=== PATIENT | male | born 1960 ===

== ENCOUNTER 2016-10-28 06:42 | Day surgery (SDC) | payer OTHER ==
[2016-10-28 07:48] VITALS: RESP 19
[2016-10-28] MEDS ORDERED: Midazolam 2 MG/2 ML VIAL ONE (08:57)
[2016-10-28] MEDS ORDERED: Propofol 10 mg/ml Inj (20 ML) ONE (08:57)
--- NOTE | 2016-10-28 09:01 | CP.SDSHP ---
Same Day Surgery H & P - History Proposed Procedure: colonoscopy Pre-Op Diagnosis: Perforated diverticulitis S/P colostomy and Hartmanns pouch - Previous Medical/Surgical History Cardiac: Other (syncope, anxiety disorder, gerd) Neuro: Backaches Misc: Other (Perforated diverticulitis, gastritis, L/S disc disease) Previous Surgical History: colostomy with Hartmanns 05/20 - Allergies Allergies: Allergies No Known Allergies Allergy (Verified 10/28/16 07:10) - Physical Exam Vital Signs: Vital Signs 10/28/16 07:00 Temperature 98.4 F Pulse Rate 58 L Respiratory 19 Rate Blood Pressure 111/61 O2 Sat by Pulse 99 Oximetry Mental Status: Alert & Oriented x3 Neuro: WNL Heart: WNL Lungs: WNL GI: WNL - Impression Impression: Diverticulitis with colostomy and Hartmanns for perforation 05/20 Pt. Evaluated Today:Candidate for Anesthesia & Procedure: Yes - Date & Time Date: 10/28/16 Time: 09:02 Short Stay Discharge - Short Stay Discharge Admitting Diagnosis/Reason for Visit: H/O/ COLONIC POLYPS / DIVERTICULITIS Disposition: HOME/ ROUTINE
[2016-10-28 09:47] VITALS: TEMP 98; O2SAT 100
[2016-10-28 10:48] VITALS: BP 103/51; PULSE 52
== END 2016-10-28 10:25 | disposition home or self-care (01) ==
LOC: C.ENDO 06:42
PROVIDERS: ATTEND Internal Medicine Gastroenterology
DX: K57.92 Diverticulitis of intestine, part unspecified, without perforation or abscess without bleeding (principal); K63.5 Polyp of colon
CPT/HCPCS: 45388; 88305; J2250; J2704

== ENCOUNTER 2016-11-12 11:11 | Inpatient (IN) | payer OTHER ==
[2016-11-12 11:42] VITALS: BMI 28.6
[2016-11-12 12:04] LABS: RBC URINE 1 /hpf (0-3); URINE BILIRUBIN NEGATIVE (NEGATIVE); URINE BLOOD NEGATIVE (NEGATIVE); URINE COLOR Yellow (YELLOW); URINE GLUCOSE (UA) NORMAL (Normal); URINE KETONE NEGATIVE (NEGATIVE); URINE LEUKOCYTE ESTERASE NEG Leu/uL (Negative); URINE PROTEIN NEGATIVE (NEGATIVE); URINE UROBILINOGEN NORMAL mg/dL (0.2-1.0); WBC URINE < 1 /hpf (0-5)
[2016-11-12] MEDS: Sodium Chloride 0.9% 1,000 ML IV SCH ×2 (12:14→22:02)
[2016-11-12 12:21] LABS: BASO # 0.1 K/uL (0.0-0.2); BASO % 0.8 % (0.0-2.0); EOS # 0.2 K/uL (0.0-0.7); EOS % 2.5 % (0.0-4.0); HEMATOCRIT 48.2 % (35.0-51.0); LYMPH % 25.7 % (20.0-40.0); MEAN CELL VOLUME 90.4 fL (80.0-94.0); MEAN CORPUSCULAR HEMOGLOBIN 30.2 pg (27.0-31.0); MEAN CORPUSCULAR HGB CONC 33.4 g/dL (33.0-37.0); MEAN PLATELET VOLUME 10.1 fL (7.2-11.7); MONO # 0.5 K/uL (0.0-0.8); MONO % 7.1 % (0.0-10.0); RED CELL DISTRIBUTION WIDTH 13.9 % (11.5-14.5); WHITE BLOOD COUNT 7.7 K/uL (4.8-10.8)
--- NOTE | 2016-11-12 12:24 | C.PDOC ---
History Of Present Illness Patient is a 55 y/o male that is sent to the ED by Dr. Shannon for admission for scheduled surgery for colostomy reversal tomorrow. Patient with history of perforated diverticulum with resection and colostomy by Dr Shannon 05/11/16. Otherwise, patient denies any current abdominal pain, or any other physical complaints at this time. Time Seen by Provider: 11/12/16 11:30 Chief Complaint (Nursing): GI Problem History Per: Patient History/Exam Limitations: no limitations Onset/Duration Of Symptoms: Days Current Symptoms Are (Timing): Still Present Severity: None Pain Scale Rating Of: 0 Radiation Of Pain To:: None Associated Symptoms: denies: Fever, Chills Exacerbating Factors: None Alleviating Factors: None Recent travel outside of the [place]: No Past Medical History Reviewed: Historical Data, Nursing Documentation, Vital Signs Vital Signs: Last Vital Signs Temp 98.2 F 11/12/16 11:42 Pulse 60 11/12/16 11:42 Resp 20 11/12/16 11:42 BP 127/85 11/12/16 11:42 Pulse Ox 99 11/12/16 12:29 - Medical History PMH: Anxiety, Depression Denies: Chronic Kidney Disease - [facility] Procedures BYPASS SIGMOID COLON TO CUTANEOUS, OPEN APPROACH (05/11/16) RESECTION OF SIGMOID COLON, OPEN APPROACH (05/11/16) Family History: States: No Known Family Hx - Social History Hx Alcohol Use: No Hx Substance Use: Yes - Immunization History Hx Tetanus Toxoid Vaccination: No Hx Influenza Vaccination: No Hx Pneumococcal Vaccination: No Review Of Systems Except As Marked, All Systems Reviewed And Found Negative. Constitutional: Negative for: Fever, Chills Gastrointestinal: Negative for: Nausea, Vomiting, Abdominal Pain Genitourinary: Negative for: Dysuria, Hematuria Musculoskeletal: Negative for: Back Pain Physical Exam - Physical Exam Appears: Non-toxic, No Acute Distress Skin: Normal Color, Warm, Dry Head: Atraumatic, Normacephalic Eye(s): bilateral: Normal Inspection, EOMI Neck: Normal ROM, Supple Chest: Symmetrical Cardiovascular: Rhythm Regular Respiratory: Normal Breath Sounds, No Rales, No Rhonchi, No Wheezing Gastrointestinal/Abdominal: Soft, No Tenderness, No Guarding, No Rebound, Other (colostomy bag in LLQ, soft pink no blood or stool) Extremity: Normal ROM Neurological/Psych: Oriented x3, Normal Speech, Normal Cognition ED Course And Treatment - Laboratory Results Result Diagrams: 11/12/16 12:15 11/12/16 12:15 Lab Interpretation: No Acute Changes ECG: Interpreted By Me, Viewed By Me ECG Rhythm: Sinus Bradycardia ECG Interpretation: No Acute Changes Rate From EC O2 Sat by Pulse Oximetry: 99 (on RA) Pulse Ox Interpretation: Normal Progress Note: Labs, EKG ordered and reviewed. Patient was given IV fluids. Medical Decision Making Medical Decision Making: Spoke with Dr Shannon who wants patient admitted for abdominal pain and dehydration, orders given for bowel prep, pre-op labs, and keep NPO past midnight. He wants medical consult with Dr Lema. Contact Dr Lema who then requests to page medical geneticist I called and spoke with resident, he will come to evaluate in ED. Dr Shannon on blue list, call and notify he asks to place on Lema service and will do surgical consult Disposition - Disposition Disposition: HOSPITALIZED Disposition Time: 11:51 Condition: STABLE - POA Present On Arrival: None - Clinical Impression Clinical Impression: Abdominal pain, Dehydration, Colostomy in place - PA / BLENDER/BRAZE APPLICATOR / Resident Statement MD/DO has reviewed & agrees with the documentation as recorded. - Scribe Statement The provider has reviewed the documentation as recorded by the Scribe Serina Aguirre All medical record entries made by the Scribe were at my direction and personally dictated by me. I have reviewed the chart and agree that the record accurately reflects my personal performance of the history, physical exam, medical decision making, and the department course for this patient. I have also personally directed, reviewed, and agree with the discharge instructions and disposition. Decision To Admit - Pt Status Changed To: Hospital Disposition Of: Inpatient - Admit Certification Admit to Inpatient:: After my assessment, the patient will require hospitalization for at least two midnights. This is because of the severity of symptoms shown, intensity of services needed, and/or the medical risk in this patient being treated as an outpatient. - InPatient: Physician Admission Certification:: Patient with history of perforated diverticulum with colon resection and colostomy by Dr Shannon. Patient now for scheduled reversal of colostomy. Needs bowel prep, IV fluids and pre-op labs - . Bed Request Type: Regular Admitting Physician: Geraldo Lucio Lema Jr. Patient Diagnosis: Abdominal pain, Dehydration, Colostomy in place
[2016-11-12 12:30] LABS: CHLORIDE 99 mmol/L (98-107); POTASSIUM 4.3 mmol/L (3.6-5.2); SODIUM 133 mmol/L (132-148)
[2016-11-12 12:32] LABS: GFR AFRICAN-AMERICAN > 60
[2016-11-12 12:33] LABS: ALB/GLOB RATIO 1.4 (1.0-2.1); ALKALINE PHOSPHATASE 43 U/L (38-126); ALT/SGPT 24 U/L (21-72); AST/SGOT 28 U/L (17-59); BLOOD UREA NITROGEN 14 mg/dL (9-20); CALCIUM 8.8 mg/dl (8.6-10.4); CARBON DIOXIDE 26 mmol/L (22-30); GLUCOSE,RANDOM 80 mg/dL (75-110); TOTAL PROTEIN 7.1 g/dL (6.3-8.3)
[2016-11-12] MEDS ORDERED: Peg-Electrolyte Oral Soln 4L (Golytely) PO ONE (12:35)
[2016-11-12] MEDS ORDERED: Dextrose 5%/0.45% NS 1,000 ML IV SCH (12:45)
[2016-11-12] MEDS ORDERED: Morphine 4 MG/ML VIAL ONE (15:26)
--- NOTE | 2016-11-12 15:39 | CP.PCM.HP ---
History of Present Illness - History of Present Illness History of Present Illness: HPI: Pt is a 55 y/o male with a PMHx of cocaine and marijuana abuse and CVA (6 years ago) who presents to the ED after he was sent by for a reversal of a colostomy bag. Pt reports that he had the ostomy placed in 2015 following an infection in his stomach. Pt cannot recall the exactly what the diagnosis was. He reports that he experienced pain in his back and numbness and tingling in his bilateral lower extremities. Pt reports that he currently feels well. Pt denies fever, chills, chest pain, shortness of breath, nausea, and vomiting. PMHx: Cocaine and marijuana abuse and CVA (6 years ago) Home medications: none reported Past Surgical Hx: ostomy bag (May 2016), right inguinal hernia repair many years ago Allergies: NKDA Social Hx: reports smoking half a pack of cigarettes/day for 40 years, reports social alcohol use, reports past history of heavy cocaine use, report daily marijuana use for over 40 years Present on Admission - Present on Admission Any Indicators Present on Admission: No Review of Systems - Constitutional Constitutional: absent: Chills, Fever - EENT Eyes: absent: Change in Vision Ears: absent: Disequilibrium, Dizziness Nose/Mouth/Throat: absent: Epistaxis - Cardiovascular Cardiovascular: absent: Chest Pain, Dyspnea, Leg Edema - Respiratory Respiratory: absent: Cough, Wheezing - Gastrointestinal Gastrointestinal: absent: Abdominal Pain, Nausea, Vomiting - Genitourinary Genitourinary: absent: Dysuria - Musculoskeletal Musculoskeletal: absent: Atrophy, Back Pain - Neurological Neurological: absent: Dizziness, Headaches - Psychiatric Psychiatric: absent: Anxiety - Endocrine Endocrine: absent: Palpitations - Hematologic/Lymphatic Hematologic: absent: Easy Bleeding Past Patient History - Past Medical History & Family History Past Medical History?: Yes - Past Social History Smoking Status: Heavy Smoker > 10 Cigarettes Daily - CARDIAC Hx Cardiac Disorders: Yes Hx Angina: Yes - PULMONARY Hx Respiratory Disorders: No - NEUROLOGICAL Hx Neurological Disorder: Yes HX Cerebrovascular Accident: Yes (''4 years ago'') - HEENT Hx HEENT Problems: No - RENAL Hx Chronic Kidney Disease: No - ENDOCRINE/METABOLIC Hx Endocrine Disorders: No - HEMATOLOGICAL/ONCOLOGICAL Hx Blood Disorders: No - INTEGUMENTARY Hx Dermatological Problems: No - MUSCULOSKELETAL/RHEUMATOLOGICAL Hx Musculoskeletal Disorders: No - GASTROINTESTINAL Hx Gastrointestinal Disorders: No Other/Comment: H/O RUPTURED COLON DUE TO INFECTION - GENITOURINARY/GYNECOLOGICAL Hx Genitourinary Disorders: Yes (SEE COMMENT) - PSYCHIATRIC Hx Anxiety: Yes Hx Depression: Yes Hx Substance Use: Yes - SURGICAL HISTORY Hx Surgeries: Yes (SEE COMMENT) Other/Comment: LEFT INGUINAL HERNIA SX - ANESTHESIA Hx Anesthesia: Yes Hx Anesthesia Reactions: No Hx Malignant Hyperthermia: No Meds Allergies/Adverse Reactions: Allergies Allergy/AdvReac Type Severity Reaction Status Date / Time No Known Allergies Allergy Verified 11/12/16 11:41 Physical Exam - Constitutional Appears: No Acute Distress - Head Exam Head Exam: ATRAUMATIC, NORMOCEPHALIC - Eye Exam Eye Exam: EOMI - ENT Exam ENT Exam: Mucous Membranes Moist. absent: Mucous Membranes Dry - Respiratory Exam Respiratory Exam: Clear to Auscultation Bilateral. absent: Rales, Rhonchi, Wheezes - Cardiovascular Exam Cardiovascular Exam: +S1, +S2. absent: Gallop, Rubs - GI/Abdominal Exam GI & Abdominal Exam: Normal Bowel Sounds, Soft. absent: Distended, Tenderness Additional comments: Ostomy bag present, clear - Extremities Exam Extremities exam: Positive for: full ROM. Negative for: pedal edema - Neurological Exam Neurological exam: Alert, Oriented x3 - Psychiatric Exam Psychiatric exam: Normal Affect, Normal Mood - Skin Skin Exam: Normal Color, Warm Results - Vital Signs Recent Vital Signs: Last Vital Signs Temp 97.3 F L 11/12/16 15:31 Pulse 60 11/12/16 15:31 Resp 20 11/12/16 15:31 BP 159/93 H 11/12/16 15:31 Pulse Ox 98 11/12/16 15:31 - Labs Result Diagrams: 11/12/16 12:15 11/12/16 12:15 Labs: Laboratory Results - last 24 hr 11/12/16 11/12/16 11/12/16 12:00 12:15 12:15 WBC 7.7 RBC 5.34 Hgb 16.1 Hct 48.2 MCV 90.4 MCH 30.2 MCHC 33.4 RDW 13.9 Plt Count 174 MPV 10.1 Neut % (Auto) 63.9 Lymph % (Auto) 25.7 [place] % (Auto) 7.1 Eos % (Auto) 2.5 Baso % (Auto) 0.8 Neut # 4.9 Lymph # 2.0 [place] # 0.5 Eos # 0.2 Baso # 0.1 PT INR APTT Sodium 133 Potassium 4.3 Chloride 99 Carbon Dioxide 26 Anion Gap 13 BUN 14 Creatinine 0.7 L Est GFR ( Amer) > 60 Est GFR (Non-Af Amer) > 60 Random Glucose 80 Calcium 8.8 Total Bilirubin 1.0 AST 28 ALT 24 Alkaline Phosphatase 43 Total Protein 7.1 Albumin 4.2 Globulin 2.9 Albumin/Globulin Ratio 1.4 Urine Color Yellow Urine Clarity Clear Urine pH 5.0 Ur Specific [place] 1.018 Urine Protein Negative Urine Glucose (UA) Normal Urine Ketones Negative Urine Blood Negative Urine Nitrate Negative Urine Bilirubin Negative Urine Urobilinogen Normal Ur Leukocyte Esterase Neg Urine WBC (Auto) < 1 Urine RBC (Auto) 1 11/12/16 12:15 WBC RBC Hgb Hct MCV MCH MCHC RDW Plt Count MPV Neut % (Auto) Lymph % (Auto) [place] % (Auto) Eos % (Auto) Baso % (Auto) Neut # Lymph # [place] # Eos # Baso # PT 10.7 INR 1.0 APTT 31 Sodium Potassium Chloride Carbon Dioxide Anion Gap BUN Creatinine Est GFR ( Amer) Est GFR (Non-Af Amer) Random Glucose Calcium Total Bilirubin AST ALT Alkaline Phosphatase Total Protein Albumin Globulin Albumin/Globulin Ratio Urine Color Urine Clarity Urine pH Ur Specific [place] Urine Protein Urine Glucose (UA) Urine Ketones Urine Blood Urine Nitrate Urine Bilirubin Urine Urobilinogen Ur Leukocyte Esterase Urine WBC (Auto) Urine RBC (Auto) Assessment & Plan - Assessment and Plan (Free Text) Assessment: Reversal of Ostomy: General surgery, Dr. Shannon, consulted. Antiobiotics, neomycin and flagyl, ordered as per Dr. Shannon Type and screen NPO after midnight Prophlyactic Measures: DVT: SCDs GI: Protonix 40 mg po qd
[2016-11-13] MEDS: Sodium Chloride 0.9% 1,000 ML IV SCH ×2 (08:31→20:19)
[2016-11-13] MEDS ORDERED: Pantoprazole 40 mg EC Tab PO SCH (10:00)
--- NOTE | 2016-11-13 11:04 | CP.PCM.PN ---
<Mari Madison - Last Filed: 11/13/16 11:01> Subjective - Date & Time of Evaluation Date of Evaluation: 11/13/16 Time of Evaluation: 11:04 - Subjective Subjective: Medicine Progress Note Patient seen and examined this morning. Patient is eager for his ostomy bag reversal. Patient states that he has had the bag since May 2016 after he had infection in his colon. Pt has no acute complaints and denies fever, chills , headache, nausea, vomiting, chest pain, shortness of breath, abdominal pain, diarrhea, constipation. Objective - Vital Signs/Intake and Output Vital Signs (last 24 hours): Temp Pulse Resp BP Pulse Ox 98.5 F 51 L 20 104/62 98 11/13/16 08:09 11/13/16 08:09 11/13/16 08:09 11/13/16 08:09 11/13/16 08:09 Intake and Output: 11/13/16 11/13/16 06:59 18:59 Intake Total 800 Output Total 200 Balance 600 - Medications Medications: Current Medications Sodium Chloride (Sodium Chloride 0.9%) 1,000 mls @ 100 mls/hr IV .Q10H [facility] Last Admin: 11/13/16 08:31 Dose: Not Given Morphine Sulfate (Morphine) 0.5 mg IVP Q4 PRN PRN Reason: Pain, moderate (4-7) Pantoprazole Sodium (Protonix Ec Tab) 40 mg PO DAILY [facility] Last Admin: 11/13/16 09:04 Dose: Not Given - Labs Labs: 11/12/16 12:15 11/12/16 12:15 PT 10.7 SECONDS (9.7-12.2) 11/12/16 12:15 INR 1.0 11/12/16 12:15 APTT 31 SECONDS (21-34) 11/12/16 12:15 - Constitutional Appears: Well, Non-toxic, No Acute Distress - Head Exam Head Exam: ATRAUMATIC, NORMOCEPHALIC - Eye Exam Eye Exam: EOMI, Normal appearance Pupil Exam: NORMAL ACCOMODATION - ENT Exam ENT Exam: Mucous Membranes Moist - Neck Exam Neck Exam: Normal Inspection - Respiratory Exam Respiratory Exam: Clear to Ausculation Bilateral, NORMAL BREATHING PATTERN. absent: Rhonchi, Wheezes, Respiratory Distress - Cardiovascular Exam Cardiovascular Exam: REGULAR RHYTHM, +S1, +S2 - GI/Abdominal Exam GI & Abdominal Exam: Soft, Normal Bowel Sounds. absent: Firm, Guarding, Rigid, Tenderness Additional comments: left ostomy bag - Extremities Exam Extremities Exam: Normal Inspection. absent: Pedal Edema - Neurological Exam Neurological Exam: Alert, Awake, CN II-XII Intact, Normal Gait, Oriented x3 - Psychiatric Exam Psychiatric exam: Normal Affect, Normal Mood - Skin Skin Exam: Dry, Intact, Normal Color, Warm Assessment and Plan - Assessment and Plan (Free Text) Assessment: 1. Reversal of Ostomy: General surgery, Dr. Shannon, consulted. Antiobiotics, neomycin and flagyl, ordered as per Dr. Shannon Type and screen NPO for ostomy reversal today 2. Prophlyactic Measures: DVT: SCDs GI: Protonix 40 mg po qd No chemical anticoagulation due to pending surgery Management per Dr Lema <Geraldo Lema Jr. - Last Filed: 11/16/16 10:06> Objective - Vital Signs/Intake and Output Vital Signs (last 24 hours): Temp Pulse Resp BP Pulse Ox 98.4 F 98 H 13 121/60 98 11/16/16 09:03 11/16/16 09:00 11/16/16 09:00 11/16/16 08:03 11/16/16 09:00 Intake and Output: 11/16/16 11/16/16 06:59 18:59 Intake Total 1200 400 Output Total 700 0 Balance 500 400 - Medications Medications: Current Medications Acetylcysteine (Acetylcysteine 20%) 4 ml INH RQ6 [facility] Last Admin: 11/16/16 01:35 Dose: Not Given Albuterol/Ipratropium (Duoneb 3 Mg/0.5 Mg (3 Ml) Ud) 3 ml INH RQ6 [facility] Last Admin: 11/16/16 01:35 Dose: Not Given Enoxaparin Sodium (Lovenox) 40 mg SC DAILY [facility] Last Admin: 11/16/16 09:13 Dose: 40 mg Ketorolac Tromethamine (Toradol) 30 mg IVP Q6 [facility] Stop: 11/17/16 12:01 Last Admin: 11/16/16 06:04 Dose: 30 mg Pantoprazole Sodium (Protonix Inj) 40 mg IVP DAILY [facility] Last Admin: 11/16/16 09:13 Dose: 40 mg - Labs Labs: 11/16/16 06:25 11/16/16 06:25 PT 10.7 SECONDS (9.7-12.2) 11/12/16 12:15 INR 1.0 11/12/16 12:15 APTT 31 SECONDS (21-34) 11/12/16 12:15 Attending/Attestation - Attestation I have personally seen and examined this patient.: Yes I have fully participated in the care of the patient.: Yes I have reviewed all pertinent clinical information, including history, physical exam and plan: Yes Notes (Text): 11/16/16 10:06 Resident note and findings reviewed
[2016-11-13] MEDS ORDERED: Propofol 10 mg/ml Inj (20 ML) ONE (14:19)
[2016-11-13] MEDS ORDERED: Lidocaine 4% (Laryng-O-Jet) Kit MM ONE (14:19)
[2016-11-13] MEDS ORDERED: Midazolam 2 MG/2 ML VIAL ONE (14:19)
[2016-11-13] MEDS ORDERED: Rocuronium 10 mg/ml (10 ml) ONE (14:19)
[2016-11-13] MEDS ORDERED: Succinylcholine Chloride 20 mg/ml Syr (5 ml) IV ONE (14:19)
[2016-11-13] MEDS ORDERED: Lidocaine Hydrochloride 5 ML INJ ONE (14:19)
[2016-11-13] MEDS ORDERED: Lactated Ringer's 1,000 ML IV ONE (14:30)
[2016-11-13] MEDS ORDERED: metroNIDAZOLE IV 500 mg/100 ml 500 MG/100 ML BAG ONE (15:07)
[2016-11-13] MEDS ORDERED: cefTRIAXone IV 1 gm in Dextros 50 ML IVPB ONE (15:08)
[2016-11-13] MEDS ORDERED: HYDROmorphone 0.5 mg/0.5 ml ISec IVP PRN ×2 (15:10→16:52)
[2016-11-13] MEDS ORDERED: Dexamethasone 4 mg/1 ml IVP PRN (16:52)
[2016-11-13] MEDS ORDERED: HYDROmorphone 0.5 mg/0.5 ml ISec IVP ONE (17:15)
--- NOTE | 2016-11-13 18:53 | CP.PCM.CON ---
<Donavon Ambrosio - Last Filed: 11/13/16 18:54> History of Present Illness - History of Present Illness History of Present Illness: ICU consult note for Concaving Machine Operator, Wil Barber HPI: Pt is a 55 y/o male with a PMHx of cocaine and marijuana abuse and CVA (6 years ago) who presents to the ED after he was sent by for a reversal of a colostomy bag. Pt reports that he had the ostomy placed in of 2015 following "an infection in his stomach." Pt cannot recall the exactly what the diagnosis was. He reports that he experienced pain in his back and numbness and tingling in his bilateral lower extremities. Pt reports that he currently feels well. Pt denies fever, chills, chest pain, shortness of breath, nausea, and vomiting. ICU consult for monitoring S/P Kentrell Reversal. Pt hemodynamically stable. PMHx: Cocaine and marijuana abuse and CVA (6 years ago) Home medications: none reported Past Surgical Hx: ostomy bag (May 2016), right inguinal hernia repair many years ago Allergies: NKDA Social Hx: reports smoking half a pack of cigarettes/day for 40 years, reports social alcohol use, reports past history of heavy cocaine use, report daily marijuana use for over 40 years Review of Systems - Constitutional Constitutional: absent: Chills, Fever - EENT Eyes: absent: Change in Vision Ears: absent: Decreased Hearing - Cardiovascular Cardiovascular: absent: Chest Pain, Dyspnea - Respiratory Respiratory: absent: Dyspnea, Dyspnea on Exertion - Gastrointestinal Gastrointestinal: Abdominal Pain (appropriate s/p surgery). absent: Nausea, Vomiting - Genitourinary Genitourinary: absent: Dysuria - Musculoskeletal Musculoskeletal: absent: Numbness, Tingling - Neurological Neurological: absent: Weakness Past Patient History - Past Medical History & Family History Past Medical History?: Yes - Past Social History Smoking Status: Heavy Smoker > 10 Cigarettes Daily - CARDIAC Hx Cardiac Disorders: Yes Hx Angina: Yes - PULMONARY Hx Respiratory Disorders: No - NEUROLOGICAL Hx Neurological Disorder: Yes HX Cerebrovascular Accident: Yes (''4 years ago'') - HEENT Hx HEENT Problems: No - RENAL Hx Chronic Kidney Disease: No - ENDOCRINE/METABOLIC Hx Endocrine Disorders: No - HEMATOLOGICAL/ONCOLOGICAL Hx Blood Disorders: No - INTEGUMENTARY Hx Dermatological Problems: No - MUSCULOSKELETAL/RHEUMATOLOGICAL Hx Musculoskeletal Disorders: No Hx Falls: No - GASTROINTESTINAL Hx Gastrointestinal Disorders: No Other/Comment: H/O RUPTURED COLON DUE TO INFECTION. Pt with left abdomen colostomy - GENITOURINARY/GYNECOLOGICAL Hx Genitourinary Disorders: Yes (SEE COMMENT) - PSYCHIATRIC Hx Anxiety: Yes Hx Depression: Yes Hx Substance Use: Yes (marijuana ad tiago) - SURGICAL HISTORY Hx Surgeries: Yes (SEE COMMENT) Other/Comment: LEFT INGUINAL HERNIA SX - ANESTHESIA Hx Anesthesia: Yes Hx Anesthesia Reactions: No Hx Malignant Hyperthermia: No Meds Allergies/Adverse Reactions: Allergies Allergy/AdvReac Type Severity Reaction Status Date / Time No Known Allergies Allergy Verified 11/12/16 11:41 - Medications Medications: Current Medications Dexamethasone (Decadron Inj) 4 mg IVP ONCE PRN PRN Reason: Nausea/Vomiting Stop: 11/13/16 18:54 Enoxaparin Sodium (Lovenox) 40 mg SC DAILY [facility] Hydromorphone HCl (Dilaudid) 0.5 mg IVP Q15M PRN PRN Reason: Pain, moderate (4-7) Stop: 11/13/16 18:53 Last Admin: 11/13/16 16:54 Dose: 0.5 mg Sodium Chloride (Sodium Chloride 0.9%) 1,000 mls @ 100 mls/hr IV .Q10H [facility] Last Admin: 11/13/16 08:31 Dose: Not Given Lactated Ringer's (Lactated Ringer's) 1,000 mls @ 100 mls/hr IV .Q10H [facility] Ketorolac Tromethamine (Toradol) 30 mg IVP ONCE PRN PRN Reason: Pain, moderate (4-7) Stop: 11/13/16 18:53 Last Admin: 11/13/16 17:07 Dose: 30 mg Meperidine HCl (Demerol) 25 mg IVP ONCE PRN PRN Reason: Shivering/Rigor Stop: 11/13/16 18:54 Metoclopramide HCl (Reglan) 10 mg IVP ONCE PRN PRN Reason: Nausea/Vomiting Stop: 11/13/16 18:54 Morphine Sulfate (Morphine) 0.5 mg IVP Q4 PRN PRN Reason: Pain, moderate (4-7) Ondansetron HCl (Zofran Inj) 4 mg IVP ONCE PRN PRN Reason: Nausea/Vomiting Stop: 11/13/16 18:54 Pantoprazole Sodium (Protonix Ec Tab) 40 mg PO DAILY [facility] Last Admin: 11/13/16 09:04 Dose: Not Given Physical Exam - Head Exam Head Exam: ATRAUMATIC, NORMAL INSPECTION, NORMOCEPHALIC - Eye Exam Eye Exam: EOMI Pupil Exam: PERRL - ENT Exam ENT Exam: Mucous Membranes Moist - Respiratory Exam Respiratory Exam: Clear to Auscultation Bilateral, NORMAL BREATHING PATTERN - Cardiovascular Exam Cardiovascular Exam: REGULAR RHYTHM, +S1, +S2 - GI/Abdominal Exam GI & Abdominal Exam: Soft, Tenderness (appropriate around surgical site) - Extremities Exam Extremities exam: Positive for: normal inspection. Negative for: pedal edema - Neurological Exam Neurological exam: Alert, Oriented x3 - Skin Skin Exam: Normal Color, Warm Results - Vital Signs Recent Vital Signs: Last Vital Signs Temp 99.5 F 11/13/16 16:50 Pulse 60 11/13/16 18:49 Resp 16 11/13/16 18:49 BP 126/64 11/13/16 18:49 Pulse Ox 97 11/13/16 18:49 - Labs Result Diagrams: 11/12/16 12:15 11/12/16 12:15 Labs: Laboratory Results - last 24 hr 11/12/16 18:24 Blood Type A NEGATIVE Antibody Screen Negative Assessment & Plan - Assessment and Plan (Free Text) Assessment: Pt is a 55 y/o male with a PMHx of cocaine and marijuana abuse and CVA (6 years ago) who presents to the ED after he was sent by for a reversal of a colostomy Plan: Pt status: Admit to ICU for monitoring s/p Kentrell reversal Reversal of Ostomy: General surgery, Dr. Shannon, consulted S/P Kentrell Reversal Morphine 0.5 mg IV Q4H Hemodynamically stable Prophlyactic Measures: DVT: SCDs, Lovenox 40mg SC Daily (start tomorrow, 11/14) GI: Protonix 40 mg po Daily LR @ 100 cc/hr D/w Dr. Wil Ambrosio, PGY-1 <Marcelino De La Torre P - Last Filed: 11/22/16 19:40> Results - Vital Signs Recent Vital Signs: Last Vital Signs Temp 98.6 F 11/18/16 08:57 Pulse 87 11/18/16 08:57 Resp 20 11/18/16 08:57 BP 125/76 11/18/16 08:57 Pulse Ox 95 11/18/16 08:57 - Labs Result Diagrams: 11/18/16 07:17 11/18/16 07:17 Attending/Attestation - Attestation I have personally seen and examined this patient.: Yes I have fully participated in the care of the patient.: Yes I have reviewed all pertinent clinical information: Yes
--- NOTE | 2016-11-13 20:07 | OP ---
PROCEDURE DATE: 11/12/2016 PREOPERATIVE DIAGNOSES: Diverticulitis status post Kentrell's procedure for perforated diverticulum. POSTOPERATIVE DIAGNOSES: Diverticulitis status post Kentrell's procedure for perforated diverticulum . PROCEDURE PERFORMED: Reversal of Kentrell's procedure. SURGEON: Partha Shannon MD HAND CLERICAL VERIFIER: Dr. Mcgowan. ANESTHESIA: General. ESTIMATED BLOOD LOSS: 50 mL. POSTOPERATIVE CONDITION: Stable. INDICATIONS FOR SURGERY: This is a 55-year-old male who is 8 months status post a Kentrell's procedu re for a perforated diverticulum. He now will undergo a reversal of his Kentrell's procedure. GROSS FINDINGS: There were minimal adhesions; however, there were very dense adhesions of a portion of the ileum to the previous rectal stump, which had to be taken down sharply, a resulting serosal te ar in the ileum required repair with silk. PROCEDURE: The patient was taken to the operating room and general anesthesia was administered. The abdomen and rectum were prepped and draped. A midline incision was made through the previous midlin e incision and adhesions were taken down sharply. The bowel was mobilized into the upper quadrant an d the aforementioned portion of ileum, which was adhesed to the rectal stump was taken down sharply a nd the serosa of the ileum was repaired with interrupted silk sutures. Next, the colostomy was taken down by making a circular incision using the Bovie and dissecting it out of the subcutaneous space t o the fascial layer. It was pulled through the abdomen and dissection was carried out sharply and bl untly until it was completely dissected free into the abdomen. The descending colon was further mobi lized along its retroperitoneal attachments and pursestring device was placed across the colon just b elow where the colostomy came through the abdomen. Approximately 5 cm portion of colon was resected in this fashion. A carlson from a 25 EEA stapler was placed in the distal colon and secured using the p ursestring suture. A 25 EEA was then introduced in the rectum and carefully attached to the carlson. T here was no "click" heard however and this had to be then taken apart to try again for secure fasteni ng. During this maneuver, the distal colon where the carlson was was partially torn, so a new pursestri ng device was placed proximal to this and this area of the colon was also resected. A new carlson was p laced and secured with a pursestring device and this was then secured to the EEA which had been inser cameron through the rectum, through the rectal stump and a secure fasten was accomplished. The EEA anast omosis was then fired and the EEA was removed easily. The air was then insufflated through the rectu m under water in the pelvis and there were no air leaks noted. The abdomen was then irrigated with 5 liters of warm saline. The colostomy site was closed internally with large bites through the rectus muscle, to the peritoneum and rectus muscle using a running #1 PDS suture. A Manjinder drain was placed in the pelvis and after the small bowel was again run, the abdomen was run and inspected. The abdom en was closed with a running #1 double stranded PDS suture. Because there was very little subcutaneo us layer to do a nice 2 layer closure, the subcutaneous tissue was widely mobilized in a greater than 30 square cm fashion and a greater than 30 square cm adjacent tissue transfer closure was performed with multiple layers of Monocryl and skin clips. The patient tolerated the procedure well and return ed to recovery room in stable condition. Partha Shannon MD cc: [id number] TT: 11/13/2016 20:05:55 cristina
[2016-11-13] MEDS: Lactated Ringer's 1,000 ML IV SCH (22:16)
[2016-11-14] MEDS: Lactated Ringer's 1,000 ML IV SCH ×4 (01:21→13:49)
[2016-11-14] MEDS: Sodium Chloride 0.9% 1,000 ML IV SCH (04:42)
[2016-11-14 06:38] LABS: BASO % 0.5 % (0.0-2.0); EOS % 0.1 % (0.0-4.0); HEMATOCRIT 47.1 % (35.0-51.0); LYMPH # 1.3 K/uL (1.0-4.3); LYMPH % 13.4 % (20.0-40.0); MEAN CELL VOLUME 88.9 fL (80.0-94.0); MEAN CORPUSCULAR HEMOGLOBIN 29.5 pg (27.0-31.0); MEAN CORPUSCULAR HGB CONC 33.1 g/dL (33.0-37.0); MONO # 0.7 K/uL (0.0-0.8); MONO % 7.9 % (0.0-10.0); RED CELL DISTRIBUTION WIDTH 13.4 % (11.5-14.5); WHITE BLOOD COUNT 9.3 K/uL (4.8-10.8)
[2016-11-14 07:15] LABS: CHLORIDE 99 mmol/L (98-107)
[2016-11-14 07:16] LABS: POTASSIUM 3.6 mmol/L (3.6-5.2); SODIUM 133 mmol/L (132-148)
[2016-11-14 07:18] LABS: ALKALINE PHOSPHATASE 42 U/L (38-126); ALT/SGPT 27 U/L (21-72); AST/SGOT 19 U/L (17-59); BLOOD UREA NITROGEN 8 mg/dL (9-20); CARBON DIOXIDE 26 mmol/L (22-30); GFR AFRICAN-AMERICAN > 60; GLUCOSE,RANDOM 87 mg/dL (75-110); PHOSPHOROUS 3.4 mg/dL (2.5-4.5); TOTAL PROTEIN 5.9 g/dL (6.3-8.3)
[2016-11-14 07:19] LABS: CALCIUM 8.1 mg/dl (8.6-10.4); MAGNESIUM 1.2 mg/dL (1.6-2.3)
[2016-11-14] MEDS: Enoxaparin 40 mg Syringe SC SCH (10:40)
--- NOTE | 2016-11-14 13:12 | CP.PCM.PN ---
Subjective - Date & Time of Evaluation Date of Evaluation: 11/14/16 Time of Evaluation: 13:56 - Subjective Subjective: Medicine Progress Note Patient seen and examined. POD #1 s/p ostomy bag reversal. Patient sitting in chair at bedside, AAOx3. Pt complains of severe abdominal pain. Pt is uncomfortable with NGT. Denies fever, chills, nausea, vomiting, flatus, chest pain, shortness of breath, palpitations, and headache. Patient transferred to med/surg today per it technical architect. Objective - Vital Signs/Intake and Output Vital Signs (last 24 hours): Temp Pulse Resp BP Pulse Ox 97.8 F 70 20 141/81 96 11/14/16 12:00 11/14/16 11:49 11/14/16 11:49 11/14/16 11:49 11/14/16 11:49 Intake and Output: 11/14/16 11/14/16 06:59 18:59 Intake Total 1200 700 Output Total 1070 225 Balance 130 475 - Medications Medications: Current Medications Enoxaparin Sodium (Lovenox) 40 mg SC DAILY [facility] Last Admin: 11/14/16 10:40 Dose: 40 mg Sodium Chloride (Sodium Chloride 0.9%) 1,000 mls @ 100 mls/hr IV .Q10H [facility] Last Admin: 11/14/16 04:42 Dose: Not Given Lactated Ringer's (Lactated Ringer's) 1,000 mls @ 100 mls/hr IV .Q10H [facility] Last Admin: 11/14/16 10:39 Dose: 100 mls/hr Morphine Sulfate (Morphine) 0.5 mg IVP Q4 PRN PRN Reason: Pain, moderate (4-7) Last Admin: 11/14/16 12:25 Dose: 0.5 mg Pantoprazole Sodium (Protonix Inj) 40 mg IVP DAILY [facility] Last Admin: 11/14/16 10:40 Dose: 40 mg - Labs Labs: 11/14/16 06:31 11/14/16 06:31 PT 10.7 SECONDS (9.7-12.2) 11/12/16 12:15 INR 1.0 11/12/16 12:15 APTT 31 SECONDS (21-34) 11/12/16 12:15 - Constitutional Appears: Non-toxic - Head Exam Head Exam: ATRAUMATIC, NORMOCEPHALIC - Eye Exam Eye Exam: EOMI, Normal appearance - ENT Exam ENT Exam: Mucous Membranes Moist - Neck Exam Neck Exam: Normal Inspection - Respiratory Exam Respiratory Exam: Clear to Ausculation Bilateral, NORMAL BREATHING PATTERN. absent: Rales, Rhonchi, Wheezes, Respiratory Distress - Cardiovascular Exam Cardiovascular Exam: REGULAR RHYTHM, +S1, +S2 - GI/Abdominal Exam GI & Abdominal Exam: Soft, Tenderness. absent: Distended, Firm, Rigid Additional comments: dressing on abdomen dry, clean and intact Manjinder drain in abdomen draining serosangenous fluid - Extremities Exam Extremities Exam: Normal Inspection. absent: Pedal Edema - Neurological Exam Neurological Exam: Alert, Awake, Oriented x3 - Psychiatric Exam Psychiatric exam: Normal Affect, Normal Mood - Skin Skin Exam: Dry, Intact, Normal Color, Warm Assessment and Plan - Assessment and Plan (Free Text) Assessment: 1. Reversal of Ostomy: General surgery, Dr. Shannon primary. Management per attending. POD #1 s/p ostomy reversal NGT in place on suction NPO Morphine 2mg IV q6h prn pain Manjinder drain output 2. Prophlyactic Measures: DVT: SCDs GI: Protonix 40 mg IV daily No chemical anticoagulation due to surgery Management per Dr Lema
[2016-11-14] MEDS ORDERED: Lactated Ringer's 1,000 ML IV SCH (13:55)
[2016-11-14] MEDS: Magnesium Sulfate 1 gm in D5W 1 GM/100 ML BAG IVPB SCH ×2 (14:25→15:31)
[2016-11-14] MEDS: Dextrose 5%/0.9% NS 1,000 ML IV SCH (17:53)
[2016-11-15] MEDS: Dextrose 5%/0.9% NS 1,000 ML IV SCH (02:35)
[2016-11-15] MEDS: Enoxaparin 40 mg Syringe SC SCH (09:56)
--- NOTE | 2016-11-15 12:10 | CP.PCM.PN ---
<Mari Madison - Last Filed: 11/15/16 12:08> Subjective - Date & Time of Evaluation Date of Evaluation: 11/15/16 Time of Evaluation: 12:08 - Subjective Subjective: Medicine Progress Note Patient seen and examined. POD #2 s/p ostomy bag reversal. Patient's NGT was removed and patient states that he is feeling much better today. Patient's pain is well controlled with current dose of medication. PT ordered to encourage ambulation. Patient was encouraged to use incentive spirometer. Patient has not passed flatus yet. Denies fever, nausea, vomiting, chest pain and shortness of breath. Objective - Vital Signs/Intake and Output Vital Signs (last 24 hours): Temp Pulse Resp BP Pulse Ox 98.4 F 74 18 114/74 91 L 11/15/16 08:50 11/15/16 08:50 11/15/16 08:50 11/15/16 08:50 11/15/16 00:30 Intake and Output: 11/15/16 11/15/16 06:59 18:59 Intake Total 100 Output Total 100 Balance 0 - Medications Medications: Current Medications Enoxaparin Sodium (Lovenox) 40 mg SC DAILY [facility] Last Admin: 11/15/16 09:56 Dose: 40 mg Dextrose/Sodium Chloride (Dextrose 5%/0.9% Ns 1000 Ml) 1,000 mls @ 100 mls/hr IV .Q10H [facility] Last Admin: 11/15/16 02:35 Dose: 100 mls/hr Morphine Sulfate (Morphine) 4 mg IVP Q4H PRN PRN Reason: Pain, moderate (4-7) Last Admin: 11/15/16 10:38 Dose: 4 mg Pantoprazole Sodium (Protonix Inj) 40 mg IVP DAILY [facility] Last Admin: 11/15/16 09:56 Dose: 40 mg - Labs Labs: 11/14/16 06:31 11/14/16 06:31 PT 10.7 SECONDS (9.7-12.2) 11/12/16 12:15 INR 1.0 11/12/16 12:15 APTT 31 SECONDS (21-34) 11/12/16 12:15 - Additional Findings Additional findings: - Constitutional Appears: Non-toxic - Head Exam Head Exam: ATRAUMATIC, NORMOCEPHALIC - Eye Exam Eye Exam: EOMI, Normal appearance - ENT Exam ENT Exam: Mucous Membranes Moist - Neck Exam Neck Exam: Normal Inspection - Respiratory Exam Respiratory Exam: Clear to Ausculation Bilateral, NORMAL BREATHING PATTERN. absent: Rales, Rhonchi, Wheezes, Respiratory Distress - Cardiovascular Exam Cardiovascular Exam: REGULAR RHYTHM, +S1, +S2 - GI/Abdominal Exam GI & Abdominal Exam: Soft, Tenderness. absent: Distended, Firm, Rigid Additional comments: dressing on abdomen dry, clean and intact Manjinder drain in abdomen draining serosangenous fluid - Extremities Exam Extremities Exam: Normal Inspection. absent: Pedal Edema - Neurological Exam Neurological Exam: Alert, Awake, Oriented x3 - Psychiatric Exam Psychiatric exam: Normal Affect, Normal Mood - Skin Skin Exam: Dry, Intact, Normal Color, Warm Assessment and Plan - Assessment and Plan (Free Text) Assessment: 1. Reversal of Ostomy: General surgery, Dr. Shannon primary. Management per attending. POD #2 s/p ostomy reversal NGT removed Morphine 4mg IV q4h prn pain Manjinder drain output Encourage incentive spirometer use Encourage OOB 2. Prophlyactic Measures: DVT: SCDs GI: Protonix 40 mg IV daily No chemical anticoagulation due to surgery Management per Dr Lema <Geraldo Lema Jr. - Last Filed: 11/16/16 10:08> Objective - Vital Signs/Intake and Output Vital Signs (last 24 hours): Temp Pulse Resp BP Pulse Ox 98.4 F 98 H 13 121/60 98 11/16/16 09:03 11/16/16 09:00 11/16/16 09:00 11/16/16 08:03 11/16/16 09:00 Intake and Output: 11/16/16 11/16/16 06:59 18:59 Intake Total 1200 400 Output Total 700 0 Balance 500 400 - Medications Medications: Current Medications Acetylcysteine (Acetylcysteine 20%) 4 ml INH RQ6 [facility] Last Admin: 11/16/16 01:35 Dose: Not Given Albuterol/Ipratropium (Duoneb 3 Mg/0.5 Mg (3 Ml) Ud) 3 ml INH RQ6 [facility] Last Admin: 11/16/16 01:35 Dose: Not Given Enoxaparin Sodium (Lovenox) 40 mg SC DAILY [facility] Last Admin: 11/16/16 09:13 Dose: 40 mg Ketorolac Tromethamine (Toradol) 30 mg IVP Q6 [facility] Stop: 11/17/16 12:01 Last Admin: 11/16/16 06:04 Dose: 30 mg Pantoprazole Sodium (Protonix Inj) 40 mg IVP DAILY [facility] Last Admin: 11/16/16 09:13 Dose: 40 mg - Labs Labs: 11/16/16 06:25 11/16/16 06:25 PT 10.7 SECONDS (9.7-12.2) 11/12/16 12:15 INR 1.0 11/12/16 12:15 APTT 31 SECONDS (21-34) 11/12/16 12:15 Attending/Attestation - Attestation I have personally seen and examined this patient.: Yes I have fully participated in the care of the patient.: Yes I have reviewed all pertinent clinical information, including history, physical exam and plan: Yes Notes (Text): 11/16/16 10:08 Agree with resident note and findings
[2016-11-15] MEDS ORDERED: Potassium Ch 20mEq in D5-1/2NS 1,000 ML IV SCH (12:45)
--- NOTE | 2016-11-15 16:10 | CP.PCM.CON ---
History of Present Illness - History of Present Illness History of Present Illness: This is a 55 year old male with PMH of CVA 6 years ago and Bailon's procedure in the past with reversal of Bailon's procedure on 11/12/2016, as per hcart there is also cocaine, marijuana abuse. He is a little anxious and his pain tolerance is low. He has been receiving lots of pain medications to the point that he has plugged the left side of the lung. Rapid response was called for respiratory distress and desaturation. He is not tachypneic, but does desaturate in the low 90's. Saturated 93% on 50% ventimask. pe: bp 138/96 mmhg, hr 103 bpm, rr 22, o2 100% on 50% ventimask, afebrile aaox3 s1, s2 sinus tachycardia right lung good air of entry, none on the left side of the lung abdomen soft, tender around site of surgical procedure a/p: needs awake bronchoscopy to suction out secretions, consulted Dr. Huerta, will do it this evening in OR. For now chest pt and nebulizations. NO MORE NARCOTICS. Past Patient History - Past Medical History & Family History Past Medical History?: Yes - Past Social History Smoking Status: Heavy Smoker > 10 Cigarettes Daily - CARDIAC Hx Cardiac Disorders: Yes Hx Angina: Yes - PULMONARY Hx Respiratory Disorders: No - NEUROLOGICAL Hx Neurological Disorder: Yes HX Cerebrovascular Accident: Yes (''4 years ago'') - HEENT Hx HEENT Problems: No - RENAL Hx Chronic Kidney Disease: No - ENDOCRINE/METABOLIC Hx Endocrine Disorders: No - HEMATOLOGICAL/ONCOLOGICAL Hx Blood Disorders: No - INTEGUMENTARY Hx Dermatological Problems: No - MUSCULOSKELETAL/RHEUMATOLOGICAL Hx Musculoskeletal Disorders: No Hx Falls: No - GASTROINTESTINAL Hx Gastrointestinal Disorders: No Other/Comment: H/O RUPTURED COLON DUE TO INFECTION. Pt with left abdomen colostomy - GENITOURINARY/GYNECOLOGICAL Hx Genitourinary Disorders: Yes (SEE COMMENT) - PSYCHIATRIC Hx Anxiety: Yes Hx Depression: Yes Hx Substance Use: Yes (marijuana ad tiago) - SURGICAL HISTORY Hx Surgeries: Yes (SEE COMMENT) Other/Comment: LEFT INGUINAL HERNIA SX - ANESTHESIA Hx Anesthesia: Yes Hx Anesthesia Reactions: No Hx Malignant Hyperthermia: No Meds Allergies/Adverse Reactions: Allergies Allergy/AdvReac Type Severity Reaction Status Date / Time No Known Allergies Allergy Verified 11/12/16 11:41 - Medications Medications: Current Medications Acetylcysteine (Acetylcysteine 20%) 4 ml INH RQ6 [facility] Albuterol/Ipratropium (Duoneb 3 Mg/0.5 Mg (3 Ml) Ud) 3 ml INH RQ6 [facility] Enoxaparin Sodium (Lovenox) 40 mg SC DAILY [facility] Last Admin: 11/15/16 09:56 Dose: 40 mg Sodium Chloride (Sodium Chloride 0.9%) 1,000 mls @ 100 mls/hr IV .Q10H [facility] Magnesium Sulfate/Dextrose (Magnesium Sulfate 1 Gm/100 Ml D5w) 1 gm in 100 mls @ 300 mls/hr IVPB Q30M [facility] Stop: 11/15/16 16:34 Ketorolac Tromethamine (Toradol) 30 mg IVP Q6 [facility] Stop: 11/17/16 12:01 Pantoprazole Sodium (Protonix Inj) 40 mg IVP DAILY [facility] Last Admin: 11/15/16 09:56 Dose: 40 mg Results - Vital Signs Recent Vital Signs: Last Vital Signs Temp 98.4 F 11/15/16 08:50 Pulse 74 11/15/16 08:50 Resp 18 11/15/16 08:50 BP 162/102 H 11/15/16 14:56 Pulse Ox 91 L 11/15/16 00:30 - Labs Result Diagrams: 11/14/16 06:31 11/14/16 06:31
[2016-11-15] MEDS: Sodium Chloride 0.9% 1,000 ML IV SCH (16:13)
[2016-11-15] MEDS: Magnesium Sulfate 1 gm in D5W 1 GM/100 ML BAG IVPB SCH ×2 (16:13→17:10)
--- NOTE | 2016-11-15 16:56 | RAD ---
HISTORY: pain, SOB COMPARISON: Comparison is made to 05/29/2016. FINDINGS: LUNGS: Complete whiteout of the left lung. Findings could be due to complete collapse of the left lung. PLEURA: No significant pleural effusion identified, no pneumothorax apparent. CARDIOVASCULAR: Normal. OSSEOUS STRUCTURES: No significant abnormalities. VISUALIZED UPPER ABDOMEN: Normal. OTHER FINDINGS: None. IMPRESSION: Complete whiteout of the left lung. Further assessment by CT is suggested. No evidence of acute pathology at the right lung.
[2016-11-15] MEDS ORDERED: Lidocaine 2% Inj (20ml) ONE (18:33)
[2016-11-15] MEDS ORDERED: EPINEPHrine 1 mg/ml (1:1000) Inj ONE (18:35)
--- NOTE | 2016-11-15 18:35 | CP.PCM.CON ---
History of Present Illness - History of Present Illness History of Present Illness: reason for consult: atelectasis 55 year old male with PMH of CVA 6 years ago and Bailon's procedure in the past with reversal of Bailon's procedure on 11/12/2016, as per hcart there is also cocaine, marijuana abuse. He is a little anxious and his pain tolerance is low. He has been receiving lots of pain medications to the point that he has collapse of the left side of the lung. Past Patient History - Past Medical History & Family History Past Medical History?: Yes - Past Social History Smoking Status: Heavy Smoker > 10 Cigarettes Daily - CARDIAC Hx Cardiac Disorders: Yes Hx Angina: Yes - PULMONARY Hx Respiratory Disorders: No - NEUROLOGICAL Hx Neurological Disorder: Yes HX Cerebrovascular Accident: Yes (''4 years ago'') - HEENT Hx HEENT Problems: No - RENAL Hx Chronic Kidney Disease: No - ENDOCRINE/METABOLIC Hx Endocrine Disorders: No - HEMATOLOGICAL/ONCOLOGICAL Hx Blood Disorders: No - INTEGUMENTARY Hx Dermatological Problems: No - MUSCULOSKELETAL/RHEUMATOLOGICAL Hx Musculoskeletal Disorders: No Hx Falls: No - GASTROINTESTINAL Hx Gastrointestinal Disorders: No Other/Comment: H/O RUPTURED COLON DUE TO INFECTION. Pt with left abdomen colostomy - GENITOURINARY/GYNECOLOGICAL Hx Genitourinary Disorders: Yes (SEE COMMENT) - PSYCHIATRIC Hx Anxiety: Yes Hx Depression: Yes Hx Substance Use: Yes (marijuana ad tiago) - SURGICAL HISTORY Hx Surgeries: Yes (SEE COMMENT) Other/Comment: LEFT INGUINAL HERNIA SX - ANESTHESIA Hx Anesthesia: Yes Hx Anesthesia Reactions: No Hx Malignant Hyperthermia: No Meds Allergies/Adverse Reactions: Allergies Allergy/AdvReac Type Severity Reaction Status Date / Time No Known Allergies Allergy Verified 11/12/16 11:41 - Medications Medications: Current Medications Acetylcysteine (Acetylcysteine 20%) 4 ml INH RQ6 [facility] Albuterol/Ipratropium (Duoneb 3 Mg/0.5 Mg (3 Ml) Ud) 3 ml INH RQ6 [facility] Enoxaparin Sodium (Lovenox) 40 mg SC DAILY [facility] Last Admin: 11/15/16 09:56 Dose: 40 mg Sodium Chloride (Sodium Chloride 0.9%) 1,000 mls @ 100 mls/hr IV .Q10H [facility] Last Admin: 11/15/16 16:13 Dose: 100 mls/hr Ketorolac Tromethamine (Toradol) 30 mg IVP Q6 [facility] Stop: 11/17/16 12:01 Last Admin: 11/15/16 18:00 Dose: Not Given Pantoprazole Sodium (Protonix Inj) 40 mg IVP DAILY [facility] Last Admin: 11/15/16 09:56 Dose: 40 mg Results - Vital Signs Recent Vital Signs: Last Vital Signs Temp 97.8 F 11/15/16 16:00 Pulse 110 H 11/15/16 16:00 Resp 24 11/15/16 16:00 BP 162/102 H 11/15/16 14:56 Pulse Ox 98 11/15/16 16:00 - Labs Result Diagrams: 11/18/16 07:17 11/18/16 07:17 Labs: Laboratory Results - last 24 hr 11/15/16 15:45 Total Creatine Kinase 306 H CK-MB (Mass) 0.70 Troponin I, Quant < 0.0120
[2016-11-15] MEDS ORDERED: Propofol 10 mg/ml Inj (20 ML) ONE (18:47)
[2016-11-15] MEDS ORDERED: Succinylcholine Chloride 20 mg/ml Syr (5 ml) IV ONE (18:50)
[2016-11-15] MEDS: Acetylcysteine 20% Inhal Soln (4ml) INH SCH ×3 (19:00→19:55)
[2016-11-15] MEDS: Albuterol-Ipratrop 3 mg / 0.5 (3 ml) UD INH SCH (19:55)
--- NOTE | 2016-11-15 19:58 | OP ---
PROCEDURE DATE: 11/15/2016 PROCEDURE: Fiberoptic bronchoscopy with bronchoalveolar lavage. PREOPERATIVE DIAGNOSIS: Left lung collapse. POSTOPERATIVE DIAGNOSES: Large mucus plug obstructing the left main stem bronchus. DESCRIPTION OF PROCEDURE: Fiberoptic bronchoscopy procedure was done after obtaining consent from th e patient, explaining to the patient the risks and benefits, which he understood. The procedure was done under sedation and intubation by the anesthesiologist in the OR. The bronchoscope was passed th rough the ET tube into the trachea. The main santhosh was sharp. First, the bronchoscope passed on th e right side, which appeared normal. No mucus plug or any pathology noted. As the bronchoscope was pulled back and passed on the left side, thick white mucus plug seen obstructing the left main stem bronchus, which was suctioned out. Also, thick mucus secretions were noted obstructing the left upper and left lower lobe, which were suctioned out using saline and also started Mucomyst. No othe r abnormalities noted. No bleeding. The patient tolerated the procedure. Gen Huerta MD cc: [id number] TT: 11/15/2016 19:58:26 erickson
[2016-11-15 22:03] LABS: ABG ALLEN TEST POS; ARTERIAL BLOOD HGB O2 SAT 94.7 % (95.0-98.0); CARBOXYHEMOGLOBIN 1.6 % (0.5-1.5); DRAW SITE RBA; HHB 2.3 % (0.0-5.0); METHEMOGLOBIN 1.3 % (0.0-3.0)
[2016-11-16] MEDS: Acetylcysteine 20% Inhal Soln (4ml) INH SCH ×4 (01:35→20:09)
[2016-11-16] MEDS: Albuterol-Ipratrop 3 mg / 0.5 (3 ml) UD INH SCH ×4 (01:35→20:09)
[2016-11-16] MEDS: Sodium Chloride 0.9% 1,000 ML IV SCH (03:06)
[2016-11-16 06:32] LABS: BASO % 0.3 % (0.0-2.0); EOS # 0.1 K/uL (0.0-0.7); EOS % 0.9 % (0.0-4.0); HEMATOCRIT 43.2 % (35.0-51.0); LYMPH # 1.6 K/uL (1.0-4.3); LYMPH % 13.8 % (20.0-40.0); MEAN CELL VOLUME 90.2 fL (80.0-94.0); MEAN CORPUSCULAR HEMOGLOBIN 29.9 pg (27.0-31.0); MEAN CORPUSCULAR HGB CONC 33.2 g/dL (33.0-37.0); MEAN PLATELET VOLUME 11.1 fL (7.2-11.7); MONO # 0.6 K/uL (0.0-0.8); MONO % 5.1 % (0.0-10.0); RED CELL DISTRIBUTION WIDTH 13.3 % (11.5-14.5); WHITE BLOOD COUNT 11.9 K/uL (4.8-10.8)
[2016-11-16 06:40] LABS: CHLORIDE 100 mmol/L (98-107); SODIUM 134 mmol/L (132-148)
[2016-11-16 06:41] LABS: POTASSIUM 3.6 mmol/L (3.6-5.2)
[2016-11-16 06:43] LABS: ALB/GLOB RATIO 1.1 (1.0-2.1); ALKALINE PHOSPHATASE 43 U/L (38-126); AST/SGOT 17 U/L (17-59); BLOOD UREA NITROGEN 9 mg/dL (9-20); CARBON DIOXIDE 25 mmol/L (22-30); GFR AFRICAN-AMERICAN > 60; GLUCOSE,RANDOM 93 mg/dL (75-110)
[2016-11-16 06:44] LABS: ALT/SGPT 12 U/L (21-72); CALCIUM 7.5 mg/dl (8.6-10.4); MAGNESIUM 1.8 mg/dL (1.6-2.3)
--- NOTE | 2016-11-16 08:49 | RAD ---
HISTORY: left lung collapse COMPARISON: 11/15/2016 FINDINGS: LUNGS: Hazy opacity at left lung base. Probable residual atelectasis status post complete opacification left juan thorax on earlier examination of 11/15/2016. PLEURA: No significant pleural effusion identified, no pneumothorax apparent. CARDIOVASCULAR: Normal. OSSEOUS STRUCTURES: No significant abnormalities. VISUALIZED UPPER ABDOMEN: Normal. OTHER FINDINGS: None. IMPRESSION: Opacity at left base likely residual atelectasis status post complete opacification of left juan thorax on earlier examination of prior day.
[2016-11-16 08:51] LABS: ABG ALLEN TEST POS; ARTERIAL BLOOD HGB O2 SAT 93.6 % (95.0-98.0); CARBOXYHEMOGLOBIN 1.7 % (0.5-1.5); DRAW SITE RBA; HHB 3.9 % (0.0-5.0); METHEMOGLOBIN 0.8 % (0.0-3.0)
[2016-11-16] MEDS: Enoxaparin 40 mg Syringe SC SCH (09:13)
--- NOTE | 2016-11-16 09:31 | RAD ---
HISTORY: post bronch/ lung collapse COMPARISON: 11/15/2016 2:36 p.m. FINDINGS: LUNGS: Almost complete opacification of left juan thorax has resolved. No definite infiltrate. There is slight shift of heart and mediastinum towards the left side indicating some residual volume loss though the patient is slightly obliquely positioned. PLEURA: Probable very small right pleural effusion. No evidence of left pleural effusion. No pneumothorax. CARDIOVASCULAR: Normal. OSSEOUS STRUCTURES: No significant abnormalities. VISUALIZED UPPER ABDOMEN: Normal. OTHER FINDINGS: None. IMPRESSION: Resolved opacification left juan thorax with mild residual left-sided volume loss. Small right pleural effusion. No definite infiltrate.
--- NOTE | 2016-11-16 10:26 | CP.CCUPN ---
<Ari Orosco - Last Filed: 11/16/16 10:23> CCU Subjective - Physician Review Subjective (Free Text): 11/16/16 10:23 PGY-1 progress note Pt seen and examined at bedside. No acute events overnight. Pt states that he has not had any more episodes of significant sob. He admits to continued productive cough and pain with cough. Denies any fevers, chills, chest pain, nausea or vomiting. Critical Care Time Spent (in minutes): 35 CCU Objective - Vital Signs / Intake & Output Vital Signs (Last 4 hours): Vital Signs Temp Pulse Resp BP Pulse Ox 11/16/16 09:03 98.4 F 11/16/16 09:00 98 H 13 98 11/16/16 08:03 100 H 15 121/60 93 L 11/16/16 08:00 98 H 18 94 L 11/16/16 07:03 76 23 137/70 96 11/16/16 07:00 85 18 96 Intake and Output (Last 8hrs): Intake & Output 11/15/16 11/16/16 11/16/16 22:59 06:59 14:59 Intake Total 1000 800 500 Output Total 2175 300 150 Balance -1175 500 350 Intake: IV 100 Intake, IV Amount 900 800 500 Left Hand 900 800 500 Right Hand 0 Oral 0 0 0 Output: Drainage 5 Left Abdomen 5 Urine 2170 300 150 Urine, Voided 2170 300 150 Other: # Voids Urine, Voided 1 1 - Physical Exam Head: Positive for: Atraumatic, Normocephalic Pupils: Positive for: PERRL Extroacular Muscles: Positive for: EOMI Mouth: Positive for: Moist Mucous Membranes Respiratory/Chest: Positive for: Good Air Exchange, Rhonchi. Negative for: Respiratory Distress, Accessory Muscle Use Cardiovascular: Positive for: Normal S1, S2 Abdomen: Positive for: Tenderness, Normal Bowel Sounds. Negative for: Distention Upper Extremity: Positive for: NORMAL PULSES, Neurovascularly Intact Lower Extremity: Positive for: NORMAL PULSES, Neurovascularly Intact Neurological: Positive for: Speech Normal, Motor Func Grossly Intact Skin: Positive for: Warm, Dry Psychiatric: Positive for: Alert, Oriented x 3 - Medications Active Medications: Active Medications Generic Name Dose Route Start Last Admin Trade Name Freq PRN Reason Stop Dose Admin Acetylcysteine 4 ml 11/15/16 15:45 11/16/16 08:12 Acetylcysteine 20% INH 4 ml RQ6 LYNNE Administration Albuterol/Ipratropium 3 ml 11/15/16 20:00 11/16/16 08:12 Duoneb 3 Mg/0.5 Mg (3 Ml) Ud INH 3 ml RQ6 LYNNE Administration Enoxaparin Sodium 40 mg 11/14/16 10:00 11/16/16 09:13 Lovenox SC 40 mg DAILY LYNNE Administration Ketorolac Tromethamine 30 mg 11/15/16 18:00 11/16/16 06:04 Toradol IVP 11/17/16 12:01 30 mg Q6 LYNNE Administration Pantoprazole Sodium 40 mg 11/14/16 10:00 11/16/16 09:13 Protonix Inj IVP 40 mg DAILY LYNNE Administration - Patient Studies Lab Studies: Microbiology Studies 11/14/16 Unknown MRSA Culture - Final Nose MRSA NOT DETECTED 11/15/16 19:30 Fungal Culture - Preliminary Bronchial Washings Lab Studies 11/16/16 11/16/16 11/16/16 Range/Units 07:50 06:25 06:25 WBC 11.9 H (4.8-10.8) K/uL RBC 4.79 (4.40-5.90) Mil/uL Hgb 14.3 (12.0-18.0) g/dL Hct 43.2 (35.0-51.0) % MCV 90.2 (80.0-94.0) fL MCH 29.9 (27.0-31.0) pg MCHC 33.2 (33.0-37.0) g/dL RDW 13.3 (11.5-14.5) % Plt Count 148 (130-400) K/uL MPV 11.1 (7.2-11.7) fL Neut % (Auto) 79.9 H (50.0-75.0) % Lymph % (Auto) 13.8 L (20.0-40.0) % [place] % (Auto) 5.1 (0.0-10.0) % Eos % (Auto) 0.9 (0.0-4.0) % Baso % (Auto) 0.3 (0.0-2.0) % Neut # 9.5 H (1.8-7.0) K/uL Lymph # 1.6 (1.0-4.3) K/uL [place] # 0.6 (0.0-0.8) K/uL Eos # 0.1 (0.0-0.7) K/uL Baso # 0.0 (0.0-0.2) K/uL Puncture Site Rba pCO2 37 (35-45) mm/Hg pO2 67 L (80-100) mm/Hg HCO3 25.7 (21-28) mmol/L ABG pH 7.44 (7.35-7.45) ABG Total CO2 26.2 (22-28) mmol/L ABG O2 Saturation 96.0 (95-98) % ABG Base Excess 1.1 (-2.0-3.0) mmol/L ABG Hemoglobin 14.0 (11.7-17.4) g/dL ABG Carboxyhemoglobin 1.7 H (0.5-1.5) % POC ABG HHb (Measured) 3.9 (0.0-5.0) % ABG Methemoglobin 0.8 (0.0-3.0) % Riky Test Pos A-a O2 Difference 115.0 mm/Hg Respiratory Index 1.7 Hgb O2 Saturation 93.6 L (95.0-98.0) % Liter Flow 3.0 FiO2 32.0 % Sodium 134 (132-148) mmol/L Potassium 3.6 (3.6-5.2) mmol/L Chloride 100 (98-107) mmol/L Carbon Dioxide 25 (22-30) mmol/L Anion Gap 13 (10-20) BUN 9 (9-20) mg/dL Creatinine 0.7 L (0.8-1.5) MG/DL Est GFR ( Amer) > 60 Est GFR (Non-Af Amer) > 60 Random Glucose 93 (75-110) mg/dL Calcium 7.5 L (8.6-10.4) mg/dl Magnesium 1.8 (1.6-2.3) mg/dL Total Bilirubin 1.0 (0.2-1.3) mg/dL AST 17 (17-59) U/L ALT 12 L D (21-72) U/L Alkaline Phosphatase 43 (38-126) U/L Total Creatine Kinase (55-170) U/L CK-MB (Mass) (0.0-3.38) ng/mL Troponin I, Quant (0.00-0.120) ng/mL Total Protein 6.0 L (6.3-8.3) g/dL Albumin 3.1 L (3.5-5.0) g/dL Globulin 2.8 (2.2-3.9) gm/dL Albumin/Globulin Ratio 1.1 (1.0-2.1) 11/15/16 11/15/16 Range/Units 21:55 15:45 WBC (4.8-10.8) K/uL RBC (4.40-5.90) Mil/uL Hgb (12.0-18.0) g/dL Hct (35.0-51.0) % MCV (80.0-94.0) fL MCH (27.0-31.0) pg MCHC (33.0-37.0) g/dL RDW (11.5-14.5) % Plt Count (130-400) K/uL MPV (7.2-11.7) fL Neut % (Auto) (50.0-75.0) % Lymph % (Auto) (20.0-40.0) % [place] % (Auto) (0.0-10.0) % Eos % (Auto) (0.0-4.0) % Baso % (Auto) (0.0-2.0) % Neut # (1.8-7.0) K/uL Lymph # (1.0-4.3) K/uL [place] # (0.0-0.8) K/uL Eos # (0.0-0.7) K/uL Baso # (0.0-0.2) K/uL Puncture Site Rba pCO2 39 (35-45) mm/Hg pO2 80 (80-100) mm/Hg HCO3 27.2 (21-28) mmol/L ABG pH 7.45 (7.35-7.45) ABG Total CO2 28.3 H (22-28) mmol/L ABG O2 Saturation 97.6 (95-98) % ABG Base Excess 3.0 (-2.0-3.0) mmol/L ABG Hemoglobin 15.2 (11.7-17.4) g/dL ABG Carboxyhemoglobin 1.6 H (0.5-1.5) % POC ABG HHb (Measured) 2.3 (0.0-5.0) % ABG Methemoglobin 1.3 (0.0-3.0) % Riky Test Pos A-a O2 Difference 228.0 mm/Hg Respiratory Index 2.9 Hgb O2 Saturation 94.7 L (95.0-98.0) % Liter Flow 12.0 FiO2 50.0 % Sodium (132-148) mmol/L Potassium (3.6-5.2) mmol/L Chloride (98-107) mmol/L Carbon Dioxide (22-30) mmol/L Anion Gap (10-20) BUN (9-20) mg/dL Creatinine (0.8-1.5) MG/DL Est GFR ( Amer) Est GFR (Non-Af Amer) Random Glucose (75-110) mg/dL Calcium (8.6-10.4) mg/dl Magnesium (1.6-2.3) mg/dL Total Bilirubin (0.2-1.3) mg/dL AST (17-59) U/L ALT (21-72) U/L Alkaline Phosphatase (38-126) U/L Total Creatine Kinase 306 H (55-170) U/L CK-MB (Mass) 0.70 (0.0-3.38) ng/mL Troponin I, Quant < 0.0120 (0.00-0.120) ng/mL Total Protein (6.3-8.3) g/dL Albumin (3.5-5.0) g/dL Globulin (2.2-3.9) gm/dL Albumin/Globulin Ratio (1.0-2.1) Laboratory Results - last 24 hr 11/15/16 11/15/16 11/16/16 15:45 21:55 06:25 WBC RBC Hgb Hct MCV MCH MCHC RDW Plt Count MPV Neut % (Auto) Lymph % (Auto) [place] % (Auto) Eos % (Auto) Baso % (Auto) Neut # Lymph # [place] # Eos # Baso # Puncture Site Rba pCO2 39 pO2 80 HCO3 27.2 ABG pH 7.45 ABG Total CO2 28.3 H ABG O2 Saturation 97.6 ABG Base Excess 3.0 ABG Hemoglobin 15.2 ABG Carboxyhemoglobin 1.6 H POC ABG HHb (Measured) 2.3 ABG Methemoglobin 1.3 Riky Test Pos A-a O2 Difference 228.0 Respiratory Index 2.9 Hgb O2 Saturation 94.7 L Liter Flow 12.0 FiO2 50.0 Sodium 134 Potassium 3.6 Chloride 100 Carbon Dioxide 25 Anion Gap 13 BUN 9 Creatinine 0.7 L Est GFR ( Amer) > 60 Est GFR (Non-Af Amer) > 60 Random Glucose 93 Calcium 7.5 L Magnesium 1.8 Total Bilirubin 1.0 AST 17 ALT 12 L D Alkaline Phosphatase 43 Total Creatine Kinase 306 H CK-MB (Mass) 0.70 Troponin I, Quant < 0.0120 Total Protein 6.0 L Albumin 3.1 L Globulin 2.8 Albumin/Globulin Ratio 1.1 11/16/16 11/16/16 06:25 07:50 WBC 11.9 H RBC 4.79 Hgb 14.3 Hct 43.2 MCV 90.2 MCH 29.9 MCHC 33.2 RDW 13.3 Plt Count 148 MPV 11.1 Neut % (Auto) 79.9 H Lymph % (Auto) 13.8 L [place] % (Auto) 5.1 Eos % (Auto) 0.9 Baso % (Auto) 0.3 Neut # 9.5 H Lymph # 1.6 [place] # 0.6 Eos # 0.1 Baso # 0.0 Puncture Site Rba pCO2 37 pO2 67 L HCO3 25.7 ABG pH 7.44 ABG Total CO2 26.2 ABG O2 Saturation 96.0 ABG Base Excess 1.1 ABG Hemoglobin 14.0 ABG Carboxyhemoglobin 1.7 H POC ABG HHb (Measured) 3.9 ABG Methemoglobin 0.8 Riky Test Pos A-a O2 Difference 115.0 Respiratory Index 1.7 Hgb O2 Saturation 93.6 L Liter Flow 3.0 FiO2 32.0 Sodium Potassium Chloride Carbon Dioxide Anion Gap BUN Creatinine Est GFR ( Amer) Est GFR (Non-Af Amer) Random Glucose Calcium Magnesium Total Bilirubin AST ALT Alkaline Phosphatase Total Creatine Kinase CK-MB (Mass) Troponin I, Quant Total Protein Albumin Globulin Albumin/Globulin Ratio EKG/Cardiology Studies: Cardiology / EKG Studies 11/15/16 14:30 ELECTROCARDIOGRAM Stat Comment: Mode Of Transportation: Reason For Exam: chest pain Isolation: Contact Review of Systems - Review of Systems All systems: reviewed and no additional remarkable complaints except (where noted in HPI) Critical Care Progress Note - Nutrition Nutrition: Nutrition Category Date Time Status Liquid Diet [DIET] Diets 11/16/16 Lunch Active Assessment/Plan - Assessment and Plan (Free Text) Assessment: 55 yo M s/p reversal of Bailon's procedure POD#3 that had mucous plugging with respiratory distress s/p bronchoscopy with bronchoalveolar lavage. Plan: Neuro: AAO x 3. No acute issues Pulm: s/p bronchoscopy with bronchoalveolar lavage, cultures pending. Saturating well in no respiratory distress. Continue incentive spirometry, duonebs and mucomyst. Likely transfer to telemetry CV: No acute issues. Denies any chest pain or palpitations GI: s/p Hartmans reversal. Denies nausea/vomiting. Will start liquid diet, advance as tolerated Renal: No acute issues, good urine output. ID: Afebrile, no abx indicated at this time. Will continue to monitor Heme: No acute issues Endo: No acute issues DVT ppx - lovenox GI ppx - protonix Pt status - full code <ConradYocasta - Last Filed: 11/16/16 18:43> CCU Objective - Vital Signs / Intake & Output Vital Signs (Last 4 hours): Vital Signs Temp Pulse Resp BP Pulse Ox 11/16/16 17:02 88 13 114/72 11/16/16 17:00 87 22 11/16/16 16:00 98.3 F 91 H 16 94 L 11/16/16 15:05 75 29 H 92/66 L 95 11/16/16 15:00 90 29 H Intake and Output (Last 8hrs): Intake & Output 11/16/16 11/16/16 11/16/16 06:59 14:59 22:59 Intake Total 800 850 50 Output Total 300 250 175 Balance 500 600 -125 Intake: Intake, IV Amount 800 500 Left Hand 800 500 Right Hand 0 Oral 0 350 50 Output: Urine 300 250 175 Urine, Voided 300 250 175 Other: # Voids Urine, Voided 0 0 - Medications Active Medications: Active Medications Generic Name Dose Route Start Last Admin Trade Name Freq PRN Reason Stop Dose Admin Acetylcysteine 4 ml 11/15/16 15:45 11/16/16 13:08 Acetylcysteine 20% INH 4 ml RQ6 LYNNE Administration Albuterol/Ipratropium 3 ml 11/15/16 20:00 11/16/16 13:08 Duoneb 3 Mg/0.5 Mg (3 Ml) Ud INH 3 ml RQ6 LYNNE Administration Enoxaparin Sodium 40 mg 11/14/16 10:00 11/16/16 09:13 Lovenox SC 40 mg DAILY LYNNE Administration Ketorolac Tromethamine 30 mg 11/15/16 18:00 11/16/16 17:40 Toradol IVP 11/17/16 12:01 30 mg Q6 LYNNE Administration Pantoprazole Sodium 40 mg 11/14/16 10:00 11/16/16 09:13 Protonix Inj IVP 40 mg DAILY LYNNE Administration - Patient Studies Lab Studies: Microbiology Studies 11/14/16 Unknown MRSA Culture - Final Nose MRSA NOT DETECTED 11/15/16 19:30 Fungal Culture - Preliminary Bronchial Washings Lab Studies 11/16/16 11/16/16 11/16/16 Range/Units 07:50 06:25 06:25 WBC 11.9 H (4.8-10.8) K/uL RBC 4.79 (4.40-5.90) Mil/uL Hgb 14.3 (12.0-18.0) g/dL Hct 43.2 (35.0-51.0) % MCV 90.2 (80.0-94.0) fL MCH 29.9 (27.0-31.0) pg MCHC 33.2 (33.0-37.0) g/dL RDW 13.3 (11.5-14.5) % Plt Count 148 (130-400) K/uL MPV 11.1 (7.2-11.7) fL Neut % (Auto) 79.9 H (50.0-75.0) % Lymph % (Auto) 13.8 L (20.0-40.0) % [place] % (Auto) 5.1 (0.0-10.0) % Eos % (Auto) 0.9 (0.0-4.0) % Baso % (Auto) 0.3 (0.0-2.0) % Neut # 9.5 H (1.8-7.0) K/uL Lymph # 1.6 (1.0-4.3) K/uL [place] # 0.6 (0.0-0.8) K/uL Eos # 0.1 (0.0-0.7) K/uL Baso # 0.0 (0.0-0.2) K/uL Puncture Site Rba pCO2 37 (35-45) mm/Hg pO2 67 L (80-100) mm/Hg HCO3 25.7 (21-28) mmol/L ABG pH 7.44 (7.35-7.45) ABG Total CO2 26.2 (22-28) mmol/L ABG O2 Saturation 96.0 (95-98) % ABG Base Excess 1.1 (-2.0-3.0) mmol/L ABG Hemoglobin 14.0 (11.7-17.4) g/dL ABG Carboxyhemoglobin 1.7 H (0.5-1.5) % POC ABG HHb (Measured) 3.9 (0.0-5.0) % ABG Methemoglobin 0.8 (0.0-3.0) % Riky Test Pos A-a O2 Difference 115.0 mm/Hg Respiratory Index 1.7 Hgb O2 Saturation 93.6 L (95.0-98.0) % Liter Flow 3.0 FiO2 32.0 % Sodium 134 (132-148) mmol/L Potassium 3.6 (3.6-5.2) mmol/L Chloride 100 (98-107) mmol/L Carbon Dioxide 25 (22-30) mmol/L Anion Gap 13 (10-20) BUN 9 (9-20) mg/dL Creatinine 0.7 L (0.8-1.5) MG/DL Est GFR ( Amer) > 60 Est GFR (Non-Af Amer) > 60 Random Glucose 93 (75-110) mg/dL Calcium 7.5 L (8.6-10.4) mg/dl Magnesium 1.8 (1.6-2.3) mg/dL Total Bilirubin 1.0 (0.2-1.3) mg/dL AST 17 (17-59) U/L ALT 12 L D (21-72) U/L Alkaline Phosphatase 43 (38-126) U/L Total Protein 6.0 L (6.3-8.3) g/dL Albumin 3.1 L (3.5-5.0) g/dL Globulin 2.8 (2.2-3.9) gm/dL Albumin/Globulin Ratio 1.1 (1.0-2.1) / Range/Units 21:55 WBC (4.8-10.8) K/uL RBC (4.40-5.90) Mil/uL Hgb (12.0-18.0) g/dL Hct (35.0-51.0) % MCV (80.0-94.0) fL MCH (27.0-31.0) pg MCHC (33.0-37.0) g/dL RDW (11.5-14.5) % Plt Count (130-400) K/uL MPV (7.2-11.7) fL Neut % (Auto) (50.0-75.0) % Lymph % (Auto) (20.0-40.0) % [place] % (Auto) (0.0-10.0) % Eos % (Auto) (0.0-4.0) % Baso % (Auto) (0.0-2.0) % Neut # (1.8-7.0) K/uL Lymph # (1.0-4.3) K/uL [place] # (0.0-0.8) K/uL Eos # (0.0-0.7) K/uL Baso # (0.0-0.2) K/uL Puncture Site Rba pCO2 39 (35-45) mm/Hg pO2 80 (80-100) mm/Hg HCO3 27.2 (21-28) mmol/L ABG pH 7.45 (7.35-7.45) ABG Total CO2 28.3 H (22-28) mmol/L ABG O2 Saturation 97.6 (95-98) % ABG Base Excess 3.0 (-2.0-3.0) mmol/L ABG Hemoglobin 15.2 (11.7-17.4) g/dL ABG Carboxyhemoglobin 1.6 H (0.5-1.5) % POC ABG HHb (Measured) 2.3 (0.0-5.0) % ABG Methemoglobin 1.3 (0.0-3.0) % Riky Test Pos A-a O2 Difference 228.0 mm/Hg Respiratory Index 2.9 Hgb O2 Saturation 94.7 L (95.0-98.0) % Liter Flow 12.0 FiO2 50.0 % Sodium (132-148) mmol/L Potassium (3.6-5.2) mmol/L Chloride (98-107) mmol/L Carbon Dioxide (22-30) mmol/L Anion Gap (10-20) BUN (9-20) mg/dL Creatinine (0.8-1.5) MG/DL Est GFR ( Amer) Est GFR (Non-Af Amer) Random Glucose (75-110) mg/dL Calcium (8.6-10.4) mg/dl Magnesium (1.6-2.3) mg/dL Total Bilirubin (0.2-1.3) mg/dL AST (17-59) U/L ALT (21-72) U/L Alkaline Phosphatase (38-126) U/L Total Protein (6.3-8.3) g/dL Albumin (3.5-5.0) g/dL Globulin (2.2-3.9) gm/dL Albumin/Globulin Ratio (1.0-2.1) Laboratory Results - last 24 hr 11/15/16 11/16/16 11/16/16 21:55 06:25 06:25 WBC 11.9 H RBC 4.79 Hgb 14.3 Hct 43.2 MCV 90.2 MCH 29.9 MCHC 33.2 RDW 13.3 Plt Count 148 MPV 11.1 Neut % (Auto) 79.9 H Lymph % (Auto) 13.8 L [place] % (Auto) 5.1 Eos % (Auto) 0.9 Baso % (Auto) 0.3 Neut # 9.5 H Lymph # 1.6 [place] # 0.6 Eos # 0.1 Baso # 0.0 Puncture Site Rba pCO2 39 pO2 80 HCO3 27.2 ABG pH 7.45 ABG Total CO2 28.3 H ABG O2 Saturation 97.6 ABG Base Excess 3.0 ABG Hemoglobin 15.2 ABG Carboxyhemoglobin 1.6 H POC ABG HHb (Measured) 2.3 ABG Methemoglobin 1.3 Riky Test Pos A-a O2 Difference 228.0 Respiratory Index 2.9 Hgb O2 Saturation 94.7 L Liter Flow 12.0 FiO2 50.0 Sodium 134 Potassium 3.6 Chloride 100 Carbon Dioxide 25 Anion Gap 13 BUN 9 Creatinine 0.7 L Est GFR ( Amer) > 60 Est GFR (Non-Af Amer) > 60 Random Glucose 93 Calcium 7.5 L Magnesium 1.8 Total Bilirubin 1.0 AST 17 ALT 12 L D Alkaline Phosphatase 43 Total Protein 6.0 L Albumin 3.1 L Globulin 2.8 Albumin/Globulin Ratio 1.1 11/16/16 07:50 WBC RBC Hgb Hct MCV MCH MCHC RDW Plt Count MPV Neut % (Auto) Lymph % (Auto) [place] % (Auto) Eos % (Auto) Baso % (Auto) Neut # Lymph # [place] # Eos # Baso # Puncture Site Rba pCO2 37 pO2 67 L HCO3 25.7 ABG pH 7.44 ABG Total CO2 26.2 ABG O2 Saturation 96.0 ABG Base Excess 1.1 ABG Hemoglobin 14.0 ABG Carboxyhemoglobin 1.7 H POC ABG HHb (Measured) 3.9 ABG Methemoglobin 0.8 Riky Test Pos A-a O2 Difference 115.0 Respiratory Index 1.7 Hgb O2 Saturation 93.6 L Liter Flow 3.0 FiO2 32.0 Sodium Potassium Chloride Carbon Dioxide Anion Gap BUN Creatinine Est GFR ( Amer) Est GFR (Non-Af Amer) Random Glucose Calcium Magnesium Total Bilirubin AST ALT Alkaline Phosphatase Total Protein Albumin Globulin Albumin/Globulin Ratio Critical Care Progress Note - Nutrition Nutrition: Nutrition Category Date Time Status Liquid Diet [DIET] Diets 11/16/16 Lunch Active Attending/Attestation - Attestation I have personally seen and examined this patient.: Yes I have fully participated in the care of the patient.: Yes I have reviewed all pertinent clinical information: Yes Notes (Text): 11/16/16 18:43 doing well
--- NOTE | 2016-11-16 11:41 | CARD ---
APPROVED REPORT EKG Measurement Heart [id number] <Conclusion> Sinus bradycardia Otherwise normal ECG
--- NOTE | 2016-11-16 17:32 | CP.PCM.PN ---
Subjective - Date & Time of Evaluation Date of Evaluation: 11/16/16 Time of Evaluation: 09:50 - Subjective Subjective: patient seen and examined. Sitting comfortably in no acute distress Saturation 100% denies shortness of breath, denies cough Status post bronchoscopy with bronchoalveolar lavage and complete reexpansion of left lung Continue nebulizer treatment and antibiotics Stable from pulmonary standpoint Objective - Vital Signs/Intake and Output Vital Signs (last 24 hours): Temp Pulse Resp BP Pulse Ox 98.3 F 88 13 114/72 94 L 11/16/16 16:00 11/16/16 17:02 11/16/16 17:02 11/16/16 17:02 11/16/16 16:00 Intake and Output: 11/16/16 11/16/16 06:59 18:59 Intake Total 1200 900 Output Total 700 425 Balance 500 475 - Medications Medications: Current Medications Acetylcysteine (Acetylcysteine 20%) 4 ml INH RQ6 [facility] Last Admin: 11/16/16 13:08 Dose: 4 ml Albuterol/Ipratropium (Duoneb 3 Mg/0.5 Mg (3 Ml) Ud) 3 ml INH RQ6 [facility] Last Admin: 11/16/16 13:08 Dose: 3 ml Enoxaparin Sodium (Lovenox) 40 mg SC DAILY [facility] Last Admin: 11/16/16 09:13 Dose: 40 mg Ketorolac Tromethamine (Toradol) 30 mg IVP Q6 [facility] Stop: 11/17/16 12:01 Last Admin: 11/16/16 12:07 Dose: 30 mg Pantoprazole Sodium (Protonix Inj) 40 mg IVP DAILY [facility] Last Admin: 11/16/16 09:13 Dose: 40 mg - Labs Labs: 11/16/16 06:25 11/16/16 06:25 PT 10.7 SECONDS (9.7-12.2) 11/12/16 12:15 INR 1.0 11/12/16 12:15 APTT 31 SECONDS (21-34) 11/12/16 12:15
[2016-11-17] MEDS: Acetylcysteine 20% Inhal Soln (4ml) INH SCH ×4 (02:36→20:20)
[2016-11-17] MEDS: Albuterol-Ipratrop 3 mg / 0.5 (3 ml) UD INH SCH ×4 (02:36→20:21)
--- NOTE | 2016-11-17 06:59 | CP.PCM.PN ---
<Felipa Guerin - Last Filed: 11/17/16 11:46> Subjective - Date & Time of Evaluation Date of Evaluation: 11/17/16 Time of Evaluation: 07:00 - Subjective Subjective: PGY1 Medicine note for Dr. Lema Pt seen and examined at bedside. POD #4 s/p ostomy bag reversal. Pt reported 1 episode of shortness of breath overnight, which resolved with nebulizer treatment. Patient denies cough. Patient is status post bronchoscopy with bronchoalveolar lavage and complete reexpansion of left lung. Today, he is calm and comfortable. He states he is having some abdominal pain at the surgical site , but that his pain is well controlled. Manjinder drain in place ~20cc serosanguinous fluid this AM. He states that his breathing has improved but there are still times when it is difficult for him to catch his breath. Pt had one BM Wednesday with dark stool. Pt denies headache, dizziness, chest pain, palpiatations, nausea, vomiting, bowel/bladder complaints or leg swelling. He has been ambulating and has been using the incentive spirometer. Patient is tolerating liquid diet. Objective - Vital Signs/Intake and Output Vital Signs (last 24 hours): Temp Pulse Resp BP Pulse Ox 98.7 F 74 20 115/69 96 11/17/16 00:00 11/17/16 00:00 11/17/16 00:00 11/17/16 00:00 11/17/16 00:00 Intake and Output: 11/16/16 11/17/16 18:59 06:59 Intake Total 900 440 Output Total 425 35 Balance 475 405 - Medications Medications: Current Medications Acetylcysteine (Acetylcysteine 20%) 4 ml INH RQ6 [facility] Last Admin: 11/17/16 02:36 Dose: Not Given Albuterol/Ipratropium (Duoneb 3 Mg/0.5 Mg (3 Ml) Ud) 3 ml INH RQ6 [facility] Last Admin: 11/17/16 02:36 Dose: Not Given Enoxaparin Sodium (Lovenox) 40 mg SC DAILY [facility] Last Admin: 11/16/16 09:13 Dose: 40 mg Ketorolac Tromethamine (Toradol) 30 mg IVP Q6 [facility] Stop: 11/17/16 12:01 Last Admin: 11/17/16 06:00 Dose: 30 mg Pantoprazole Sodium (Protonix Inj) 40 mg IVP DAILY [facility] Last Admin: 11/16/16 09:13 Dose: 40 mg - Labs Labs: 11/16/16 06:25 11/16/16 06:25 PT 10.7 SECONDS (9.7-12.2) 11/12/16 12:15 INR 1.0 11/12/16 12:15 APTT 31 SECONDS (21-34) 11/12/16 12:15 - Constitutional Appears: Non-toxic, No Acute Distress - Head Exam Head Exam: NORMAL INSPECTION - Eye Exam Eye Exam: Normal appearance. absent: Conjunctival injection, Scleral icterus - ENT Exam ENT Exam: Mucous Membranes Moist - Neck Exam Neck Exam: Normal Inspection. absent: Tenderness Assessment and Plan - Assessment and Plan (Free Text) Assessment: 55 y/o male with a PMHx of cocaine and marijuana abuse and CVA (6 years ago) who presents to the ED after he was sent by for a reversal of a colostomy bag Plan: Reversal of Ostomy -General surgery, Dr. Shannon primary. Management per attending. -POD #4 s/p ostomy reversal [Kentrell reversal] -Manjinder drain ~20cc serosanguinous fluid -Toradol 30mg ivp q6 -Encourage incentive spirometer use -Encourage OOB Left lung collapse -s/p bronchoscopy with bronchoalveolar lavage and complete reexpansion of left lung POD#1 -Acetylcysteine 20% 4ml inh q6 monika -Duoneb 3ml INH q6 monika -Spiriva 18mcg inh q24 -Advair 250/50 1puff inh q12 -f/u bronch cultures -f/u CXR PA/lat -f/u CXR L lateral decubitus -stable as per Pulm standpoint Prophlyactic Measures: -DVT: SCDs -GI: Protonix 40 mg IV daily -DVT: Lovenox 40mg sc daily -Full Liquid diet -PT -IS use Discussed with Dr. Torey Guerin PGY1 <Geraldo Lema Jr. - Last Filed: 11/21/16 09:39> Objective - Vital Signs/Intake and Output Vital Signs (last 24 hours): Temp Pulse Resp BP Pulse Ox 98.6 F 87 20 125/76 95 11/18/16 08:57 11/18/16 08:57 11/18/16 08:57 11/18/16 08:57 11/18/16 08:57 - Labs Labs: 11/18/16 07:17 11/18/16 07:17 PT 10.7 SECONDS (9.7-12.2) 11/12/16 12:15 INR 1.0 11/12/16 12:15 APTT 31 SECONDS (21-34) 11/12/16 12:15 Attending/Attestation - Attestation I have personally seen and examined this patient.: Yes I have fully participated in the care of the patient.: Yes I have reviewed all pertinent clinical information, including history, physical exam and plan: Yes Notes (Text): 11/21/16 09:39 Agree with resident note and plan of care
[2016-11-17 08:57] LABS: BASO % 0.8 % (0.0-2.0); EOS # 0.2 K/uL (0.0-0.7); EOS % 3.7 % (0.0-4.0); HEMATOCRIT 41.8 % (35.0-51.0); LYMPH # 1.2 K/uL (1.0-4.3); LYMPH % 21.3 % (20.0-40.0); MEAN CELL VOLUME 89.6 fL (80.0-94.0); MEAN CORPUSCULAR HEMOGLOBIN 29.8 pg (27.0-31.0); MEAN CORPUSCULAR HGB CONC 33.3 g/dL (33.0-37.0); MONO # 0.5 K/uL (0.0-0.8); MONO % 8.1 % (0.0-10.0); WHITE BLOOD COUNT 5.6 K/uL (4.8-10.8)
[2016-11-17 09:00] LABS: CHLORIDE 101 mmol/L (98-107)
[2016-11-17 09:01] LABS: POTASSIUM 3.4 mmol/L (3.6-5.2); SODIUM 139 mmol/L (132-148)
[2016-11-17 09:03] LABS: ALKALINE PHOSPHATASE 46 U/L (38-126); ALT/SGPT 19 U/L (21-72); AST/SGOT 18 U/L (17-59); BLOOD UREA NITROGEN 15 mg/dL (9-20); CARBON DIOXIDE 27 mmol/L (22-30); GFR AFRICAN-AMERICAN > 60; GLUCOSE,RANDOM 106 mg/dL (75-110); TOTAL PROTEIN 6.6 g/dL (6.3-8.3)
[2016-11-17 09:04] LABS: CALCIUM 8.5 mg/dl (8.6-10.4); MAGNESIUM 1.9 mg/dL (1.6-2.3); PHOSPHOROUS 3.8 mg/dL (2.5-4.5)
[2016-11-17] MEDS: Enoxaparin 40 mg Syringe SC SCH (09:20)
--- NOTE | 2016-11-17 09:44 | CARD ---
APPROVED REPORT EKG Measurement Heart [id number] SC 130P55 [id number] <Conclusion> Normal sinus rhythm with sinus arrhythmia Abnormal ECG
--- NOTE | 2016-11-17 12:40 | RAD ---
Chest x-ray three views History: Shortness of breath. Comparison: None available. Findings: Mild venous congestion. Left hilar prominence. Atelectatic changes at both lung bases. Nodular consolidative changes at the left lung base with more linear consolidative changes at the right lung base. Right hilar prominence. Small left pleural effusion. Tortuous aorta. Degenerative changes the spine with paravertebral osteophytes. Distended loops of bowel within the upper abdomen. Impression: Mild venous congestion. Left hilar prominence. Atelectatic changes at both lung bases. Nodular consolidative changes at the left lung base with more linear consolidative changes at the right lung base. Right hilar prominence. Small left pleural effusion. Tortuous aorta. Degenerative changes the spine with paravertebral osteophytes. Distended loops of bowel within the upper abdomen.
[2016-11-17] MEDS: Fluticasone-Salmeterol 250-50mcg Diskus INH SCH (20:21)
[2016-11-18] MEDS: Albuterol-Ipratrop 3 mg / 0.5 (3 ml) UD INH SCH ×2 (03:47→07:25)
[2016-11-18] MEDS: Acetylcysteine 20% Inhal Soln (4ml) INH SCH ×2 (03:47→07:25)
[2016-11-18 04:37] VITALS: RESP 20
--- NOTE | 2016-11-18 07:06 | CP.PCM.PN ---
Objective - Vital Signs/Intake and Output Vital Signs (last 24 hours): Temp Pulse Resp BP Pulse Ox 98.8 F 69 20 115/68 100 11/17/16 23:15 11/17/16 23:15 11/17/16 23:15 11/17/16 23:15 11/17/16 23:15 Intake and Output: 11/18/16 11/18/16 06:59 18:59 Output Total 5 Balance -5 - Medications Medications: Current Medications Acetylcysteine (Acetylcysteine 20%) 4 ml INH RQ6 [facility] Last Admin: 11/18/16 03:47 Dose: 4 ml Albuterol/Ipratropium (Duoneb 3 Mg/0.5 Mg (3 Ml) Ud) 3 ml INH RQ6 [facility] Last Admin: 11/18/16 03:47 Dose: 3 ml Enoxaparin Sodium (Lovenox) 40 mg SC DAILY [facility] Last Admin: 11/17/16 09:20 Dose: 40 mg Ketorolac Tromethamine (Toradol) 30 mg IVP Q6 PRN PRN Reason: Pain, moderate (4-7) Last Admin: 11/18/16 06:05 Dose: 30 mg Pantoprazole Sodium (Protonix Inj) 40 mg IVP DAILY [facility] Last Admin: 11/17/16 09:20 Dose: 40 mg Fluticasone/Salmeterol (Advair Diskus 250/50) 1 puff INH RQ12 [facility] Last Admin: 11/17/16 20:21 Dose: 1 puff Tiotropium [place] (Spiriva) 18 mcg INH RQ24 [facility] - Labs Labs: 11/17/16 08:42 11/17/16 08:42 PT 10.7 SECONDS (9.7-12.2) 11/12/16 12:15 INR 1.0 11/12/16 12:15 APTT 31 SECONDS (21-34) 11/12/16 12:15
[2016-11-18] MEDS: Fluticasone-Salmeterol 250-50mcg Diskus INH SCH (07:24)
[2016-11-18 07:36] LABS: BASO % 0.6 % (0.0-2.0); EOS # 0.3 K/uL (0.0-0.7); EOS % 5.6 % (0.0-4.0); HEMATOCRIT 36.2 % (35.0-51.0); LYMPH % 20.8 % (20.0-40.0); MEAN CELL VOLUME 89.8 fL (80.0-94.0); MEAN CORPUSCULAR HEMOGLOBIN 29.8 pg (27.0-31.0); MEAN CORPUSCULAR HGB CONC 33.2 g/dL (33.0-37.0); MEAN PLATELET VOLUME 10.6 fL (7.2-11.7); MONO # 0.5 K/uL (0.0-0.8); MONO % 9.8 % (0.0-10.0); RED CELL DISTRIBUTION WIDTH 13.2 % (11.5-14.5); WHITE BLOOD COUNT 4.6 K/uL (4.8-10.8)
[2016-11-18 07:56] LABS: CHLORIDE 104 mmol/L (98-107); POTASSIUM 3.4 mmol/L (3.6-5.2); SODIUM 139 mmol/L (132-148)
[2016-11-18 07:58] LABS: CARBON DIOXIDE 27 mmol/L (22-30); GFR AFRICAN-AMERICAN > 60
[2016-11-18 07:59] LABS: ALB/GLOB RATIO 1.1 (1.0-2.1); ALKALINE PHOSPHATASE 32 U/L (38-126); ALT/SGPT 29 U/L (21-72); AST/SGOT 15 U/L (17-59); BILIRUBIN,TOTAL 0.7 mg/dL (0.2-1.3); BLOOD UREA NITROGEN 13 mg/dL (9-20); CALCIUM 7.7 mg/dl (8.6-10.4); GLUCOSE,RANDOM 101 mg/dL (75-110); PHOSPHOROUS 4.5 mg/dL (2.5-4.5); TOTAL PROTEIN 5.7 g/dL (6.3-8.3)
[2016-11-18 08:00] LABS: MAGNESIUM 1.9 mg/dL (1.6-2.3)
[2016-11-18] MEDS ORDERED: Tiotropium 18 mcg Cap For Inhalation INH SCH (08:00)
[2016-11-18 08:58] VITALS: BP 125/76; PULSE 87; TEMP 98.6; O2SAT 95
[2016-11-18] MEDS ORDERED: Potassium Chloride 20 mEq ER Tab PO ONE (09:50)
[2016-11-18] MEDS: Enoxaparin 40 mg Syringe SC SCH (09:50)
--- NOTE | 2016-11-18 14:03 | CP.PCM.DIS ---
Provider - Provider Date of Admission: 11/12/16 11:51 Attending physician: Geraldo Lema Jr, MD Primary care physician: Dr. Lema Consults: ICU network internship Pulm Dr. Huerta Surgery Dr Shannon Time Spent in preparation of Discharge (in minutes): 45 Hospital Course - Lab Results Lab Results: Micro Results 11/15/16 Unknown Naris MRSA Culture (Admit) - Final MRSA NOT DETECTED 11/15/16 19:30 Bronchial Washings Bronchial Culture - Final NORMAL SAPROPHYTIC LOCO 11/15/16 19:30 Bronchial Washings Fungal Culture - Preliminary 11/15/16 07:48 Other: Please Indicate Mycobacterial Culture - Preliminary 11/14/16 Unknown Nose MRSA Culture - Final MRSA NOT DETECTED 11/13/16 20:00 Naris MRSA Culture (Admit) - Final MRSA NOT DETECTED Most Recent Lab Values WBC 4.6 K/uL (4.8-10.8) L 11/18/16 07:17 RBC 4.03 Mil/uL (4.40-5.90) L 11/18/16 07:17 Hgb 12.0 g/dL (12.0-18.0) 11/18/16 07:17 Hct 36.2 % (35.0-51.0) 11/18/16 07:17 MCV 89.8 fL (80.0-94.0) 11/18/16 07:17 MCH 29.8 pg (27.0-31.0) 11/18/16 07:17 MCHC 33.2 g/dL (33.0-37.0) 11/18/16 07:17 RDW 13.2 % (11.5-14.5) 11/18/16 07:17 Plt Count 184 K/uL (130-400) 11/18/16 07:17 MPV 10.6 fL (7.2-11.7) 11/18/16 07:17 Neut % (Auto) 63.2 % (50.0-75.0) 11/18/16 07:17 Lymph % (Auto) 20.8 % (20.0-40.0) 11/18/16 07:17 [place] % (Auto) 9.8 % (0.0-10.0) 11/18/16 07:17 Eos % (Auto) 5.6 % (0.0-4.0) H 11/18/16 07:17 Baso % (Auto) 0.6 % (0.0-2.0) 11/18/16 07: Neut # 2.9 K/uL (1.8-7.0) 11/18/16 07: Lymph # 1.0 K/uL (1.0-4.3) 11/18/16 07: [place] # 0.5 K/uL (0.0-0.8) 11/18/16 07: Eos # 0.3 K/uL (0.0-0.7) 11/18/16 07: Baso # 0.0 K/uL (0.0-0.2) 11/18/16 07: PT 10.7 SECONDS (9.7-12.2) 11/12/16 12:15 INR 1.0 11/12/16 12:15 APTT 31 SECONDS (21-34) 11/12/16 12:15 Puncture Site Rba 11/16/16 07:50 pCO2 37 mm/Hg (35-45) 11/16/16 07:50 pO2 67 mm/Hg (80-100) L 11/16/16 07:50 HCO3 25.7 mmol/L (21-28) 11/16/16 07:50 ABG pH 7.44 (7.35-7.45) 11/16/16 07:50 ABG Total CO2 26.2 mmol/L (22-28) 11/16/16 07:50 ABG O2 Saturation 96.0 % (95-98) 11/16/16 07:50 ABG Base Excess 1.1 mmol/L (-2.0-3.0) 11/16/16 07:50 ABG Hemoglobin 14.0 g/dL (11.7-17.4) 11/16/16 07:50 ABG Carboxyhemoglobin 1.7 % (0.5-1.5) H 11/16/16 07:50 POC ABG HHb (Measured) 3.9 % (0.0-5.0) 11/16/16 07:50 ABG Methemoglobin 0.8 % (0.0-3.0) 11/16/16 07:50 Riky Test Pos 11/16/16 07:50 A-a O2 Difference 115.0 mm/Hg 11/16/16 07:50 Respiratory Index 1.7 11/16/16 07:50 Hgb O2 Saturation 93.6 % (95.0-98.0) L 11/16/16 07:50 Liter Flow 3.0 11/16/16 07:50 FiO2 32.0 % 11/16/16 07:50 Sodium 139 mmol/L (132-148) 11/18/16 07:17 Potassium 3.4 mmol/L (3.6-5.2) L 11/18/16 07:17 Chloride 104 mmol/L (98-107) 11/18/16 07:17 Carbon Dioxide 27 mmol/L (22-30) 11/18/16 07:17 Anion Gap 12 (10-20) 11/18/16 07:17 BUN 13 mg/dL (9-20) 11/18/16 07:17 Creatinine 0.7 MG/DL (0.8-1.5) L 11/18/16 07:17 Est GFR ( Amer) > 60 11/18/16 07:17 Est GFR (Non-Af Amer) > 60 11/18/16 07:17 Random Glucose 101 mg/dL (75-110) 11/18/16 07:17 Calcium 7.7 mg/dl (8.6-10.4) L 11/18/16 07:17 Phosphorus 4.5 mg/dL (2.5-4.5) 11/18/16 07:17 Magnesium 1.9 mg/dL (1.6-2.3) 11/18/16 07:17 Total Bilirubin 0.7 mg/dL (0.2-1.3) 11/18/16 07:17 AST 15 U/L (17-59) L 11/18/16 07:17 ALT 29 U/L (21-72) 11/18/16 07:17 Alkaline Phosphatase 32 U/L (38-126) L D 11/18/16 07:17 Total Creatine Kinase 306 U/L (55-170) H 11/15/16 15:45 CK-MB (Mass) 0.70 ng/mL (0.0-3.38) 11/15/16 15:45 Troponin I, Quant < 0.0120 ng/mL (0.00-0.120) 11/15/16 15:45 NT-Pro-B Natriuret Pep 83.2 pg/mL (0-900) 11/17/16 08:42 Total Protein 5.7 g/dL (6.3-8.3) L 11/18/16 07:17 Albumin 3.0 g/dL (3.5-5.0) L 11/18/16 07:17 Globulin 2.7 gm/dL (2.2-3.9) 11/18/16 07:17 Albumin/Globulin Ratio 1.1 (1.0-2.1) 11/18/16 07:17 Urine Color Yellow (YELLOW) 11/12/16 12:00 Urine Clarity Clear (Clear) 11/12/16 12:00 Urine pH 5.0 (5.0-8.0) 11/12/16 12:00 Ur Specific [place] 1.018 (1.003-1.030) 11/12/16 12:00 Urine Protein Negative mg/dL (NEGATIVE) 11/12/16 12:00 Urine Glucose (UA) Normal mg/dL (Normal) 11/12/16 12:00 Urine Ketones Negative mg/dL (NEGATIVE) 11/12/16 12:00 Urine Blood Negative (NEGATIVE) 11/12/16 12:00 Urine Nitrate Negative (NEGATIVE) 11/12/16 12:00 Urine Bilirubin Negative (NEGATIVE) 11/12/16 12:00 Urine Urobilinogen Normal mg/dL (0.2-1.0) 11/12/16 12:00 Ur Leukocyte Esterase Neg Deondre/uL (Negative) 11/12/16 12:00 Urine WBC (Auto) < 1 /hpf (0-5) 11/12/16 12:00 Urine RBC (Auto) 1 /hpf (0-3) 11/12/16 12:00 Blood Type A NEGATIVE 11/12/16 18:24 Antibody Screen Negative 11/12/16 18:24 - Hospital Course Hospital Course: Upon Admission Pt is a 55 y/o male with a PMHx of cocaine and marijuana abuse and CVA (6 years ago) who presents to the ED after he was sent by for a reversal of a colostomy bag. Pt reports that he had the ostomy placed in 2015 following an infection in his stomach. Pt cannot recall the exactly what the diagnosis was. He reports that he experienced pain in his back and numbness and tingling in his bilateral lower extremities. Pt reports that he currently feels well. Pt denies fever, chills, chest pain, shortness of breath, nausea, and vomiting. Patient was admitted. Surgery Dr Shannon recommended antibiotics, type and screen, and patient was kept NPO for possible ostomy reversal the following day. Patient was transferred to ICU s/p [place] reversal. Patient had an NGT which was removed on day#2 s/op ostomy reversal. Patient began to develop some SOB and pulmonology Dr. Huerta was consulted. Patient had bronchoscopy with bronchoalveolar lavage and complete reexpansion of left lung. Patient as transferred to the floors and was clinically stable, ambulating, using IS, and had the Manjinder drain in place. On day of discharge patient was deemed medically stable for discharge. 1) Reversal of ostomy: f/u with Dr. Shannon outpatient 2) Left lung collapse: stable from pulm standpoint Upon Discharge As per Dr. Shannon patient was dishcarged home and to f/u with Dr. Shannon within 1 week. "Tylenol for pain. Colace OTC. Remove dressing and shower tomorrow. Leave incision uncovered" Discharge Exam - Head Exam Head Exam: ATRAUMATIC, NORMAL INSPECTION, NORMOCEPHALIC - Eye Exam Eye Exam: EOMI, Normal appearance, PERRL. absent: Conjunctival injection, Scleral icterus - ENT Exam ENT Exam: Mucous Membranes Moist - Neck Exam Neck exam: Full Rom, Normal Inspection - Respiratory Exam Respiratory Exam: Clear to PA & Lateral, NORMAL BREATHING PATTERN, UNREMARKABLE. absent: Accessory Muscle Use, Rales, Rhonchi, Wheezes, Respiratory Distress - Cardiovascular Exam Cardiovascular Exam: REGULAR RHYTHM, RRR, +S1, +S2 - GI/Abdominal Exam GI & Abdominal Exam: Normal Bowel Sounds, Soft, Tenderness (approp to surgery) Additional comments: drain in place- dressings c/d/i - Extremities Exam Extremities exam: normal capillary refill, normal inspection, pedal pulses present - Back Exam Back exam: NORMAL INSPECTION. absent: rash noted, tenderness - Neurological Exam Neurological exam: Alert, CN II-XII Intact, Oriented x3 - Psychiatric Exam Psychiatric exam: Normal Affect, Normal Mood - Skin Skin Exam: Dry, Intact, Normal Color, Warm Discharge Plan - Follow Up Plan Condition: STABLE Disposition: HOME/ ROUTINE Instructions: How to Stop Smoking (DC), Heart Healthy Diet (DC), Cigarette Smoking and Your Health (GEN), Flexible Bronchoscopy (DC), Open Colostomy Reversal (DC), Acute Abdominal Pain (DC), Acute Abdominal Pain (GEN) Additional Instructions: Follow up with DR Shannon in one week call for appt. tylenol for pain colace OTC remove dressing and shower tomorrow. Leave incision uncovered Referrals: Gen Huerta MD [Staff Provider] - Partha Shannon MD [Staff Provider] -
== END 2016-11-18 12:50 | disposition home or self-care (01) | DRG 188 ==
LOC: C.ER 11:11 → EEVIPCON 11:51 → C.9E 11:51 → C.3T 17:59 → C.9I 11-13 18:17 → C.6T 11-14 19:02 → C.9I 11-15 15:35 → C.6T 11-16 21:38
PROVIDERS: ADMIT Internal Medicine; ATTEND Internal Medicine
PROC: 0DQP0ZZ Repair Rectum, Open Approach (ICD-10-PCS; principal; 2016-11-12)
PROC: 0B978ZX Drainage of Left Main Bronchus, Via Natural or Artificial Opening Endoscopic, Diagnostic (ICD-10-PCS; 2016-11-15)
DX: Z43.3 Encounter for attention to colostomy (principal); F14.90 Cocaine use, unspecified, uncomplicated; T17.590A Other foreign object in bronchus causing asphyxiation, initial encounter; J98.19 Other pulmonary collapse; F17.210 Nicotine dependence, cigarettes, uncomplicated; F12.10 Cannabis abuse, uncomplicated; Z86.73 Personal history of transient ischemic attack (TIA), and cerebral infarction without residual deficits

== ENCOUNTER 2016-11-19 14:07 | Emergency (ER) | payer OTHER | END 2016-11-19 14:13 | disposition left against medical advice (07) | LOC: C.ER 14:07 | DX: R10.9 Unspecified abdominal pain (principal); Z02.9 Encounter for administrative examinations, unspecified ==

== ENCOUNTER 2016-12-28 17:32 | Inpatient (IN) | payer OTHER ==
[2016-12-28 17:33] VITALS: BMI 28.6
[2016-12-28] MEDS ORDERED: Sodium Chloride 0.9% 1,000 ML IV ONE (18:35)
[2016-12-28] MEDS ORDERED: Morphine 4 MG/ML VIAL ONE (18:47)
[2016-12-28 18:50] LABS: BASO # 0.1 K/uL (0.0-0.2); BASO % 0.5 % (0.0-2.0); EOS % 0.5 % (0.0-4.0); HEMOGLOBIN 15.5 g/dL (12.0-18.0); LYMPH # 2.4 K/uL (1.0-4.3); LYMPH % 22.3 % (20.0-40.0); MEAN CELL VOLUME 89.4 fL (80.0-94.0); MEAN CORPUSCULAR HGB CONC 33.6 g/dL (33.0-37.0); MEAN PLATELET VOLUME 10.9 fL (7.2-11.7); MONO # 0.7 K/uL (0.0-0.8); MONO % 6.7 % (0.0-10.0); NEUT # 7.4 K/uL (1.8-7.0); RBC 5.15 Mil/uL (4.40-5.90); RED CELL DISTRIBUTION WIDTH 13.6 % (11.5-14.5); WHITE BLOOD COUNT 10.6 K/uL (4.8-10.8)
[2016-12-28 19:15] LABS: ALBUMIN 3.9 g/dL (3.5-5.0)
[2016-12-28 19:17] LABS: GFR AFRICAN-AMERICAN > 60; GFR NON-AFRICAN AMERICAN > 60
[2016-12-28 19:18] LABS: ALB/GLOB RATIO 1.3 (1.0-2.1); ALT/SGPT 19 U/L (21-72); AST/SGOT 18 U/L (17-59); BLOOD UREA NITROGEN 13 mg/dL (9-20); CALCIUM 9.2 mg/dl (8.6-10.4); LIPASE 81 U/L (23-300)
[2016-12-28] MEDS ORDERED: Iohexol 240 (50 ml) PO STA (20:16)
[2016-12-28] MEDS ORDERED: Iohexol 240 (50 ml) ONE (20:26)
[2016-12-28] MEDS ORDERED: Iodixanol 320 MG/ML 100 ML BOTTLE IV ONE (20:28)
--- NOTE | 2016-12-28 23:00 | CT ---
EXAM: CT Abdomen and Pelvis With Intravenous Contrast CLINICAL HISTORY: 56 years old, male; Pain and signs and symptoms; Other: Rectal bleed; Abdominal pain; Epigastric; Additional info: Abd pain, rectal bleeding S/P colostomy reversal. TECHNIQUE: Axial computed tomography images of the abdomen and pelvis with intravenous contrast. This CT exam was performed using one or more of the following dose reduction techniques: automated exposure control, adjustment of the mA and/or kV according to patient size, and/or use of iterative reconstruction technique. Coronal and sagittal reformatted images were created and reviewed. CONTRAST: 100 mL of visipaque 320 administered intravenously. COMPARISON: No relevant prior studies available. FINDINGS: Lower thorax: The bilateral lung bases are clear. ABDOMEN: Liver: No acute findings. Gallbladder and bile ducts: The gallbladder is only minimally distended, without calcified stones. No significant intra- or extrahepatic biliary ductal dilation. Pancreas: Enhances homogeneously. No ductal dilation. No discrete mass. Spleen: No acute findings. Adrenals: No acute findings. Kidneys and ureters: No acute findings. No hydronephrosis or renal calculi. No discrete solid mass. PELVIS: Bladder: No acute findings. Reproductive: No acute findings. Appendix: The air filled appendix is of normal caliber (series 3, image 128) . ABDOMEN and PELVIS: Stomach and bowel: No obstruction. Mural thickening and extensive mucosal edema is identified within the distal descending and sigmoid colons. Trace surrounding inflammatory change is also identified, just proximal to the enteric staple line, within the left lower quadrant. Bilateral fat containing inguinal hernias are present. Peritoneum: As above. Lymph nodes: Multiple minimally enlarged nodes within the retroperitoneum, as well as within the root of mesentery, a nonspecific finding. Vasculature: Trace calcified atherosclerotic disease. Bones: No acute fracture. IMPRESSION: Mural thickening and edema with surrounding inflammatory change is identified within the distal descending and sigmoid colons, as detailed above.
[2016-12-28] MEDS ORDERED: Ciprofloxacin 400mg/200ml D5W 400 MG/200 ML BAG IVPB STA (23:15)
[2016-12-28] MEDS ORDERED: metroNIDAZOLE IV 500 mg/100 ml 500 MG/100 ML BAG IVPB STA (23:15)
[2016-12-28] MEDS ORDERED: metroNIDAZOLE IV 500 mg/100 ml 500 MG/100 ML BAG ONE (23:26)
--- NOTE | 2016-12-28 23:26 | C.PDOC ---
Time Seen by Provider: 12/28/16 18:26 Chief Complaint (Nursing): GI Problem History Per: Patient, Family Onset/Duration Of Symptoms: Days (1) Current Symptoms Are (Timing): Worse Severity: Severe Location Of Pain/Discomfort: LLQ Quality Of Discomfort: Cramping, "Pain" Associated Symptoms: Diarrhea (loose stools) Alleviating Factors: None Additional History Per: Prior Records Past Medical History Reviewed: Historical Data, Nursing Documentation, Vital Signs Vital Signs: Last Vital Signs Temp 98.6 F 12/28/16 19:39 Pulse 58 L 12/28/16 22:57 Resp 17 12/28/16 22:57 BP 121/70 12/28/16 22:57 Pulse Ox 99 12/28/16 22:57 - Medical History PMH: Anxiety, Depression Other Surgeries: Colostomy reversal - [facility] Procedures BYPASS SIGMOID COLON TO CUTANEOUS, OPEN APPROACH (05/11/16) DRAINAGE OF LEFT MAIN BRONCHUS, ENDO, DIAGN (11/12/16) REPAIR RECTUM, OPEN APPROACH (11/12/16) RESECTION OF SIGMOID COLON, OPEN APPROACH (05/11/16) Family History: States: Unknown Family Hx - Social History Hx Alcohol Use: No Hx Substance Use: Yes (marijuana) - Immunization History Hx Tetanus Toxoid Vaccination: No Hx Influenza Vaccination: No Hx Pneumococcal Vaccination: No Review Of Systems Except As Marked, All Systems Reviewed And Found Negative. Constitutional: Negative for: Fever Cardiovascular: Negative for: Chest Pain Respiratory: Negative for: Shortness of Breath Gastrointestinal: Positive for: Abdominal Pain, Hematochezia Genitourinary: Negative for: Dysuria Musculoskeletal: Negative for: Neck Pain Skin: Negative for: Rash Neurological: Negative for: Weakness, Numbness, Seizures, Altered Mental Status Physical Exam - Physical Exam Appears: No Acute Distress, Other (Uncomfortable) Skin: Normal Color, Warm, Dry, No Rash Head: Atraumatic, Normacephalic Eye(s): bilateral: PERRL, EOMI Neck: Normal ROM, Supple Cardiovascular: Rhythm Regular Respiratory: Normal Breath Sounds, No Accessory Muscle Use Gastrointestinal/Abdominal: Soft, Tenderness (LLQ) Rectal: Heme Positive, Tenderness, Other (No stool in rectal vault.) Back: No CVA Tenderness Extremity: Normal ROM Neurological/Psych: Oriented x3, Normal Motor, Normal Sensation ED Course And Treatment - Laboratory Results Result Diagrams: 12/28/16 18:45 12/28/16 18:45 O2 Sat by Pulse Oximetry: 99 Pulse Ox Interpretation: Normal - CT Scan/US CT abd/pelv Other Rad Studies (CT/US): Read By Radiologist, Radiology Report Reviewed CT/US Interpretation: IMPRESSION: . Mural thickening and edema with surrounding inflammatory change is identified. within the distal descending and sigmoid colons, as detailed above. - Physician Consult Information Physician Contacted: Partha Shannon Outcome Of Conversation: He wants pt to be admitted to the hospital and receive a CT scan of abdomen. Progress - Interventions Interventions:: Observation, Intravenous fluid - Medications Administered Intravenous: Opiate - Data Reviewed Data Reviewed: Lab, Diagnostic imaging, Old records - Patient Status Patient status: Partially improved - Continuity of Care Discussed patient case with:: Patient, Family-HIPPA compliant, ED Nurse, On- call PMD-pt unassigned Discussed pt. case with framing consultant/specialty: General Surgery - Patient Plan Patient Plan: Admission Disposition Discussed With : Louis Blackwood Comment: He accepted pt on hospitalist service. Doctor Will See Patient In The: Hospital Counseled Patient/Family Regarding: Studies Performed, Diagnosis - Disposition Disposition: HOSPITALIZED Disposition Time: 23:28 Condition: FAIR - Clinical Impression Clinical Impression: Acute colitis
[2016-12-29] MEDS ORDERED: Ciprofloxacin 400mg/200ml D5W 400 MG/200 ML BAG IVPB ONE (00:05)
[2016-12-29] MEDS ORDERED: Potassium Chloride 20 mEq ER Tab PO STA (00:14)
--- NOTE | 2016-12-29 00:35 | CP.PCM.HP ---
<Kelly Vallejo - Last Filed: 12/29/16 00:18> History of Present Illness - History of Present Illness History of Present Illness: CC: "Abdominal Pain" HPI: Patient is a 55 y/o male with a PMHx of cocaine and marijuana abuse and CVA (6 years ago), perforated diverticulitis with colostomy bad and reversal on last admission in November 2016 who presents to the ED with abdominal pain. He reports that the pain started this morning when he woke up. It is crampy in nature and has been constant since this morning. It does not radiate. Patient states nothing makes the pain feel better. He states that he feels as if he has to have a bowel movement but he was not able to until 1:30 this afternoon. He reports that this BM was liquid and brown in color. At 5:00 he reports he had a BM that was a large amount of bright red blood in the toilet and this prompted his er visit today. He felt as if he had to move his bowels all day. Patient also stated he had another episode of a bloody BM while in the ED and he showed the staff. Per the ED attending the BM was soft and brown with trace blood. Patient reports mild dizziness and states that he felt weak today. He denied chest pain, shortness of breath, nausea, and vomiting. PMHx: Cocaine and marijuana abuse and CVA (6 years ago) Home medications: none reported Past Surgical Hx: ostomy bag (May 2016) with reversal 11/18/16, right inguinal hernia repair many years ago Allergies: NKDA Famhx: noncontributory Social Hx: reports smoking half a pack of cigarettes/day for 40 years, reports social alcohol use, reports past history of heavy cocaine use, report daily marijuana use for over 40 years PMD: Ginger GI: Siegal Gen surgery: Shiva Present on Admission - Present on Admission Any Indicators Present on Admission: No Review of Systems - Constitutional Constitutional: absent: Chills, Fever - EENT Eyes: absent: Blurred Vision, Change in Vision - Cardiovascular Cardiovascular: absent: Chest Pain, Chest Pain at Rest, Leg Edema, Palpitations , Pedal Edema, Syncope - Respiratory Respiratory: absent: Cough, Dyspnea, Dyspnea on Exertion - Gastrointestinal Gastrointestinal: Abdominal Pain, Bloating, Change in Bowel Habits, Diarrhea, Temesmus. absent: Constipation, Nausea, Vomiting - Genitourinary Genitourinary: Urinary Frequency. absent: Change in Urinary Stream, Difficulty Urinating - Musculoskeletal Musculoskeletal: absent: Numbness, Tingling - Neurological Neurological: Dizziness. absent: Tingling, Weakness Past Patient History - Infectious Disease Hx of Infectious Diseases: None - Past Medical History & Family History Past Medical History?: Yes - Past Social History Smoking Status: Heavy Smoker > 10 Cigarettes Daily - CARDIAC Hx Cardiac Disorders: Yes - PULMONARY Hx Respiratory Disorders: No - NEUROLOGICAL HX Cerebrovascular Accident: Yes (''4 years ago'') - HEENT Hx HEENT Problems: No - RENAL Hx Chronic Kidney Disease: No - ENDOCRINE/METABOLIC Hx Endocrine Disorders: No - HEMATOLOGICAL/ONCOLOGICAL Hx Blood Disorders: No - INTEGUMENTARY Hx Dermatological Problems: No - MUSCULOSKELETAL/RHEUMATOLOGICAL Hx Musculoskeletal Disorders: No Hx Falls: No - GASTROINTESTINAL Hx Gastrointestinal Disorders: Yes Other/Comment: H/O RUPTURED COLON DUE TO INFECTION. Pt with left abdomen colostomy - GENITOURINARY/GYNECOLOGICAL Hx Genitourinary Disorders: Yes (SEE COMMENT) - PSYCHIATRIC Hx Anxiety: Yes Hx Depression: Yes Hx Substance Use: Yes (marijuana) - SURGICAL HISTORY Hx Surgeries: Yes (SEE COMMENT) Other/Comment: LEFT INGUINAL HERNIA SX; colon resection and reversal 2016. - ANESTHESIA Hx Anesthesia: Yes Hx Anesthesia Reactions: No Hx Malignant Hyperthermia: No Meds Allergies/Adverse Reactions: Allergies Allergy/AdvReac Type Severity Reaction Status Date / Time No Known Allergies Allergy Verified 11/12/16 11:41 Physical Exam - Constitutional Appears: Non-toxic, No Acute Distress - Head Exam Head Exam: ATRAUMATIC, NORMAL INSPECTION - Eye Exam Eye Exam: EOMI, Normal appearance, PERRL Pupil Exam: NORMAL ACCOMODATION - ENT Exam ENT Exam: Mucous Membranes Moist - Respiratory Exam Respiratory Exam: Clear to Auscultation Bilateral, NORMAL BREATHING PATTERN. absent: Accessory Muscle Use, Chest Wall Tenderness, Rales, Wheezes, Respiratory Distress - Cardiovascular Exam Cardiovascular Exam: REGULAR RHYTHM, +S1, +S2. absent: Tachycardia, JVD - GI/Abdominal Exam GI & Abdominal Exam: Hyperactive Bowel Sounds, Soft, Tenderness. absent: Distended, Firm, Guarding - Extremities Exam Extremities exam: Positive for: normal inspection. Negative for: calf tenderness, pedal edema - Back Exam Back exam: NORMAL INSPECTION. absent: CVA tenderness (L), CVA tenderness (R), paraspinal tenderness - Neurological Exam Neurological exam: Alert, Normal Gait, Oriented x3 - Psychiatric Exam Psychiatric exam: Normal Affect, Normal Mood - Skin Skin Exam: Dry, Intact, Normal Color, Warm Results - Vital Signs Recent Vital Signs: Last Vital Signs Temp 98.6 F 12/28/16 19:39 Pulse 58 L 12/28/16 22:57 Resp 17 12/28/16 22:57 BP 121/70 12/28/16 22:57 Pulse Ox 99 12/28/16 23:29 - Labs Result Diagrams: 12/28/16 18:45 12/28/16 18:45 Assessment & Plan - Assessment and Plan (Free Text) Assessment: 55 y/o male with a PMHx of cocaine and marijuana abuse and CVA (6 years ago), with perforated diverticultis s/p colostomy ad reversal present with colitis: Plan: Colitis -CT abd/pelvis - Mural thickening and edema with surrounding inflammatory change is identified. within the distal descending and sigmoid colons, as detailed above. -afebrile, no leukocytosis -Cipro 400mg IVPB Q12 hours (started 12/28) -Flagyl 500mg IVPB Q8 hours (started 12/28) -Morphine 2mg IVP Q6 prn pain -Stool occult positive -GI consulted - Dr. Quezada, help appreciated - r/o GI bleed -Hbg 15.5 -AST/ALT -Lipase - 81 -f/u am labs, UA, UDS, stool studies, C.diff Hypokalemia K 3.4 KCL 40 meq x 1 dose PO Reversal of Colostomy -Hx perforated diverticulitis, has colostomy bag then has it reversed in November [address] Shannon Prophlyactic Measures: -DVT: SCDs -GI: Protonix 40 mg IVP [id number] -NPO -NS at 100 cc/hour <Louis Blackwood - Last Filed: 12/29/16 06:21> Results - Vital Signs Recent Vital Signs: Last Vital Signs Temp 98.4 F 12/29/16 00:48 Pulse 52 L 12/29/16 00:48 Resp 20 12/29/16 00:48 BP 133/80 12/29/16 00:48 Pulse Ox 97 12/29/16 00:48 - Labs Result Diagrams: 12/28/16 18:45 12/28/16 18:45 Assessment & Plan - Date & Time Date: 12/29/16 (I have seen and examined the patient. I agree with the findings and plan of care as documented by Dr. Vallejo. Patient with colitis. History of colostomy and then reversal after complications from due to diverticulitis. Positive hemoccult. Cipro and flagyl for now. Consult to GI. Symptomatic treatment. Monitor CBC. Monitor for acute changes.) Time: 06:19 Attending/Attestation - Attestation I have personally seen and examined this patient.: Yes I have fully participated in the care of the patient.: Yes I have reviewed all pertinent clinical information: Yes
[2016-12-29] MEDS: Sodium Chloride 0.9% 1,000 ML IV SCH ×3 (01:12→21:10)
[2016-12-29] MEDS: metroNIDAZOLE IV 500 mg/100 ml 500 MG/100 ML BAG IVPB SCH ×3 (05:50→21:57)
[2016-12-29 07:33] LABS: BASO # 0.1 K/uL (0.0-0.2); BASO % 0.7 % (0.0-2.0); EOS # 0.2 K/uL (0.0-0.7); EOS % 2.2 % (0.0-4.0); LYMPH # 2.4 K/uL (1.0-4.3); LYMPH % 28.5 % (20.0-40.0); MEAN CELL VOLUME 91.1 fL (80.0-94.0); MEAN CORPUSCULAR HGB CONC 32.9 g/dL (33.0-37.0); MEAN PLATELET VOLUME 11.6 fL (7.2-11.7); MONO # 0.8 K/uL (0.0-0.8); NEUT % 59.6 % (50.0-75.0); NRBC % 0.1 % (0.0-2.0); RBC 5.01 Mil/uL (4.40-5.90); RED CELL DISTRIBUTION WIDTH 13.6 % (11.5-14.5); WHITE BLOOD COUNT 8.4 K/uL (4.8-10.8)
[2016-12-29 07:40] LABS: ALBUMIN 3.6 g/dL (3.5-5.0)
[2016-12-29 07:43] LABS: ALB/GLOB RATIO 1.2 (1.0-2.1); ALT/SGPT 20 U/L (21-72); AST/SGOT 19 U/L (17-59); BLOOD UREA NITROGEN 9 mg/dL (9-20); GFR AFRICAN-AMERICAN > 60; GFR NON-AFRICAN AMERICAN > 60
[2016-12-29 07:44] LABS: CALCIUM 8.5 mg/dl (8.6-10.4); MAGNESIUM 1.8 mg/dL (1.6-2.3)
[2016-12-29 08:17] LABS: URINE BILIRUBIN NEGATIVE (NEGATIVE); URINE BLOOD NEGATIVE (NEGATIVE); URINE CLARITY Clear (Clear); URINE COLOR Straw (YELLOW); URINE GLUCOSE (UA) NORMAL (Normal); URINE LEUKOCYTE ESTERASE NEG Leu/uL (Negative); URINE NITRATE NEGATIVE (NEGATIVE); URINE PROTEIN NEGATIVE (NEGATIVE); URINE UROBILINOGEN NORMAL mg/dL (0.2-1.0)
[2016-12-29] MEDS ORDERED: Bisacodyl 5mg EC Tab PO ONE (10:29)
--- NOTE | 2016-12-29 11:05 | CP.PCM.CON ---
History of Present Illness - History of Present Illness History of Present Illness: 56 yo male well known to me with h/o perforated diverticulitis 2016 with colostomy/Hartmans and reversal of Hartmans' pouch 11/2016 after colonoscopy reported normal post op findings. Patient reports on Wednesday he helped friend lift heavy furniture and this was followed by lower abdominal pain. Went to see surgeon on wednesday and was told he was fine. Began having worsening LLQ pain and trouble initiating bowel movement that was followed by a bloody stool yesterday morning. Now has urge to defecate but trouble moving bowels. Has low grade white count and CT SCan shows thickening and inflammatory changes in the distal descending colon by the anastamosis. No fever, N/V. No bowel movement today. Pain is less 3-4/10 today. Review of Systems - Cardiovascular Cardiovascular: absent: Chest Pain, Chest Pain at Rest, Dyspnea, Edema, Palpitations - Respiratory Respiratory: absent: Cough, Snoring, Chest Congestion - Gastrointestinal Gastrointestinal: As Per HPI, Abdominal Pain, Change in Stool Character, Constipation, Hematochezia Past Patient History - Infectious Disease Hx of Infectious Diseases: None - Past Medical History & Family History Past Medical History?: Yes - Past Social History Smoking Status: Heavy Smoker > 10 Cigarettes Daily Alcohol: None Drugs: Other (former drug user) - CARDIAC Hx Cardiac Disorders: Yes - PULMONARY Hx Respiratory Disorders: No - NEUROLOGICAL Hx Neurological Disorder: Yes HX Cerebrovascular Accident: Yes (''4 years ago'') - HEENT Hx HEENT Problems: No - RENAL Hx Chronic Kidney Disease: No - ENDOCRINE/METABOLIC Hx Endocrine Disorders: No - HEMATOLOGICAL/ONCOLOGICAL Hx Blood Disorders: No Hx Cirrhosis: No Hx Hepatitis A: No Hx Hepatitis B: No Hx Hepatitis C: No Hx Human Immunodeficiency Virus (HIV): No - INTEGUMENTARY Hx Dermatological Problems: No - MUSCULOSKELETAL/RHEUMATOLOGICAL Hx Falls: No - GASTROINTESTINAL Hx Gastrointestinal Disorders: Yes Hx Bowel Surgery: Yes Hx Clostridium Difficile: No Hx Colitis: No Hx Colostomy: Yes (Reversal of colostomy 11/18) Hx Constipation: Yes Hx Crohn's Disease: No Hx Diarrhea: No Hx Diverticulitis: Yes (as above with perforation 2015) Hx Gastroesophageal Reflux: Yes Hx Hemorrhoids: Yes Hx Ileostomy: No Hx Irritable Bowel: No Hx Liver Failure: No Hx Nausea: No Hx Pancreatitis: No HX Swallowing Problems: No Hx Ulcer: No Hx Vomiting: No Other/Comment: H/O RUPTURED COLON DUE TO Diverticulitis 2016. Pt with left abdomen colostomy - GENITOURINARY/GYNECOLOGICAL Hx Genitourinary Disorders: No - PSYCHIATRIC Hx Substance Use: Yes (smokes marijuana) - SURGICAL HISTORY Hx Surgeries: Yes (SEE COMMENT) Other/Comment: LEFT INGUINAL HERNIA SX; colon resection and reversal 2017. - ANESTHESIA Hx Anesthesia: Yes Hx Anesthesia Reactions: No Hx Malignant Hyperthermia: No Has any member of the family had a problem w/ anesthesia?: No Meds Allergies/Adverse Reactions: Allergies Allergy/AdvReac Type Severity Reaction Status Date / Time No Known Allergies Allergy Verified 11/12/16 11:41 - Medications Medications: Current Medications Sodium Chloride (Sodium Chloride 0.9%) 1,000 mls @ 100 mls/hr IV .Q10H [facility] Last Admin: 12/29/16 09:48 Dose: 100 mls/hr Ciprofloxacin (Cipro 400mg/200ml Dsw) 400 mg in 200 mls @ 133 mls/hr IVPB Q12H [facility] Metronidazole (Flagyl) 500 mg in 100 mls @ 100 mls/hr IVPB Q8 [facility] Last Admin: 12/29/16 05:50 Dose: 100 mls/hr Morphine Sulfate (Morphine) 2 mg IVP Q6 PRN PRN Reason: Pain, severe (8-10) Last Admin: 12/29/16 08:35 Dose: 2 mg Ondansetron HCl (Zofran Inj) 4 mg IVP Q6 PRN PRN Reason: Nausea/Vomiting Pantoprazole Sodium (Protonix Inj) 40 mg IVP Q12H [facility] Last Admin: 12/29/16 07:00 Dose: 40 mg Pneumococcal Polyvalent Vaccine (Pneumovax 23 Vaccine) 0.5 ml IM .ONCE ONE Stop: 12/31/16 10:01 Physical Exam - Constitutional Appears: No Acute Distress - Head Exam Head Exam: ATRAUMATIC, NORMOCEPHALIC - Eye Exam Eye Exam: EOMI, PERRL - ENT Exam ENT Exam: Mucous Membranes Moist - Neck Exam Neck exam: Positive for: Normal Inspection - Respiratory Exam Respiratory Exam: Clear to Auscultation Bilateral, NORMAL BREATHING PATTERN - Cardiovascular Exam Cardiovascular Exam: REGULAR RHYTHM, +S1 - GI/Abdominal Exam GI & Abdominal Exam: Guarding, Hypoactive Bowel Sounds, Soft, Tenderness. absent: Rebound, Rigid - Rectal Exam Rectal Exam: NORMAL INSPECTION - Extremities Exam Extremities exam: Positive for: normal inspection - Neurological Exam Neurological exam: Alert, Oriented x3 - Psychiatric Exam Psychiatric exam: Normal Affect, Normal Mood - Skin Skin Exam: Dry, Warm Results - Vital Signs Recent Vital Signs: Last Vital Signs Temp 97.8 F 12/29/16 08:00 Pulse 55 L 12/29/16 08:00 Resp 20 12/29/16 08:00 BP 123/76 12/29/16 08:00 Pulse Ox 98 12/29/16 08:00 - Labs Result Diagrams: 12/29/16 07:25 12/29/16 07:25 Labs: Laboratory Results - last 24 hr 12/29/16 12/29/16 12/29/16 07:25 07:25 07:31 WBC 8.4 RBC 5.01 Hgb 15.0 Hct 45.6 MCV 91.1 MCH 30.0 MCHC 32.9 L RDW 13.6 Plt Count 190 MPV 11.6 Neut % (Auto) 59.6 Lymph % (Auto) 28.5 [place] % (Auto) 9.0 Eos % (Auto) 2.2 Baso % (Auto) 0.7 Neut # 5.0 Lymph # 2.4 [place] # 0.8 Eos # 0.2 Baso # 0.1 Sodium 139 Potassium 4.1 Chloride 109 H Carbon Dioxide 21 L Anion Gap 13 BUN 9 Creatinine 0.7 L Est GFR ( Amer) > 60 Est GFR (Non-Af Amer) > 60 Random Glucose 100 Calcium 8.5 L Phosphorus 3.2 Magnesium 1.8 Total Bilirubin 0.8 AST 19 ALT 20 L Alkaline Phosphatase 53 Total Protein 6.6 Albumin 3.6 Globulin 2.9 Albumin/Globulin Ratio 1.2 Urine Color Straw Urine Clarity Clear Urine pH 5.0 Ur Specific [place] 1.024 Urine Protein Negative Urine Glucose (UA) Normal Urine Ketones Negative Urine Blood Negative Urine Nitrate Negative Urine Bilirubin Negative Urine Urobilinogen Normal Ur Leukocyte Esterase Neg Urine WBC (Auto) < 1 - Imaging and Cardiology CT scan - abdomen Status: Image reviewed by me, Report reviewed by me CT scan - pelvis Status: Image reviewed by me, Report reviewed by me Assessment & Plan (1) Acute colitis Assessment and Plan: Likely related to post op changes and trauma caused by patient lifting furniture prematurely. No clinical evidence of perforation. Exclude infectious etiology but doubt. Agree with stool studies Antibiotics per admitting team emperically Advance diet if clinically improved No plan for colonoscopy at this time in absence of overt bleeding and drop in H/ H. Status: Acute (2) Abnormal CT scan, colon Assessment and Plan: as above Status: Acute (3) LLQ abdominal pain Assessment and Plan: as above Status: Acute (4) Acute lower gastrointestinal bleeding Assessment and Plan: Monitor H/H and observe for active bleeding. May also be due to trauma to surgical anastamosis. No plans for colonoscopy at this time in absence of acute drop in H/H or persistent bleeding. Status: Acute
[2016-12-29] MEDS: Ciprofloxacin 400mg/200ml D5W 400 MG/200 ML BAG IVPB SCH (12:39)
--- NOTE | 2016-12-29 18:18 | CP.PCM.PN ---
Subjective - Date & Time of Evaluation Date of Evaluation: 12/29/16 Time of Evaluation: 09:40 - Subjective Subjective: Medicine Note (PGY 1) : Dr. Whitten's service Patient was seen and examined at bedside. Patient was in moderate discomfort. Patient reports abd pain that is localized to the LLQ, nausea, mild vomiting, fatigue, headache but denies chest pain, sob, fever and chills. Patient had an episode of an acute anxiety attack, which he usually uses marijuana for. Patient was given 0.1 mg after ensuring that vitals were stable. In addition, a psychiatric consult was placed due to the episode of acute anxiety attack, hx of cocaine and marijuana use and hx of depression. Objective - Vital Signs/Intake and Output Vital Signs (last 24 hours): Temp Pulse Resp BP Pulse Ox 97.8 F 58 L 19 129/80 95 12/29/16 15:00 12/29/16 15:00 12/29/16 15:00 12/29/16 15:00 12/29/16 15:00 Intake and Output: 12/29/16 12/29/16 06:59 18:59 Intake Total 500 Balance 500 - Medications Medications: Current Medications Sodium Chloride (Sodium Chloride 0.9%) 1,000 mls @ 100 mls/hr IV .Q10H [facility] Last Admin: 12/29/16 09:48 Dose: 100 mls/hr Ciprofloxacin (Cipro 400mg/200ml Dsw) 400 mg in 200 mls @ 133 mls/hr IVPB Q12H [facility] Last Admin: 12/29/16 12:39 Dose: 133 mls/hr Metronidazole (Flagyl) 500 mg in 100 mls @ 100 mls/hr IVPB Q8 [facility] Last Admin: 12/29/16 14:00 Dose: 100 mls/hr Morphine Sulfate (Morphine) 2 mg IVP Q6 PRN PRN Reason: Pain, severe (8-10) Last Admin: 12/29/16 08:35 Dose: 2 mg Ondansetron HCl (Zofran Inj) 4 mg IVP Q6 PRN PRN Reason: Nausea/Vomiting Last Admin: 12/29/16 14:05 Dose: 4 mg Pantoprazole Sodium (Protonix Inj) 40 mg IVP Q12H [facility] Last Admin: 12/29/16 07:00 Dose: 40 mg Pneumococcal Polyvalent Vaccine (Pneumovax 23 Vaccine) 0.5 ml IM .ONCE ONE Stop: 12/31/16 10:01 - Labs Labs: 12/29/16 07:25 12/29/16 07:25 PT 11.0 SECONDS (9.7-12.2) 12/28/16 18:45 INR 1.0 12/28/16 18:45 APTT 33 SECONDS (21-34) 12/28/16 18:45 - Constitutional Appears: In Acute Distress (Mild acute distress, anxious ) - Head Exam Head Exam: NORMAL INSPECTION, NORMOCEPHALIC - Eye Exam Eye Exam: EOMI, Normal appearance - ENT Exam ENT Exam: Mucous Membranes Moist, Normal Exam - Respiratory Exam Respiratory Exam: Clear to Ausculation Bilateral, NORMAL BREATHING PATTERN - Cardiovascular Exam Cardiovascular Exam: REGULAR RHYTHM, +S1, +S2 - GI/Abdominal Exam GI & Abdominal Exam: Tenderness (>LLQ), Hyperactive Bowel Sounds - Extremities Exam Extremities Exam: Normal Capillary Refill, Normal Inspection - Neurological Exam Neurological Exam: Alert, Awake, Oriented x3 - Psychiatric Exam Psychiatric exam: Anxious - Skin Skin Exam: Dry, Normal Color, Warm Assessment and Plan (1) Acute colitis Assessment & Plan: CT abd/pelvis - Mural thickening and edema with surrounding inflammatory change is identified within the distal descending and sigmoid colons afebrile, no leukocytosis C. Diff A B Toxin : Positive 12/29/16 Pending fecal leukocytes, ova and parasites Cipro 400mg IVPB Q12 hours (started 12/28) Flagyl 500mg IVPB Q8 hours (started 12/28) Morphine 2mg IVP Q6 prn pain Stool occult positive 12/28/16---> Hgb :15 and hematocrit: 45.6 AST/ALT 19/20 Alkaline phos : 53 Lipase - 81 GI consulted - Dr. Quezada, help appreciated - r/o GI bleed As per GI: Likely related to post op changes and trauma caused by patient lifting furniture prematurely. No clinical evidence of perforation. Exclude infectious etiology but doubt. Agree with stool studies Antibiotics per admitting team emperically Advance diet if clinically improved No plan for colonoscopy at this time in absence of overt bleeding and drop in H/ H. Status: Acute (2) Acute lower gastrointestinal bleeding Assessment & Plan: GI consulted (Dr. Guzman) ---> help appreciated Protonix: 40 mg IV Q12h Monitor H/H and observe for active bleeding. May also be due to trauma to surgical anastamosis. No plans for colonoscopy at this time in absence of acute drop in H/H or persistent bleeding. Status: Acute (3) Anxiety attack Assessment & Plan: Ativan 0.1mg once Psychiatry Consulty ( Dr. Payne) ---> Help appreciated Status: Acute (4) History of marijuana use Assessment & Plan: Psychiatry Consulted (Dr. Orozco) ---> Help appreciated Pending UDS Status: Chronic (5) History of cocaine use Assessment & Plan: Psychiatry Consulted (Dr. Orozco) ---> Help appreciated Pending UDS Status: Chronic (6) Prophylactic measure Assessment & Plan: DVT: SCDs GI: Protonix 40 mg IVP [id number] NS at 100 cc/hour Status: Acute
[2016-12-29 19:56] LABS: C DIFF TOXIN A B POSITIVE ANTIGEN (NEGATIVE)
[2016-12-29 21:57] LABS: FECAL LEUKOCYTES NEGATIVE (NEGATIVE)
[2016-12-29] MEDS ORDERED: Vancomycin 125 MG/5 ML SOLN (ORAL/RECTAL) PO SCH (22:00)
[2016-12-29] MEDS: Vancomycin 125 MG/5 ML SOLN (ORAL/RECTAL) PO SCH (22:49)
[2016-12-30] MEDS: Ciprofloxacin 400mg/200ml D5W 400 MG/200 ML BAG IVPB SCH (00:01)
[2016-12-30] MEDS: metroNIDAZOLE IV 500 mg/100 ml 500 MG/100 ML BAG IVPB SCH (05:09)
[2016-12-30] MEDS: Sodium Chloride 0.9% 1,000 ML IV SCH ×3 (06:16→17:03)
[2016-12-30 06:21] LABS: BENZODIAZEPINES, UR NEGATIVE (NEGATIVE)
[2016-12-30 06:22] LABS: BARBITURATES, UR NEGATIVE (NEGATIVE)
[2016-12-30 06:27] LABS: PHENCYCLIDINE, UR NEGATIVE (NEGATIVE)
[2016-12-30 06:46] LABS: OPIATES, UR POSITIVE (NEGATIVE)
[2016-12-30 07:33] LABS: BASO # 0.1 K/uL (0.0-0.2); BASO % 0.8 % (0.0-2.0); EOS # 0.2 K/uL (0.0-0.7); EOS % 2.1 % (0.0-4.0); HEMOGLOBIN 15.2 g/dL (12.0-18.0); LYMPH # 1.5 K/uL (1.0-4.3); LYMPH % 19.9 % (20.0-40.0); MEAN CELL VOLUME 90.1 fL (80.0-94.0); MEAN CORPUSCULAR HEMOGLOBIN 30.3 pg (27.0-31.0); MEAN CORPUSCULAR HGB CONC 33.7 g/dL (33.0-37.0); MEAN PLATELET VOLUME 10.8 fL (7.2-11.7); MONO # 0.6 K/uL (0.0-0.8); MONO % 7.7 % (0.0-10.0); NEUT # 5.2 K/uL (1.8-7.0); NEUT % 69.5 % (50.0-75.0); NRBC % 0.1 % (0.0-2.0); RBC 5.01 Mil/uL (4.40-5.90); RED CELL DISTRIBUTION WIDTH 13.5 % (11.5-14.5); WHITE BLOOD COUNT 7.5 K/uL (4.8-10.8)
[2016-12-30 07:52] LABS: ALBUMIN 3.8 g/dL (3.5-5.0)
[2016-12-30 07:54] LABS: GFR AFRICAN-AMERICAN > 60; GFR NON-AFRICAN AMERICAN > 60
[2016-12-30 07:55] LABS: ALB/GLOB RATIO 1.3 (1.0-2.1); ALT/SGPT 15 U/L (21-72); AST/SGOT 18 U/L (17-59); BLOOD UREA NITROGEN 8 mg/dL (9-20); CALCIUM 8.7 mg/dl (8.6-10.4)
[2016-12-30 07:56] LABS: MAGNESIUM 1.6 mg/dL (1.6-2.3)
--- NOTE | 2016-12-30 09:43 | CP.PCM.PN ---
Subjective - Date & Time of Evaluation Date of Evaluation: 12/30/16 Time of Evaluation: 09:40 - Subjective Subjective: Pain somewhat better, events of last pm noted and reviewed Stool C diff antigen + Objective - Vital Signs/Intake and Output Vital Signs (last 24 hours): Temp Pulse Resp BP Pulse Ox 98.2 F 57 L 20 142/84 98 12/30/16 07:15 12/30/16 07:15 12/30/16 07:15 12/30/16 07:15 12/30/16 07:15 Intake and Output: 12/30/16 12/30/16 06:59 18:59 Intake Total 1520 Balance 1520 - Medications Medications: Current Medications Sodium Chloride (Sodium Chloride 0.9%) 1,000 mls @ 100 mls/hr IV .Q10H [facility] Last Admin: 12/30/16 06:16 Dose: Not Given Ciprofloxacin (Cipro 400mg/200ml Dsw) 400 mg in 200 mls @ 133 mls/hr IVPB Q12H [facility] Last Admin: 12/30/16 00:01 Dose: 133 mls/hr Metronidazole (Flagyl) 500 mg in 100 mls @ 100 mls/hr IVPB Q8 [facility] Last Admin: 12/30/16 05:09 Dose: 100 mls/hr Morphine Sulfate (Morphine) 2 mg IVP Q6 PRN PRN Reason: Pain, severe (8-10) Last Admin: 12/30/16 06:29 Dose: 2 mg Ondansetron HCl (Zofran Inj) 4 mg IVP Q6 PRN PRN Reason: Nausea/Vomiting Last Admin: 12/29/16 14:05 Dose: 4 mg Pantoprazole Sodium (Protonix Inj) 40 mg IVP Q12H [facility] Last Admin: 12/30/16 05:10 Dose: 40 mg Pneumococcal Polyvalent Vaccine (Pneumovax 23 Vaccine) 0.5 ml IM .ONCE ONE Stop: 12/31/16 10:01 Vancomycin HCl (Vancocin (Oral Or Rectal Use)) 250 mg PO QID [facility] Last Admin: 12/29/16 22:49 Dose: 250 mg - Labs Labs: 12/30/16 07:18 12/30/16 07:18 PT 11.0 SECONDS (9.7-12.2) 12/28/16 18:45 INR 1.0 12/28/16 18:45 APTT 33 SECONDS (21-34) 12/28/16 18:45 - Head Exam Head Exam: NORMAL INSPECTION - Eye Exam Eye Exam: EOMI, PERRL - Respiratory Exam Respiratory Exam: NORMAL BREATHING PATTERN - Cardiovascular Exam Cardiovascular Exam: REGULAR RHYTHM, +S1 - GI/Abdominal Exam GI & Abdominal Exam: Guarding, Soft, Normal Bowel Sounds. absent: Tenderness - Extremities Exam Extremities Exam: Normal Inspection Assessment and Plan (1) Acute colitis Assessment & Plan: Possible C diff based on + antigen testing Flagyl po and D/C Cipro Status: Acute (2) Abnormal CT scan, colon Status: Acute (3) LLQ abdominal pain Status: Acute (4) Acute lower gastrointestinal bleeding Status: Acute (5) C. difficile colitis Assessment & Plan: Flagyl po for 10 days Status: Acute
[2016-12-30] MEDS: Vancomycin 125 MG/5 ML SOLN (ORAL/RECTAL) PO SCH ×4 (11:10→21:41)
--- NOTE | 2016-12-30 18:25 | CP.PCM.PN ---
Subjective - Date & Time of Evaluation Date of Evaluation: 12/30/16 Time of Evaluation: 07:45 - Subjective Subjective: Medicine Note (PGY1): Dr. Whitten's Service Patient was seen and examined at bedside. Patient states that he is doing better and has minimal pain. Patient had no acute event overnight. Patient continues to remain anxious. Patient continues to report nausea, mild vomiting, fatigue, mild abd pain localized to the site of his colostomy reversal but denies chest pain and SOB. Objective - Vital Signs/Intake and Output Vital Signs (last 24 hours): Temp Pulse Resp BP Pulse Ox 98.2 F 57 L 20 142/84 98 12/30/16 07:15 12/30/16 07:15 12/30/16 07:15 12/30/16 07:15 12/30/16 07:15 Intake and Output: 12/30/16 12/30/16 06:59 18:59 Intake Total 1520 480 Balance 1520 480 - Medications Medications: Current Medications Sodium Chloride (Sodium Chloride 0.9%) 1,000 mls @ 100 mls/hr IV .Q10H [facility] Last Admin: 12/30/16 17:03 Dose: Not Given Morphine Sulfate (Morphine) 2 mg IVP Q6 PRN PRN Reason: Pain, severe (8-10) Last Admin: 12/30/16 13:21 Dose: 2 mg Ondansetron HCl (Zofran Inj) 4 mg IVP Q6 PRN PRN Reason: Nausea/Vomiting Last Admin: 12/29/16 14:05 Dose: 4 mg Pneumococcal Polyvalent Vaccine (Pneumovax 23 Vaccine) 0.5 ml IM .ONCE ONE Stop: 12/31/16 10:01 Vancomycin HCl (Vancocin (Oral Or Rectal Use)) 250 mg PO QID [facility] Last Admin: 12/30/16 17:09 Dose: 250 mg - Labs Labs: 12/30/16 07:18 12/30/16 07:18 PT 11.0 SECONDS (9.7-12.2) 12/28/16 18:45 INR 1.0 12/28/16 18:45 APTT 33 SECONDS (21-34) 12/28/16 18:45 - Constitutional Appears: Well, No Acute Distress - Head Exam Head Exam: NORMAL INSPECTION, NORMOCEPHALIC - Eye Exam Eye Exam: EOMI, Normal appearance - ENT Exam ENT Exam: Mucous Membranes Moist, Normal Exam - Respiratory Exam Respiratory Exam: Clear to Ausculation Bilateral, NORMAL BREATHING PATTERN - Cardiovascular Exam Cardiovascular Exam: REGULAR RHYTHM, +S1, +S2 - GI/Abdominal Exam GI & Abdominal Exam: Soft, Normal Bowel Sounds - Extremities Exam Extremities Exam: Normal Capillary Refill, Normal Inspection - Neurological Exam Neurological Exam: Alert, Awake, Oriented x3 - Psychiatric Exam Psychiatric exam: Anxious - Skin Skin Exam: Dry, Normal Color, Warm Assessment and Plan (1) Acute colitis Assessment & Plan: CT abd/pelvis - Mural thickening and edema with surrounding inflammatory change is identified within the distal descending and sigmoid colons afebrile, no leukocytosis C. Diff A B Toxin : Positive 12/29/16, Placed on Vancomycin 250mg PO BID (12/29/16 ) Pending fecal leukocytes, ova and parasites Cipro 400mg IVPB Q12 hours (started 12/28) Flagyl 500mg IVPB Q8 hours (started 12/28) Morphine 2mg IVP Q6 prn pain Stool occult positive 12/28/16---> Hgb :15 and hematocrit: 45.6 AST/ALT 19/20 Alkaline phos : 53 Lipase - 81 GI consulted - Dr. Quezada, help appreciated - r/o GI bleed As per GI: Likely related to post op changes and trauma caused by patient lifting furniture prematurely. No clinical evidence of perforation. Exclude infectious etiology but doubt. Agree with stool studies Antibiotics per admitting team emperically Advance diet if clinically improved No plan for colonoscopy at this time in absence of overt bleeding and drop in H/ H. As per GI recommendation: Flagy for 10days and d/c ciprofloxacin Status: Acute (2) Acute lower gastrointestinal bleeding Assessment & Plan: GI consulted (Dr. Guzman) ---> help appreciated Protonix: 40 mg IV Q12h ----> d/c 12/30/16 due to positive C.diff Monitor H/H and observe for active bleeding. May also be due to trauma to surgical anastamosis. No plans for colonoscopy at this time in absence of acute drop in H/H or persistent bleeding. H/H stable at hemoglobin of 15 and Hematocrit of 45.6% Status: Acute Status: Acute (3) Anxiety attack Assessment & Plan: Ativan 0.1mg once Psychiatry Consulted ( Dr. Payne) ---> Help appreciated Status: Acute (4) History of marijuana use Assessment & Plan: Psychiatry Consulted (Dr. Orozco) ---> Help appreciated UDS : + for Cannabinoids Status: Chronic (5) History of cocaine use Assessment & Plan: Psychiatry Consulted (Dr. Orozco) ---> Help appreciated Pending UDS Status: Chronic (6) Prophylactic measure Assessment & Plan: DVT: SCDs GI: Protonix 40 mg IVP [id number] ---> D/C 12/30/16 due to positive C.Diff NS at 100 cc/hour Status: Acute
--- NOTE | 2016-12-30 19:40 | CP.PCM.CON ---
History of Present Illness - History of Present Illness History of Present Illness: 56 yo male with h/o perforated diverticulitis 2016 with colostomy/Hartmans and reversal of Hartmans' pouch 11/2016 after colonoscopy reported normal post op findings. Patient reports on Wednesday he helped friend lift heavy furniture and this was followed by lower abdominal pain. Now with bloody BM and diarrhea c diff + Past Patient History - Infectious Disease Hx of Infectious Diseases: None - Past Medical History & Family History Past Medical History?: Yes - Past Social History Smoking Status: Heavy Smoker > 10 Cigarettes Daily Alcohol: None Drugs: Other (former drug user) - CARDIAC Hx Cardiac Disorders: Yes - PULMONARY Hx Respiratory Disorders: No - NEUROLOGICAL Hx Neurological Disorder: Yes HX Cerebrovascular Accident: Yes (''4 years ago'') - HEENT Hx HEENT Problems: No - RENAL Hx Chronic Kidney Disease: No - ENDOCRINE/METABOLIC Hx Endocrine Disorders: No - HEMATOLOGICAL/ONCOLOGICAL Hx Blood Disorders: No Hx Cirrhosis: No Hx Hepatitis A: No Hx Hepatitis B: No Hx Hepatitis C: No Hx Human Immunodeficiency Virus (HIV): No - INTEGUMENTARY Hx Dermatological Problems: No - MUSCULOSKELETAL/RHEUMATOLOGICAL Hx Falls: No - GASTROINTESTINAL Hx Gastrointestinal Disorders: Yes Hx Bowel Surgery: Yes Hx Clostridium Difficile: No Hx Colitis: No Hx Colostomy: Yes (Reversal of colostomy 11/18) Hx Constipation: Yes Hx Crohn's Disease: No Hx Diarrhea: No Hx Diverticulitis: Yes (as above with perforation 2015) Hx Gastroesophageal Reflux: Yes Hx Hemorrhoids: Yes Hx Ileostomy: No Hx Irritable Bowel: No Hx Liver Failure: No Hx Nausea: No Hx Pancreatitis: No HX Swallowing Problems: No Hx Ulcer: No Hx Vomiting: No Other/Comment: H/O RUPTURED COLON DUE TO Diverticulitis 2016. Pt with left abdomen colostomy - GENITOURINARY/GYNECOLOGICAL Hx Genitourinary Disorders: No - PSYCHIATRIC Hx Substance Use: Yes (smokes marijuana) - SURGICAL HISTORY Hx Surgeries: Yes (SEE COMMENT) Other/Comment: LEFT INGUINAL HERNIA SX; colon resection and reversal 2016. - ANESTHESIA Hx Anesthesia: Yes Hx Anesthesia Reactions: No Hx Malignant Hyperthermia: No Has any member of the family had a problem w/ anesthesia?: No Meds Allergies/Adverse Reactions: Allergies Allergy/AdvReac Type Severity Reaction Status Date / Time No Known Allergies Allergy Verified 11/12/16 11:41 - Medications Medications: Current Medications Sodium Chloride (Sodium Chloride 0.9%) 1,000 mls @ 100 mls/hr IV .Q10H [facility] Last Admin: 12/30/16 17:03 Dose: Not Given Metronidazole (Flagyl) 250 mg in 50 mls @ 100 mls/hr IVPB Q8 [facility] Stop: 01/04/17 22:01 Morphine Sulfate (Morphine) 2 mg IVP Q6 PRN PRN Reason: Pain, severe (8-10) Last Admin: 12/30/16 13:21 Dose: 2 mg Ondansetron HCl (Zofran Inj) 4 mg IVP Q6 PRN PRN Reason: Nausea/Vomiting Last Admin: 12/29/16 14:05 Dose: 4 mg Pneumococcal Polyvalent Vaccine (Pneumovax 23 Vaccine) 0.5 ml IM .ONCE ONE Stop: 12/31/16 10:01 Vancomycin HCl (Vancocin (Oral Or Rectal Use)) 250 mg PO QID [facility] Last Admin: 12/30/16 17:09 Dose: 250 mg Results - Vital Signs Recent Vital Signs: Last Vital Signs Temp 98.2 F 12/30/16 07:15 Pulse 57 L 12/30/16 07:15 Resp 20 12/30/16 07:15 BP 142/84 12/30/16 07:15 Pulse Ox 98 12/30/16 07:15 - Labs Result Diagrams: 12/30/16 07:18 12/30/16 07:18 Labs: Laboratory Results - last 24 hr 12/29/16 12/30/16 12/30/16 00:13 06:03 07:18 WBC 7.5 RBC 5.01 Hgb 15.2 Hct 45.1 MCV 90.1 MCH 30.3 MCHC 33.7 RDW 13.5 Plt Count 188 MPV 10.8 Neut % (Auto) 69.5 Lymph % (Auto) 19.9 L [place] % (Auto) 7.7 Eos % (Auto) 2.1 Baso % (Auto) 0.8 Neut # 5.2 Lymph # 1.5 [place] # 0.6 Eos # 0.2 Baso # 0.1 Sodium Potassium Chloride Carbon Dioxide Anion Gap BUN Creatinine Est GFR ( Amer) Est GFR (Non-Af Amer) Random Glucose Calcium Phosphorus Magnesium Total Bilirubin AST ALT Alkaline Phosphatase Total Protein Albumin Globulin Albumin/Globulin Ratio Urine Opiates Screen Positive Urine Methadone Screen Negative Ur Barbiturates Screen Negative Ur Phencyclidine Scrn Negative Ur Amphetamines Screen Negative U Benzodiazepines Scrn Negative U Oth Cocaine Metabols Negative U Cannabinoids Screen Positive C. difficile Ag & Toxin Positive antigen 12/30/16 07:18 WBC RBC Hgb Hct MCV MCH MCHC RDW Plt Count MPV Neut % (Auto) Lymph % (Auto) [place] % (Auto) Eos % (Auto) Baso % (Auto) Neut # Lymph # [place] # Eos # Baso # Sodium 139 Potassium 3.6 Chloride 106 Carbon Dioxide 22 Anion Gap 14 BUN 8 L Creatinine 0.8 Est GFR ( Amer) > 60 Est GFR (Non-Af Amer) > 60 Random Glucose 94 Calcium 8.7 Phosphorus 3.3 Magnesium 1.6 Total Bilirubin 0.9 AST 18 ALT 15 L D Alkaline Phosphatase 58 Total Protein 6.7 Albumin 3.8 Globulin 3.0 Albumin/Globulin Ratio 1.3 Urine Opiates Screen Urine Methadone Screen Ur Barbiturates Screen Ur Phencyclidine Scrn Ur Amphetamines Screen U Benzodiazepines Scrn U Oth Cocaine Metabols U Cannabinoids Screen C. difficile Ag & Toxin
[2016-12-30] MEDS: metroNIDAZOLE IV 250mg/50 ml 250 MG/50 ML BAG IVPB SCH (21:43)
[2016-12-31] MEDS: Sodium Chloride 0.9% 1,000 ML IV SCH ×4 (00:36→22:35)
[2016-12-31] MEDS: metroNIDAZOLE IV 250mg/50 ml 250 MG/50 ML BAG IVPB SCH ×3 (06:18→21:00)
[2016-12-31 08:41] LABS: BASO # 0.1 K/uL (0.0-0.2); BASO % 0.9 % (0.0-2.0); EOS # 0.2 K/uL (0.0-0.7); EOS % 2.8 % (0.0-4.0); HEMOGLOBIN 14.4 g/dL (12.0-18.0); LYMPH # 1.3 K/uL (1.0-4.3); LYMPH % 22.6 % (20.0-40.0); MEAN CELL VOLUME 90.3 fL (80.0-94.0); MEAN CORPUSCULAR HGB CONC 33.3 g/dL (33.0-37.0); MEAN PLATELET VOLUME 10.9 fL (7.2-11.7); MONO # 0.4 K/uL (0.0-0.8); MONO % 7.4 % (0.0-10.0); NEUT # 3.8 K/uL (1.8-7.0); NEUT % 66.3 % (50.0-75.0); RBC 4.79 Mil/uL (4.40-5.90); WHITE BLOOD COUNT 5.8 K/uL (4.8-10.8)
[2016-12-31 08:51] LABS: ALBUMIN 3.4 g/dL (3.5-5.0)
[2016-12-31 08:54] LABS: AST/SGOT 15 U/L (17-59); GFR AFRICAN-AMERICAN > 60; GFR NON-AFRICAN AMERICAN > 60
[2016-12-31 08:55] LABS: ALB/GLOB RATIO 1.2 (1.0-2.1); ALT/SGPT 19 U/L (21-72); BLOOD UREA NITROGEN 9 mg/dL (9-20); CALCIUM 8.1 mg/dl (8.6-10.4); MAGNESIUM 1.8 mg/dL (1.6-2.3)
[2016-12-31] MEDS ORDERED: Pneumococcal 23-Valent Vaccine IM ONE (10:00)
[2016-12-31] MEDS: Vancomycin 125 MG/5 ML SOLN (ORAL/RECTAL) PO SCH ×4 (10:18→21:27)
--- NOTE | 2016-12-31 11:17 | PCM.PSYCH ---
Initial Psychiatric Evaluation - Initial Psychiatric Evaluation Type of Admission: Voluntary Legal Status: Capacity Chief Complaint (in patient's own words): Feeling fine History of Present Illness and Precipitating Events: This is a 56-year-old HM who is and currently lives with his and kids, with a long history of opioid dependence, cannabis dependence, came to the ED with abdominal pain. Today patient was consulted because of irritable and agitated behavior. Patient states a long history of abusing drugs. However he remained guarded about using heroin but reports of abusing marijuana on a daily basis. As per the staff patient remained irritable and agitated since admission. He reports of racing of thoughts, flight of ideas high energy and anxiety. He also reports poor sleep and poor appetite. Sometimes he feels depressed about his medical conditions but denies any feelings of hopelessness or helplessness. He denies any auditory or visual hallucinations or any psychotic symptoms. He denies any other substance abuse. He denies any withdrawal symptoms Past medical history H/O diverticulitis with colostomy bag Current Medications: Active Medications Generic Name Dose Route Start Last Admin Trade Name Freq PRN Reason Stop Dose Admin Sodium Chloride 1,000 mls @ 100 mls/hr 12/29/16 00:15 12/31/16 06:23 Sodium Chloride 0.9% IV Not Given .Q10H LYNNE Metronidazole 250 mg in 50 mls @ 100 mls/hr 12/30/16 22:00 12/31/16 06:18 Flagyl IVPB 01/04/17 22:01 100 mls/hr Q8 LYNNE Administration Morphine Sulfate 2 mg 12/29/16 00:55 12/30/16 13:21 Morphine IVP 2 mg Q6 PRN Administration Pain, severe (8-10) Ondansetron HCl 4 mg 12/29/16 00:02 12/29/16 14:05 Zofran Inj IVP 4 mg Q6 PRN Administration Nausea/Vomiting Vancomycin HCl 250 mg 12/29/16 22:00 12/31/16 10:18 Vancocin (Oral Or Rectal Use) PO 250 mg QID LYNNE Administration Past Psychiatric History - Past Psychiatric History Previous Treatment History: None Pertinent Medical Hx (Current Medical&Sleep Prob, Allergies): Allergies Allergy/AdvReac Type Severity Reaction Status Date / Time No Known Allergies Allergy Verified 11/12/16 11:41 No Known Home Med 10/28/16 Review of Systems - Review of Systems All systems: reviewed and no additional remarkable complaints except - Psychiatric Psychiatric: Anxiety, Irritability, Mood Swings Mental Status Examination - Personal Presentation Personal Presentation: Looks stated age - Affect Affect: Broad - Motor Activity Motor Activity: Psychomotor Agitation - Reliability in Providing Information Reliability in Providing Information: Good - Speech Speech: Organized - Mood Mood: Anxious - Formal Thought Process Formal Thought Process: Flight of ideas - Obsessions/Compulsions Obsessions: No Compulsions: No - Cognitive Functions Orientation: Person, Place, Situation, Time Sensorium: Alert Attention/Concentration: Attentive Abstract Thinking: [place] Estimate of Intelligence: Below average Judgement: Imparied, as evidence by: Lack of insight into illness, Intact, as evidence by: Good judgement - Risk Risk: Diminished functioning - Strength & Assets Inventory Strength & Assets Inventory: Family support DSM 5 DX - DSM 5 DSM 5 Diagnosis: Cannabis use disorder severe Opiate use disorder severe Bipolar disorder mixed moderate - Recommended/Plan of Treatment Treatment Recommendations and Plan of Treatment: Cannabis use disorder severe CBT Psychoeducation Use [facility] for abstinence Opiate use disorder severe CBT Psychoeducation Use [facility] for abstinence Bipolar disorder mixed moderate CBT Psychoeducation Supportive therapy, group therapy, individual therapy Depakote 250 mg by mouth twice a day Neurontin 100 mg by mouth 3 times a day Trazodone 50 mg by mouth daily at bedtime - Smoking Cessation Smoking Cessation Initiated: No
--- NOTE | 2016-12-31 13:31 | CP.PCM.PN ---
Subjective - Date & Time of Evaluation Date of Evaluation: 12/31/16 Time of Evaluation: 07:50 - Subjective Subjective: Medicine Note (PGY1): Dr. Whitten's Service Patient was seen and examined at bedside. Patient states that he is doing better and has minimal pain. Patient had no acute event overnight. Patient continues to remain anxious. Patient continues to report mild abd pain localized to the site of his colostomy reversal and diarrhea but denies chest pain, fever, chills, nausea, vomiting and SOB. Objective - Vital Signs/Intake and Output Vital Signs (last 24 hours): Temp Pulse Resp BP Pulse Ox 97.7 F 54 L 18 139/78 98 12/31/16 08:51 12/31/16 08:51 12/31/16 08:51 12/31/16 08:51 12/31/16 08:51 - Medications Medications: Current Medications Divalproex Sodium (Depakote Dr) 250 mg PO BID [facility] Gabapentin (Neurontin) 100 mg PO TID [facility] Last Admin: 12/31/16 13:06 Dose: 100 mg Hydroxyzine HCl (Atarax) 50 mg PO Q6 PRN PRN Reason: Agitation Sodium Chloride (Sodium Chloride 0.9%) 1,000 mls @ 100 mls/hr IV .Q10H [facility] Last Admin: 12/31/16 13:11 Dose: Not Given Metronidazole (Flagyl) 250 mg in 50 mls @ 100 mls/hr IVPB Q8 [facility] Stop: 01/04/17 22:01 Last Admin: 12/31/16 13:15 Dose: 100 mls/hr Morphine Sulfate (Morphine) 2 mg IVP Q6 PRN PRN Reason: Pain, severe (8-10) Last Admin: 12/31/16 13:06 Dose: 2 mg Ondansetron HCl (Zofran Inj) 4 mg IVP Q6 PRN PRN Reason: Nausea/Vomiting Last Admin: 12/29/16 14:05 Dose: 4 mg Trazodone HCl (Desyrel) 50 mg PO HS [facility] Vancomycin HCl (Vancocin (Oral Or Rectal Use)) 250 mg PO QID [facility] Last Admin: 12/31/16 13:06 Dose: 250 mg - Labs Labs: 12/31/16 08:28 12/31/16 08:28 PT 11.0 SECONDS (9.7-12.2) 12/28/16 18:45 INR 1.0 12/28/16 18:45 APTT 33 SECONDS (21-34) 12/28/16 18:45 - Constitutional Appears: Well, No Acute Distress - Head Exam Head Exam: NORMAL INSPECTION, NORMOCEPHALIC - Eye Exam Eye Exam: EOMI, Normal appearance - ENT Exam ENT Exam: Mucous Membranes Moist, Normal Exam - Respiratory Exam Respiratory Exam: Clear to Ausculation Bilateral, NORMAL BREATHING PATTERN - Cardiovascular Exam Cardiovascular Exam: REGULAR RHYTHM, +S1, +S2 - GI/Abdominal Exam GI & Abdominal Exam: Soft, Normal Bowel Sounds - Extremities Exam Extremities Exam: Normal Capillary Refill, Normal Inspection - Neurological Exam Neurological Exam: Alert, Awake, Oriented x3 - Psychiatric Exam Psychiatric exam: Anxious - Skin Skin Exam: Dry, Normal Color, Warm Assessment and Plan (1) Acute colitis Assessment & Plan: CT abd/pelvis - Mural thickening and edema with surrounding inflammatory change is identified within the distal descending and sigmoid colons afebrile, no leukocytosis C. Diff A B Toxin : Positive 12/29/16, Placed on Vancomycin 250mg PO BID (12/29/16 ) Negative for fecal leukocytes, ova and parasites Cipro 400mg IVPB Q12 hours (started 12/28) Flagyl 500mg IVPB Q8 hours (started 12/28) Morphine 2mg IVP Q6 prn pain Stool occult positive 12/28/16---> Hgb :15 and hematocrit: 45.6, Hgb (14.4) and hematocrit (43.2) - 12/31/16 AST/ALT 19/20 Alkaline phos : 53 Lipase - 81 GI consulted - Dr. Quezada, help appreciated - r/o GI bleed As per GI: Likely related to post op changes and trauma caused by patient lifting furniture prematurely. No clinical evidence of perforation. Exclude infectious etiology but doubt. Agree with stool studies Antibiotics per admitting team emperically Advance diet if clinically improved No plan for colonoscopy at this time in absence of overt bleeding and drop in H/ H. As per GI recommendation: Flagy for 10days and d/c ciprofloxacin Status: Acute (2) Acute lower gastrointestinal bleeding Assessment & Plan: GI consulted (Dr. Guzman) ---> help appreciated Protonix: 40 mg IV Q12h ----> d/c 12/30/16 due to positive C.diff Monitor H/H and observe for active bleeding. May also be due to trauma to surgical anastamosis. No plans for colonoscopy at this time in absence of acute drop in H/H or persistent bleeding. H/H stable at hemoglobin of 15 and Hematocrit of 45.6% and still remains stable Status: Acute (3) Anxiety attack Assessment & Plan: Ativan 1 mg IV once ---> switched to 1mg PO bid Psychiatry Consulted ( Dr. Payne) ---> Help appreciated Status: Acute (4) History of marijuana use Assessment & Plan: Psychiatry Consulted (Dr. Orozco) ---> Help appreciated UDS : + for Cannabinoids Status: Chronic (5) History of cocaine use Assessment & Plan: Psychiatry Consulted (Dr. Orozco) ---> Help appreciated Pending UDS Status: Chronic (6) Prophylactic measure Assessment & Plan: DVT: SCDs GI: Protonix 40 mg IVP [id number] ---> D/C 12/30/16 due to positive C.Diff NS at 100 cc/hour Status: Acute
[2016-12-31] MEDS: Divalproex 250 mg DR Tab PO SCH ×2 (15:21→18:20)
[2016-12-31 16:44] VITALS: RESP 20
[2017-01-01] MEDS: metroNIDAZOLE IV 250mg/50 ml 250 MG/50 ML BAG IVPB SCH (05:59)
[2017-01-01 08:06] LABS: EOS # 0.2 K/uL (0.0-0.7); EOS % 4.8 % (0.0-4.0); HEMOGLOBIN 13.6 g/dL (12.0-18.0); LYMPH # 1.4 K/uL (1.0-4.3); LYMPH % 29.8 % (20.0-40.0); MEAN CELL VOLUME 90.4 fL (80.0-94.0); MEAN CORPUSCULAR HEMOGLOBIN 29.8 pg (27.0-31.0); MEAN PLATELET VOLUME 11.1 fL (7.2-11.7); MONO # 0.4 K/uL (0.0-0.8); MONO % 8.3 % (0.0-10.0); NEUT # 2.7 K/uL (1.8-7.0); NEUT % 56.1 % (50.0-75.0); NRBC % 0.1 % (0.0-2.0); RBC 4.56 Mil/uL (4.40-5.90); RED CELL DISTRIBUTION WIDTH 13.4 % (11.5-14.5); WHITE BLOOD COUNT 4.8 K/uL (4.8-10.8)
[2017-01-01 08:16] LABS: ALBUMIN 3.2 g/dL (3.5-5.0)
[2017-01-01 08:19] VITALS: BP 125/79; PULSE 55; TEMP 98; O2SAT 97
[2017-01-01 08:19] LABS: ALB/GLOB RATIO 1.1 (1.0-2.1); ALT/SGPT 26 U/L (21-72); AST/SGOT 17 U/L (17-59); BLOOD UREA NITROGEN 11 mg/dL (9-20); GFR AFRICAN-AMERICAN > 60; GFR NON-AFRICAN AMERICAN > 60
[2017-01-01 08:20] LABS: CALCIUM 7.9 mg/dl (8.6-10.4); MAGNESIUM 1.6 mg/dL (1.6-2.3)
[2017-01-01] MEDS: Vancomycin 125 MG/5 ML SOLN (ORAL/RECTAL) PO SCH ×2 (10:14→13:15)
[2017-01-01] MEDS: Divalproex 250 mg DR Tab PO SCH (10:14)
[2017-01-01] MEDS: Sodium Chloride 0.9% 1,000 ML IV SCH (13:18)
--- NOTE | 2017-01-01 14:37 | CP.PCM.PN ---
Subjective - Date & Time of Evaluation Date of Evaluation: 01/01/17 Time of Evaluation: 14:34 - Subjective Subjective: Still c/o pain around colostomy scar, no diarrhea or bleeding Objective - Vital Signs/Intake and Output Vital Signs (last 24 hours): Temp Pulse Resp BP Pulse Ox 98.0 F 55 L 20 125/79 97 01/01/17 08:18 01/01/17 08:18 01/01/17 08:18 01/01/17 08:18 01/01/17 08:18 - Medications Medications: Current Medications Divalproex Sodium (Depakote Dr) 250 mg PO BID [facility] Last Admin: 01/01/17 10:14 Dose: 250 mg Gabapentin (Neurontin) 100 mg PO TID [facility] Last Admin: 01/01/17 13:14 Dose: 100 mg Hydroxyzine HCl (Atarax) 50 mg PO Q6 PRN PRN Reason: Agitation Sodium Chloride (Sodium Chloride 0.9%) 1,000 mls @ 100 mls/hr IV .Q10H [facility] Last Admin: 01/01/17 13:18 Dose: Not Given Metronidazole (Flagyl) 250 mg in 50 mls @ 100 mls/hr IVPB Q8 [facility] Stop: 01/04/17 22:01 Last Admin: 01/01/17 05:59 Dose: 100 mls/hr Lorazepam (Ativan) 1 mg PO BID [facility] Last Admin: 01/01/17 10:14 Dose: 1 mg Morphine Sulfate (Morphine) 2 mg IVP Q6 PRN PRN Reason: Pain, severe (8-10) Last Admin: 01/01/17 13:15 Dose: 2 mg Ondansetron HCl (Zofran Inj) 4 mg IVP Q6 PRN PRN Reason: Nausea/Vomiting Last Admin: 12/29/16 14:05 Dose: 4 mg Trazodone HCl (Desyrel) 50 mg PO HS [facility] Last Admin: 12/31/16 21:29 Dose: Not Given Vancomycin HCl (Vancocin (Oral Or Rectal Use)) 250 mg PO QID [facility] Last Admin: 01/01/17 13:15 Dose: 250 mg - Labs Labs: 01/01/17 07:54 01/01/17 07:54 PT 11.0 SECONDS (9.7-12.2) 12/28/16 18:45 INR 1.0 12/28/16 18:45 APTT 33 SECONDS (21-34) 12/28/16 18:45 - Constitutional Appears: No Acute Distress - Head Exam Head Exam: ATRAUMATIC, NORMOCEPHALIC - Eye Exam Eye Exam: EOMI, PERRL - Respiratory Exam Respiratory Exam: Clear to Ausculation Bilateral, NORMAL BREATHING PATTERN - Cardiovascular Exam Cardiovascular Exam: REGULAR RHYTHM - GI/Abdominal Exam GI & Abdominal Exam: Guarding, Soft, Normal Bowel Sounds. absent: Tenderness - Extremities Exam Extremities Exam: Normal Inspection Assessment and Plan (1) Acute colitis Assessment & Plan: Consider repeat CT Scan Discharge planning if able to tolerate diet Status: Acute (2) Abnormal CT scan, colon Assessment & Plan: as above Status: Acute (3) LLQ abdominal pain Status: Acute (4) Acute lower gastrointestinal bleeding Status: Resolved (5) C. difficile colitis Assessment & Plan: ID consultation pending On Flagyl for 10 days Observation and repeat stools after completion of therapy Status: Acute
--- NOTE | 2017-01-01 16:53 | CP.PCM.DIS ---
Provider - Provider Date of Admission: 12/28/16 23:29 Attending physician: Jacobo Whitten MD Time Spent in preparation of Discharge (in minutes): 45 Diagnosis - Discharge Diagnosis (1) Acute colitis Status: Acute (2) Anxiety attack Status: Acute Hospital Course - Lab Results Lab Results: Micro Results 12/29/16 11:30 Stool Stool Culture - Final NO SALMONELLA, SHIGELLA OR CAMPYLOBACTER ISOLATED. 12/29/16 11:30 Stool Ova and Parasite Concentrate Exam - Final Most Recent Lab Values WBC 4.8 K/uL (4.8-10.8) 01/01/17 07:54 RBC 4.56 Mil/uL (4.40-5.90) 01/01/17 07:54 Hgb 13.6 g/dL (12.0-18.0) 01/01/17 07:54 Hct 41.3 % (35.0-51.0) 01/01/17 07:54 MCV 90.4 fL (80.0-94.0) 01/01/17 07:54 MCH 29.8 pg (27.0-31.0) 01/01/17 07:54 MCHC 33.0 g/dL (33.0-37.0) 01/01/17 07:54 RDW 13.4 % (11.5-14.5) 01/01/17 07:54 Plt Count 168 K/uL (130-400) 01/01/17 07:54 MPV 11.1 fL (7.2-11.7) 01/01/17 07:54 Neut % (Auto) 56.1 % (50.0-75.0) 01/01/17 07:54 Lymph % (Auto) 29.8 % (20.0-40.0) 01/01/17 07:54 [place] % (Auto) 8.3 % (0.0-10.0) 01/01/17 07:54 Eos % (Auto) 4.8 % (0.0-4.0) H 01/01/17 07:54 Baso % (Auto) 1.0 % (0.0-2.0) 01/01/17 07:54 Neut # 2.7 K/uL (1.8-7.0) 01/01/17 07:54 Lymph # 1.4 K/uL (1.0-4.3) 01/01/17 07:54 [place] # 0.4 K/uL (0.0-0.8) 01/01/17 07:54 Eos # 0.2 K/uL (0.0-0.7) 01/01/17 07:54 Baso # 0.0 K/uL (0.0-0.2) 01/01/17 07:54 PT 11.0 SECONDS (9.7-12.2) 12/28/16 18:45 INR 1.0 12/28/16 18:45 APTT 33 SECONDS (21-34) 12/28/16 18:45 Sodium 138 mmol/L (132-148) 01/01/17 07:54 Potassium 4.0 mmol/L (3.6-5.2) 01/01/17 07:54 Chloride 105 mmol/L (98-107) 01/01/17 07:54 Carbon Dioxide 24 mmol/L (22-30) 01/01/17 07:54 Anion Gap 13 (10-20) 01/01/17 07:54 BUN 11 mg/dL (9-20) 01/01/17 07:54 Creatinine 0.7 MG/DL (0.8-1.5) L 01/01/17 07:54 Est GFR ( Amer) > 60 01/01/17 07:54 Est GFR (Non-Af Amer) > 60 01/01/17 07:54 Random Glucose 88 mg/dL (75-110) 01/01/17 07:54 Calcium 7.9 mg/dl (8.6-10.4) L 01/01/17 07:54 Phosphorus 3.0 mg/dL (2.5-4.5) 01/01/17 07:54 Magnesium 1.6 mg/dL (1.6-2.3) 01/01/17 07:54 Total Bilirubin 0.4 mg/dL (0.2-1.3) 01/01/17 07:54 AST 17 U/L (17-59) 01/01/17 07:54 ALT 26 U/L (21-72) 01/01/17 07:54 Alkaline Phosphatase 45 U/L (38-126) 01/01/17 07:54 Total Protein 6.0 g/dL (6.3-8.3) L 01/01/17 07:54 Albumin 3.2 g/dL (3.5-5.0) L 01/01/17 07:54 Globulin 2.8 gm/dL (2.2-3.9) 01/01/17 07:54 Albumin/Globulin Ratio 1.1 (1.0-2.1) 01/01/17 07:54 Lipase 81 U/L (23-300) 12/28/16 18:45 Urine Color Straw (YELLOW) 12/29/16 07:31 Urine Clarity Clear (Clear) 12/29/16 07:31 Urine pH 5.0 (5.0-8.0) 12/29/16 07:31 Ur Specific [place] 1.024 (1.003-1.030) 12/29/16 07:31 Urine Protein Negative mg/dL (NEGATIVE) 12/29/16 07:31 Urine Glucose (UA) Normal mg/dL (Normal) 12/29/16 07:31 Urine Ketones Negative mg/dL (NEGATIVE) 12/29/16 07:31 Urine Blood Negative (NEGATIVE) 12/29/16 07:31 Urine Nitrate Negative (NEGATIVE) 12/29/16 07:31 Urine Bilirubin Negative (NEGATIVE) 12/29/16 07:31 Urine Urobilinogen Normal mg/dL (0.2-1.0) 12/29/16 07:31 Ur Leukocyte Esterase Neg Deondre/uL (Negative) 12/29/16 07:31 Urine WBC (Auto) < 1 /hpf (0-5) 12/29/16 07:31 Stool Occult Blood Positive (NEGATIVE) H 12/28/16 20:13 Stool Leukocytes, Qual Negative (NEGATIVE) 12/29/16 00:13 Urine Opiates Screen Positive (NEGATIVE) 12/30/16 06:03 Urine Methadone Screen Negative (NEGATIVE) 12/30/16 06:03 Ur Barbiturates Screen Negative (NEGATIVE) 12/30/16 06:03 Ur Phencyclidine Scrn Negative (NEGATIVE) 12/30/16 06:03 Ur Amphetamines Screen Negative (NEGATIVE) 12/30/16 06:03 U Benzodiazepines Scrn Negative (NEGATIVE) 12/30/16 06:03 U Oth Cocaine Metabols Negative (NEGATIVE) 12/30/16 06:03 U Cannabinoids Screen Positive (NEGATIVE) 12/30/16 06:03 C. difficile Ag & Toxin Positive antigen (NEGATIVE) 12/29/16 00:13 Blood Type A NEGATIVE 12/28/16 18:45 Antibody Screen Negative 12/28/16 18:45 - Hospital Course Hospital Course: As per admission: HPI: Patient is a 55 y/o male with a PMHx of cocaine and marijuana abuse and CVA (6 years ago), perforated diverticulitis with colostomy bad and reversal on last admission in November 2016 who presents to the ED with abdominal pain. He reports that the pain started this morning when he woke up. It is crampy in nature and has been constant since this morning. It does not radiate. Patient states nothing makes the pain feel better. He states that he feels as if he has to have a bowel movement but he was not able to until 1:30 this afternoon. He reports that this BM was liquid and brown in color. At 5:00 he reports he had a BM that was a large amount of bright red blood in the toilet and this prompted his er visit today. He felt as if he had to move his bowels all day. Patient also stated he had another episode of a bloody BM while in the ED and he showed the staff. Per the ED attending the BM was soft and brown with trace blood. Patient reports mild dizziness and states that he felt weak today. He denied chest pain, shortness of breath, nausea, and vomiting Hospital Course: Patient admitted and a CT of abd/pelvis was administered, which showed mural thickening and edema with surrounding inflammatory change is identified within the distal descending and sigmoid colons. Patient was then started on IV antibiotics and a GI consult was placed to Dr. Julien to rule out a GI bleed. Based on imaging, Dr. Julien observed no clinical evidence of perforation and agreed with the recommendation of stool studies. Stool studies confirmed the diagnosis of acute colitis due to Clostridium difficile infection. Patient was medically managed on antibiotics and monitored. Discharge Exam - Head Exam Head Exam: ATRAUMATIC, NORMOCEPHALIC - Eye Exam Eye Exam: EOMI, Normal appearance - ENT Exam ENT Exam: Mucous Membranes Moist, Normal Exam - Respiratory Exam Respiratory Exam: Clear to PA & Lateral, NORMAL BREATHING PATTERN - Cardiovascular Exam Cardiovascular Exam: REGULAR RHYTHM, +S1, +S2 - GI/Abdominal Exam GI & Abdominal Exam: Normal Bowel Sounds, Soft - Neurological Exam Neurological exam: Alert, Normal Gait, Oriented x3 - Psychiatric Exam Psychiatric exam: Normal Affect, Normal Mood - Skin Skin Exam: Dry, Normal Color, Warm Discharge Plan - Discharge Medications Prescriptions: Metronidazole [Flagyl] 500 mg PO Q8H #63 tablet Vancomycin HCl [Vancocin HCl] 250 mg PO QID #40 capsule - Follow Up Plan Condition: FAIR Disposition: HOME/ ROUTINE Instructions: Metronidazole (By mouth), Vancomycin (By mouth), Clostridium Difficile Infection (DC), Clostridium Difficile Infection (GEN), How To Wash Your Hands (DC), How To Wash Your Hands (GEN) Additional Instructions: Discharge patient to home. Please take the following new medications as prescribed: Vancocin 250 mg four times a day for 10 days Flagyl 500 mg every 8 hours for 21 days Follow up with your doctor Dr. Miles within one week of discharge. Return to the emergency room if symptoms return. Instructions explained to patient. Patient understands agrees. Referrals: Jacobo Whitten MD [Staff Provider] - Kwesi Abraham MD [Staff Provider] - Seng Quezada MD [Staff Provider] -
== END 2017-01-01 15:39 | disposition home or self-care (01) | DRG 895 ==
LOC: C.ER 17:32 → C.9E 23:29 → C.3T 23:55 → C.5T 12-30 06:21
PROVIDERS: ADMIT Family Medicine; ATTEND Internal Medicine
PROC: GZ56ZZZ Individual Psychotherapy, Supportive (ICD-10-PCS; principal; 2016-12-28)
PROC: GZHZZZZ Group Psychotherapy (ICD-10-PCS; 2016-12-28)
DX: A04.7 Enterocolitis due to Clostridium difficile (principal); F31.62 Bipolar disorder, current episode mixed, moderate; F11.90 Opioid use, unspecified, uncomplicated; F12.10 Cannabis abuse, uncomplicated; F17.210 Nicotine dependence, cigarettes, uncomplicated; F41.1 Generalized anxiety disorder; K21.9 Gastro-esophageal reflux disease without esophagitis

== ENCOUNTER 2017-10-25 10:54 | Emergency (ER) | payer OTHER ==
[2017-10-25 10:54] VITALS: BMI 28.6
[2017-10-25 11:24] VITALS: BP 125/84; PULSE 60; RESP 18; TEMP 97.8; O2SAT 99
[2017-10-25 12:22] LABS: BASO % 0.8 % (0.0-2.0); EOS # 0.1 K/uL (0.0-0.7); EOS % 1.9 % (0.0-4.0); HEMOGLOBIN 14.8 g/dL (12.0-18.0); LYMPH # 1.5 K/uL (1.0-4.3); LYMPH % 31.7 % (20.0-40.0); MEAN CELL VOLUME 90.4 fL (80.0-94.0); MEAN CORPUSCULAR HEMOGLOBIN 30.6 pg (27.0-31.0); MEAN CORPUSCULAR HGB CONC 33.8 g/dL (33.0-37.0); MEAN PLATELET VOLUME 10.7 fL (7.2-11.7); MONO # 0.3 K/uL (0.0-0.8); MONO % 6.4 % (0.0-10.0); NEUT # 2.8 K/uL (1.8-7.0); NEUT % 59.2 % (50.0-75.0); NRBC % 0.1 % (0.0-2.0); RBC 4.84 Mil/uL (4.40-5.90); RED CELL DISTRIBUTION WIDTH 13.4 % (11.5-14.5); WHITE BLOOD COUNT 4.7 K/uL (4.8-10.8)
[2017-10-25 12:25] LABS: URINE BILIRUBIN NEGATIVE (NEGATIVE); URINE BLOOD NEGATIVE (NEGATIVE); URINE CLARITY Clear (Clear); URINE COLOR Yellow (YELLOW); URINE GLUCOSE (UA) NORMAL (Normal); URINE LEUKOCYTE ESTERASE NEG Leu/uL (Negative); URINE PROTEIN NEGATIVE (NEGATIVE); URINE UROBILINOGEN NORMAL mg/dL (0.2-1.0)
[2017-10-25] MEDS ORDERED: Iohexol 240 (50 ml) ONE (12:32)
[2017-10-25 12:45] LABS: ALB/GLOB RATIO 1.4 (1.0-2.1); ALT/SGPT 19 U/L (21-72); AST/SGOT 21 U/L (17-59); BLOOD UREA NITROGEN 16 mg/dL (9-20); CALCIUM 8.3 mg/dl (8.6-10.4); GFR AFRICAN-AMERICAN > 60; GFR NON-AFRICAN AMERICAN > 60; LIPASE 161 U/L (23-300)
--- NOTE | 2017-10-25 12:55 | C.PDOC ---
History Of Present Illness 57-year-old male, presents to the emergency department with complaints of abdominal pain that started one week ago. Associated symptoms include testicular pain and swelling, which worsens with walking. Patient has a Hx of colostomy, and reversal surgery one year ago. Denies nausea/vomiting, fevers, chills, dysuria, chest pain, shortness of breath or any other associated symptoms. No other complaints at this time. Time Seen by Provider: 10/25/17 11:48 Chief Complaint (Nursing): Abdominal Pain History Per: Patient History/Exam Limitations: no limitations Current Symptoms Are (Timing): Still Present Severity: Moderate Past Medical History Reviewed: Historical Data, Nursing Documentation, Vital Signs Vital Signs: Last Vital Signs Temp 97.8 F 10/25/17 11:23 Pulse 60 10/25/17 11:23 Resp 18 10/25/17 11:23 BP 125/84 10/25/17 11:23 Pulse Ox 99 10/25/17 15:08 - Medical History PMH: Anxiety, Depression, Diverticulitis (as above with perforation 2016) Denies: Crohn's Disease, HIV, Pancreatitis, Chronic Kidney Disease - [facility] Procedures BYPASS SIGMOID COLON TO CUTANEOUS, OPEN APPROACH (05/11/16) DRAINAGE OF LEFT MAIN BRONCHUS, ENDO, DIAGN (11/12/16) GROUP PSYCHOTHERAPY (12/28/16) INDIVIDUAL PSYCHOTHERAPY, SUPPORTIVE (12/28/16) REPAIR RECTUM, OPEN APPROACH (11/12/16) RESECTION OF SIGMOID COLON, OPEN APPROACH (05/11/16) Family History: States: No Known Family Hx - Social History Hx Alcohol Use: Yes Hx Substance Use: Yes (smokes marijuana) - Immunization History Hx Tetanus Toxoid Vaccination: No Hx Influenza Vaccination: No Hx Pneumococcal Vaccination: No Review Of Systems Constitutional: Negative for: Fever Cardiovascular: Negative for: Chest Pain Respiratory: Negative for: Shortness of Breath Gastrointestinal: Positive for: Abdominal Pain. Negative for: Vomiting Genitourinary: Positive for: Other (testicular pain). Negative for: Dysuria, Hematuria Skin: Negative for: Rash Physical Exam - Physical Exam Appears: Non-toxic, No Acute Distress Skin: Normal Color, Warm, Dry, No Rash Head: Normacephalic Eye(s): bilateral: PERRL Nose: Normal Oral Mucosa: Moist Lips: Normal Appearing Neck: Normal ROM Cardiovascular: Rhythm Regular, No Murmur Respiratory: Normal Breath Sounds, No Accessory Muscle Use Gastrointestinal/Abdominal: Bowel Sounds ((+)), Soft, Tenderness (diffuse), No Guarding, No Rebound Male Genital: No Circumcised, Other (B/L testicular distention) Extremity: Normal ROM, No Deformity, No Swelling Neurological/Psych: Oriented x3, Normal Speech ED Course And Treatment - Laboratory Results Result Diagrams: 10/25/17 12:18 10/25/17 12:18 O2 Sat by Pulse Oximetry: 99 Medical Decision Making Medical Decision Making: Plan: CT Abd/Pel Labs Pepcid, IVF, Zofran UA Reassess and Disposition abd. pain - patient states improvement, no further pain, reviewed labs and ct scan. Will discharge patient home and advised follow up with pmd in 2 days. Disposition Counseled Patient/Family Regarding: Studies Performed, Diagnosis, Need For Followup, Rx Given - Disposition Disposition: HOME/ ROUTINE Disposition Time: 15:06 Condition: GOOD Additional Instructions: follow up with your doctor in 2 days call to make an appointment take medications as needed for pain return to ER if symptoms worsens or progress Prescriptions: Famotidine [Pepcid] 20 mg PO BID #20 tab Ondansetron ODT [Zofran ODT] 4 mg PO TID PRN #12 odt PRN Reason: Nausea/Vomiting Instructions: Acute Abdomen (Belly Pain), Adult (DC) Forms: General Discharge Instructions, [facility] (Korean) - Clinical Impression Clinical Impression: Abdominal pain - Scribe Statement The provider has reviewed the documentation as recorded by the Scribe (Esdras Mike) All medical record entries made by the Scribe were at my direction and personally dictated by me. I have reviewed the chart and agree that the record accurately reflects my personal performance of the history, physical exam, medical decision making, and the department course for this patient. I have also personally directed, reviewed, and agree with the discharge instructions and disposition.
[2017-10-25] MEDS ORDERED: Iodixanol 320 MG/ML 100 ML BOTTLE IV ONE (14:08)
--- NOTE | 2017-10-25 14:50 | CT ---
PROCEDURE: CT Abdomen and Pelvis with contrast HISTORY: abd pain COMPARISON: None. TECHNIQUE: Contrast dose: 05/12/2017 Radiation dose: Total exam DLP = 1005.10 mGy-cm. This CT exam was performed using one or more of the following dose reduction techniques: Automated exposure control, adjustment of the mA and/or kV according to patient size, and/or use of iterative reconstruction technique. FINDINGS: LOWER THORAX: Unremarkable. LIVER: Unremarkable. No gross lesion or ductal dilatation. GALLBLADDER AND BILE DUCTS: Unremarkable. PANCREAS: Unremarkable. No gross lesion or ductal dilatation. SPLEEN: Unremarkable. ADRENALS: Unremarkable. No mass. KIDNEYS AND URETERS: Unremarkable. No hydronephrosis. No solid mass. VASCULATURE: Unremarkable. No aortic aneurysm. BOWEL: Status post colonic resection with rectosigmoid anastomosis. No bowel obstruction. No other abnormal bowel loops. APPENDIX: Normal appendix. PERITONEUM: Unremarkable. No free fluid. No free air. LYMPH NODES: Unremarkable. No enlarged lymph nodes. BLADDER: Unremarkable. REPRODUCTIVE: Normal prostate BONES: No acute fracture. OTHER FINDINGS: None. IMPRESSION: No acute abnormality. Old partial colonic resection. Otherwise unremarkable.
== END 2017-10-25 15:35 | disposition home or self-care (01) ==
LOC: C.ER 10:54
DX: R10.9 Unspecified abdominal pain (principal)
CPT/HCPCS: 74177; 80053; 81001; 83690; 85025; 96374; 96375; 99285; J1885; J2405; Q9967

== ENCOUNTER 2017-11-04 10:48 | Observation (INO) | payer OTHER ==
[2017-11-04 10:48] VITALS: BMI 28.6
[2017-11-04 11:42] LABS: BASO % 0.7 % (0.0-2.0); EOS # 0.1 K/uL (0.0-0.7); EOS % 1.9 % (0.0-4.0); LYMPH # 1.5 K/uL (1.0-4.3); LYMPH % 24.5 % (20.0-40.0); MEAN CORPUSCULAR HEMOGLOBIN 31.2 pg (27.0-31.0); MEAN CORPUSCULAR HGB CONC 34.7 g/dL (33.0-37.0); MEAN PLATELET VOLUME 10.5 fL (7.2-11.7); MONO # 0.4 K/uL (0.0-0.8); MONO % 5.9 % (0.0-10.0); NEUT # 4.2 K/uL (1.8-7.0); NRBC % 0.1 % (0.0-2.0); RBC 4.81 Mil/uL (4.40-5.90); RED CELL DISTRIBUTION WIDTH 13.5 % (11.5-14.5); WHITE BLOOD COUNT 6.2 K/uL (4.8-10.8)
[2017-11-04 11:57] LABS: SQUAMOUS EPITHIAL < 1 /hpf (0-5); URINE BILIRUBIN NEGATIVE (NEGATIVE); URINE BLOOD NEGATIVE (NEGATIVE); URINE CLARITY Clear (Clear); URINE COLOR Yellow (YELLOW); URINE GLUCOSE (UA) NORMAL (Normal); URINE LEUKOCYTE ESTERASE NEG Leu/uL (Negative); URINE PROTEIN NEGATIVE (NEGATIVE); URINE UROBILINOGEN NORMAL mg/dL (0.2-1.0)
[2017-11-04 11:59] LABS: ALB/GLOB RATIO 1.3 (1.0-2.1); ALBUMIN 3.9 g/dL (3.5-5.0); ALT/SGPT 16 U/L (21-72); AST/SGOT 20 U/L (17-59); BLOOD UREA NITROGEN 13 mg/dL (9-20); CALCIUM 8.9 mg/dl (8.6-10.4); GFR AFRICAN-AMERICAN > 60; GFR NON-AFRICAN AMERICAN > 60; LIPASE 101 U/L (23-300)
--- NOTE | 2017-11-04 12:37 | RAD ---
PROCEDURE: Radiographs of the chest and abdomen (obstructive series) HISTORY: Abdominal pain COMPARISON: No prior. TECHNIQUE: AP radiograph of the chest, with upright and supine radiographs of the abdomen. FINDINGS: CHEST: Lungs: The lungs are well inflated and clear. Cardiovascular: Normal size heart. No pulmonary vascular congestion. Pleura: No pleural fluid. No pneumothorax. Other findings: None. ABDOMEN AND PELVIS: Bowel: There is large amount of stool in the colon. The bowel gas pattern is nonspecific. Free air: None. Bones: Unremarkable. Other findings: None. IMPRESSION: Constipation. Nonobstructive bowel gas pattern. Clear lungs.
[2017-11-04] MEDS ORDERED: POLYETHYLENE GLYCOL 3350 17 GM/Dose PACKET PO STA (12:39)
--- NOTE | 2017-11-04 12:42 | C.PDOC ---
History Of Present Illness 56 y/o male presents to the ER complaining of abdominal pain. Patient was evaluated in [facility] by me on 10/25/17. He had a CT which was negative and he was discharged home. Patient was evaluated by his PMD on 11/02.He has returned to the ER today for ongoing abdominal pain. He states that he feels constipated. Denies having nausea, vomiting, and diarrhea.Patient has history of colostomy and reversal. Time Seen by Provider: 11/04/17 11:15 Chief Complaint (Nursing): Abdominal Pain History Per: Patient History/Exam Limitations: no limitations Onset/Duration Of Symptoms: Days Current Symptoms Are (Timing): Still Present Severity: Moderate Associated Symptoms: denies: Fever, Chills Past Medical History Reviewed: Historical Data, Nursing Documentation, Vital Signs Vital Signs: Last Vital Signs Temp 98.1 F 11/04/17 10:54 Pulse 69 11/04/17 10:54 Resp 20 11/04/17 10:54 BP 142/82 11/04/17 10:54 Pulse Ox 98 11/04/17 13:14 - Medical History PMH: Anxiety, Depression, Diverticulitis (as above with perforation 2016) Denies: Crohn's Disease, HIV, Pancreatitis, Chronic Kidney Disease - [facility] Procedures BYPASS SIGMOID COLON TO CUTANEOUS, OPEN APPROACH (05/11/16) DRAINAGE OF LEFT MAIN BRONCHUS, ENDO, DIAGN (11/12/16) GROUP PSYCHOTHERAPY (12/28/16) INDIVIDUAL PSYCHOTHERAPY, SUPPORTIVE (12/28/16) REPAIR RECTUM, OPEN APPROACH (11/12/16) RESECTION OF SIGMOID COLON, OPEN APPROACH (05/11/16) Family History: States: Unknown Family Hx - Social History Hx Alcohol Use: Yes Hx Substance Use: Yes (smokes marijuana) - Immunization History Hx Tetanus Toxoid Vaccination: No Hx Influenza Vaccination: No Hx Pneumococcal Vaccination: No Review Of Systems Except As Marked, All Systems Reviewed And Found Negative. Constitutional: Negative for: Fever, Chills Gastrointestinal: Positive for: Abdominal Pain, Constipation. Negative for: Nausea, Vomiting, Diarrhea Physical Exam - Physical Exam Appears: Non-toxic, No Acute Distress Skin: Normal Color, Warm, Dry Head: Atraumatic, Normacephalic Eye(s): bilateral: Normal Inspection Nose: Normal Oral Mucosa: Moist Neck: Supple Chest: Symmetrical Cardiovascular: Rhythm Regular Respiratory: Normal Breath Sounds, No Rales, No Rhonchi, No Wheezing Gastrointestinal/Abdominal: Bowel Sounds ((+) bowel sounds), Soft, Tenderness ( diffuse tenderness), No Guarding, No Rebound, Other (well- healed surgical scars ) Neurological/Psych: Oriented x3, Normal Speech ED Course And Treatment - Laboratory Results Result Diagrams: 11/04/17 11:38 11/04/17 11:38 O2 Sat by Pulse Oximetry: 98 (RA) Pulse Ox Interpretation: Normal - Other Rad X-Ray Abdomen Obs. Series X-Ray: Viewed By Me, Read By Radiologist Interpretation: PROCEDURE: Radiographs of the chest and abdomen (obstructive series). HISTORY: Abdominal pain. COMPARISON: No prior. TECHNIQUE: AP radiograph of the chest, with upright and supine radiographs of the abdomen. FINDINGS: CHEST: Lungs: The lungs are well inflated and clear. Cardiovascular : Normal size heart. No pulmonary vascular congestion. Pleura: No pleural fluid. No pneumothorax. Other findings: None. ABDOMEN AND PELVIS: Bowel: There is large amount of stool in the colon. The bowel gas pattern is nonspecific. Free air: None. Bones: Unremarkable. Other findings: None. IMPRESSION: Constipation. Nonobstructive bowel gas pattern. Clear lungs. Medical Decision Making Medical Decision Making: Assessment: Abdominal Pain Plan: --Labs --X-Ray -Abdomen Obst. Series Updates: Case discussed with Dr. Capo Aguirre, Hospitalist. Patient has been admitted for intractable abdominal pain and constipation under Dr. Aguirre's service. Disposition Discussed With DrIndy: Jorge Aguirre Counseled Patient/Family Regarding: Studies Performed, Diagnosis - Disposition Disposition: HOSPITALIZED Disposition Time: 12:41 Condition: FAIR - Clinical Impression Clinical Impression: Intractable abdominal pain, Constipation - Scribe Statement The provider has reviewed the documentation as recorded by the [facility] Provider Attestation: All medical record entries made by the [facility] were at my direction and personally dictated by me. I have reviewed the chart and agree that the record accurately reflects my personal performance of the history, physical exam, medical decision making, and the department course for this patient. I have also personally directed, reviewed, and agree with the discharge instructions and disposition.
--- NOTE | 2017-11-04 14:14 | CP.PCM.HP ---
<Sahil Manzo - Last Filed: 11/04/17 14:10> History of Present Illness - History of Present Illness History of Present Illness: HPI: Patient is a 56M with a PMH of diverticulitis with perforation s/p colostomy reversal comes to the ED with a week of worsening abdominal pain. He states that it started in his lower abdomen radiating to the right testicle. He was seen in the ED last week and had a CT done that showed constipation with no obstruction. He then went to his PMD who ordered testicular US that was normal. He came back to the ED today with consistent abdominal pain. Nothing makes the pain better or worse. Describes the pain as a deep pressure like pain in his abdomen. The pain does not radiate. The pain is constant. 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 inguinal hernia repair FH: Mother = diabetes, arthritis, osteoporosis; Father = in his 90s, Alzheimer, prostate CA; Brother = Kidney transplant, depression, diabetes, obesity SH: smokes 0.5 pack per day for over 40 years, drinks occasionally, cocaine abuse in the 80s, marijuana abuse daily All: NKA Full code No advanced directive Proxy: Meghan [phone] Present on Admission - Present on Admission Any Indicators Present on Admission: No History of DVT/PE: No History of Uncontrolled Diabetes: No Urinary Catheter: No Decubitus Ulcer Present: No Review of Systems - Review of Systems Review of Systems: per hpi Past Patient History - Infectious Disease Hx of Infectious Diseases: None - Past Medical History & Family History Past Medical History?: Yes - Past Social History Smoking Status: Heavy Smoker > 10 Cigarettes Daily - CARDIAC Hx Cardiac Disorders: Yes Hx Angina: Yes - PULMONARY Hx Respiratory Disorders: No - NEUROLOGICAL Hx Neurological Disorder: Yes HX Cerebrovascular Accident: Yes - HEENT Hx HEENT Problems: No - RENAL Hx Chronic Kidney Disease: No - ENDOCRINE/METABOLIC Hx Endocrine Disorders: No - HEMATOLOGICAL/ONCOLOGICAL Hx Human Immunodeficiency Virus (HIV): No - INTEGUMENTARY Hx Dermatological Problems: No - MUSCULOSKELETAL/RHEUMATOLOGICAL Hx Musculoskeletal Disorders: No Hx Falls: No - GASTROINTESTINAL Hx Crohn's Disease: No Hx Diverticulitis: Yes (as above with perforation 2015) Hx Pancreatitis: No - GENITOURINARY/GYNECOLOGICAL Hx Genitourinary Disorders: No - PSYCHIATRIC Hx Anxiety: Yes Hx Depression: Yes Hx Substance Use: Yes (smokes marijuana) - SURGICAL HISTORY Other/Comment: LEFT INGUINAL HERNIA SX; colon resection and reversal 2017. - ANESTHESIA Hx Anesthesia: Yes Hx Anesthesia Reactions: No Hx Malignant Hyperthermia: No Meds Allergies/Adverse Reactions: Allergies Allergy/AdvReac Type Severity Reaction Status Date / Time No Known Allergies Allergy Verified 11/04/17 10:57 Physical Exam - Constitutional Appears: Well - Head Exam Head Exam: ATRAUMATIC, NORMAL INSPECTION, NORMOCEPHALIC - Eye Exam Eye Exam: EOMI, Normal appearance, PERRL Pupil Exam: NORMAL ACCOMODATION, PERRL - ENT Exam ENT Exam: Mucous Membranes Moist, Normal Exam - Neck Exam Neck exam: Positive for: Normal Inspection - Respiratory Exam Respiratory Exam: Clear to Auscultation Bilateral, NORMAL BREATHING PATTERN - Cardiovascular Exam Cardiovascular Exam: REGULAR RHYTHM - GI/Abdominal Exam GI & Abdominal Exam: Normal Bowel Sounds, Soft, Tenderness. absent: Distended, Guarding - Exam Exam: Circumcision, NORMAL INSPECTION, Testicular Vertical Lie. absent: Scrotal Swelling, Testicular Tenderness, Uretheral Discharge, Bladder Distension - Extremities Exam Extremities exam: Positive for: normal inspection - Back Exam Back exam: NORMAL INSPECTION - Neurological Exam Neurological exam: Alert, CN II-XII Intact, Normal Gait, Oriented x3, Reflexes Normal - Psychiatric Exam Psychiatric exam: Normal Affect, Normal Mood - Skin Skin Exam: Dry, Intact, Normal Color, Warm Results - Vital Signs Recent Vital Signs: Last Vital Signs Temp 98.1 F 11/04/17 10:54 Pulse 69 11/04/17 10:54 Resp 20 11/04/17 10:54 BP 142/82 11/04/17 10:54 Pulse Ox 98 11/04/17 13:14 - Labs Result Diagrams: 11/04/17 11:38 11/04/17 11:38 Labs: Laboratory Results - last 24 hr 11/04/17 11/04/17 11/04/17 11:38 11:38 11:51 WBC 6.2 RBC 4.81 Hgb 15.0 Hct 43.3 MCV 90.0 MCH 31.2 H MCHC 34.7 RDW 13.5 Plt Count 205 MPV 10.5 Neut % (Auto) 67.0 Lymph % (Auto) 24.5 Mason % (Auto) 5.9 Eos % (Auto) 1.9 Baso % (Auto) 0.7 Neut # (Auto) 4.2 Lymph # (Auto) 1.5 Mason # (Auto) 0.4 Eos # (Auto) 0.1 Baso # (Auto) 0.0 Sodium 143 Potassium 4.3 Chloride 105 Carbon Dioxide 27 Anion Gap 15 BUN 13 Creatinine 0.8 Est GFR ( Amer) > 60 Est GFR (Non-Af Amer) > 60 Random Glucose 88 Calcium 8.9 Total Bilirubin 0.5 AST 20 ALT 16 L D Alkaline Phosphatase 47 Total Protein 6.9 Albumin 3.9 Globulin 3.0 Albumin/Globulin Ratio 1.3 Lipase 101 Urine Color Yellow Urine Clarity Clear Urine pH 5.0 Ur Specific [place] 1.026 Urine Protein Negative Urine Glucose (UA) Normal Urine Ketones Negative Urine Blood Negative Urine Nitrate Negative Urine Bilirubin Negative Urine Urobilinogen Normal Ur Leukocyte Esterase Neg Urine WBC (Auto) < 1 Urine RBC (Auto) < 1 Ur Squamous Epith Cells < 1 Assessment & Plan (1) Intractable abdominal pain Assessment and Plan: Obstructive series shows constipation, no obstruction Mirilax once Fleet once Prune juice once Colace 100 PO TID Status: Acute Priority: Low (2) History of CVA (cerebrovascular accident) Assessment and Plan: not on ASA or statin. Needs to follow up with job placement officer (Dr. Chow) and PMD as outpatient patient has all the information with him for appropriate follow up check TSH, lipid and T4 Status: Chronic Priority: Medium (3) Hydrocele Assessment and Plan: Follow up with Urologist as outpatient (Dr. Rodrigues) Status: Chronic Priority: Low (4) Marijuana abuse Assessment and Plan: counselled Status: Chronic Priority: Medium (5) Tobacco abuse Assessment and Plan: counselled Status: Chronic Priority: High (6) Prophylactic measure Assessment and Plan: scd no GI PPX indicated at this time Status: Acute <Jorge Aguirre - Last Filed: 11/04/17 20:29> Results - Vital Signs Recent Vital Signs: Last Vital Signs Temp 98.3 F 11/04/17 19:14 Pulse 62 11/04/17 19:14 Resp 20 11/04/17 19:14 BP 110/65 11/04/17 19:14 Pulse Ox 97 11/04/17 19:14 - Labs Result Diagrams: 11/04/17 11:38 11/04/17 11:38 Labs: Laboratory Results - last 24 hr 11/04/17 11/04/17 11/04/17 11:38 11:38 11:51 WBC 6.2 RBC 4.81 Hgb 15.0 Hct 43.3 MCV 90.0 MCH 31.2 H MCHC 34.7 RDW 13.5 Plt Count 205 MPV 10.5 Neut % (Auto) 67.0 Lymph % (Auto) 24.5 Mason % (Auto) 5.9 Eos % (Auto) 1.9 Baso % (Auto) 0.7 Neut # (Auto) 4.2 Lymph # (Auto) 1.5 Mason # (Auto) 0.4 Eos # (Auto) 0.1 Baso # (Auto) 0.0 Sodium 143 Potassium 4.3 Chloride 105 Carbon Dioxide 27 Anion Gap 15 BUN 13 Creatinine 0.8 Est GFR ( Amer) > 60 Est GFR (Non-Af Amer) > 60 Random Glucose 88 Calcium 8.9 Total Bilirubin 0.5 AST 20 ALT 16 L D Alkaline Phosphatase 47 Total Protein 6.9 Albumin 3.9 Globulin 3.0 Albumin/Globulin Ratio 1.3 Lipase 101 Urine Color Yellow Urine Clarity Clear Urine pH 5.0 Ur Specific [place] 1.026 Urine Protein Negative Urine Glucose (UA) Normal Urine Ketones Negative Urine Blood Negative Urine Nitrate Negative Urine Bilirubin Negative Urine Urobilinogen Normal Ur Leukocyte Esterase Neg Urine WBC (Auto) < 1 Urine RBC (Auto) < 1 Ur Squamous Epith Cells < 1 Urine Opiates Screen Urine Methadone Screen Ur Barbiturates Screen Ur Phencyclidine Scrn Ur Amphetamines Screen U Benzodiazepines Scrn U Oth Cocaine Metabols U Cannabinoids Screen 11/04/17 13:41 WBC RBC Hgb Hct MCV MCH MCHC RDW Plt Count MPV Neut % (Auto) Lymph % (Auto) Mason % (Auto) Eos % (Auto) Baso % (Auto) Neut # (Auto) Lymph # (Auto) Mason # (Auto) Eos # (Auto) Baso # (Auto) Sodium Potassium Chloride Carbon Dioxide Anion Gap BUN Creatinine Est GFR ( Amer) Est GFR (Non-Af Amer) Random Glucose Calcium Total Bilirubin AST ALT Alkaline Phosphatase Total Protein Albumin Globulin Albumin/Globulin Ratio Lipase Urine Color Urine Clarity Urine pH Ur Specific [place] Urine Protein Urine Glucose (UA) Urine Ketones Urine Blood Urine Nitrate Urine Bilirubin Urine Urobilinogen Ur Leukocyte Esterase Urine WBC (Auto) Urine RBC (Auto) Ur Squamous Epith Cells Urine Opiates Screen Negative Urine Methadone Screen Negative Ur Barbiturates Screen Negative Ur Phencyclidine Scrn Negative Ur Amphetamines Screen Negative U Benzodiazepines Scrn Negative U Oth Cocaine Metabols Negative U Cannabinoids Screen Positive H Attending/Attestation - Attestation I have personally seen and examined this patient.: Yes I have fully participated in the care of the patient.: Yes I have reviewed all pertinent clinical information: Yes Notes (Text): 11/04/17 20:28 Patient was seen in the ER Bed #14 shortly before the resident History, physical, assessment and plan and orders were gone over with the resident. Abdominal pain is likely secondary to the large amount of stool throughout the large bowel. As long as patient has bowel movement, then we will discharge patient in the morning 11/05/17. Jorge Agurire D.O.
[2017-11-04 14:24] LABS: BARBITURATES, UR NEGATIVE (NEGATIVE); BENZODIAZEPINES, UR NEGATIVE (NEGATIVE); OPIATES, UR NEGATIVE (NEGATIVE); PHENCYCLIDINE, UR NEGATIVE (NEGATIVE)
[2017-11-04] MEDS ORDERED: Morphine 4 MG/ML VIAL ONE (15:43)
[2017-11-04 19:15] VITALS: RESP 20
[2017-11-05 00:55] VITALS: O2SAT 98
[2017-11-05 07:20] LABS: BASO % 0.8 % (0.0-2.0); EOS # 0.2 K/uL (0.0-0.7); EOS % 4.2 % (0.0-4.0); LYMPH # 1.6 K/uL (1.0-4.3); LYMPH % 29.3 % (20.0-40.0); MONO # 0.5 K/uL (0.0-0.8); MONO % 8.9 % (0.0-10.0); NEUT # 3.1 K/uL (1.8-7.0); NEUT % 56.8 % (50.0-75.0); NRBC % 0.1 % (0.0-2.0); WHITE BLOOD COUNT 5.5 K/uL (4.8-10.8)
[2017-11-05 07:29] LABS: LDL CHOLESTEROL 120 mg/dL (0-129)
[2017-11-05 07:36] LABS: ALB/GLOB RATIO 1.2 (1.0-2.1); ALBUMIN 3.5 g/dL (3.5-5.0); ALT/SGPT 21 U/L (21-72); AST/SGOT 19 U/L (17-59); BLOOD UREA NITROGEN 11 mg/dL (9-20); CALCIUM 8.5 mg/dl (8.6-10.4); GFR AFRICAN-AMERICAN > 60; GFR NON-AFRICAN AMERICAN > 60; HDL CHOLESTEROL 33 mg/dL (30-70)
[2017-11-05 07:58] VITALS: BP 107/73; PULSE 64; TEMP 98.8
--- NOTE | 2017-11-05 08:40 | CP.PCM.PN ---
Subjective - Date & Time of Evaluation Date of Evaluation: 11/05/17 Time of Evaluation: 08:15 - Subjective Subjective: Patient was seen and examined at 8:15 AM 11/05/17 356 [address] Upon FULL ROS NO dysphagia/odynopahgia NO soreness in throat NO cough NO sinus/nasal congestion NO fever/chills NO muscle aches/pains NO joint pain NO chest pain/palpations NO SOB NO n/v/d/c: had large bowel movements yesterday after Fleet Enema and again this morning. 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 Intractable Abdominal Pain: much improved after fleet enema and prune juice 2). Trace Hydrocele: f/u outpatient urologist as instructed by PMD 3). Hx CVA: has not been on Statin and ASA and Rx will be provided 4). Marijuana Use: counseled that in conjuction with his abdominal surgical history (Colostomy 05/20 and then reversal 11/18) that he may be an individual in whom Marijuana use leads to constipation. He emphatically stated that he would never stop as this is the drug that keeps him stable from a mental standpoint The following instructions were explained to the patient and copy of these instructions will need to be provided to him upon discharge: 1). Follow up with the following physicians as already instructed by your Primary Care Physician Dr. Gregory Braxton: Dr. Tish Chow Cardiology Dr. Radha Rodrigues Urology Dr. [facility] 2). The following prescriptions were provided to you. Please have them filled at your pharmacy and use as directed: Colace 100 mg, 1 tablet by mouth 2x/day (breakfast and dinner), Dispense #60, NO refills Atorvastatin 10 mg, 1 tablet by mouth 1x/day (dinner), Dispense #30, NO refills Aspirin 81 mg, 1 tablet by mouth 1x/day (breakfast), Dispense #30, NO refills 3). Please drink at least 8 ounces of Sunsweet Prune Juice everyday. 4). Please drink 3 liters of water a day. As long as you are urinating the water out, this amount should not be a problem. 5). Walk at a brisk sustained pace for 30 minutes at least 5 times per week. 6). Please follow the above instructions. Failure to do so may have serious consequences to your health. 7). Please take care of yourself, be well, and take your out dancing as "dancing is life". Jorge Aguirre D.O. Objective - Vital Signs/Intake and Output Vital Signs (last 24 hours): Temp Pulse Resp BP Pulse Ox 98.8 F 64 20 107/73 98 11/05/17 07:54 11/05/17 07:54 11/05/17 07:54 11/05/17 07:54 11/05/17 07:54 Intake and Output: 11/05/17 11/05/17 06:59 18:59 Intake Total 100 Balance 100 - Medications Medications: Current Medications Docusate Sodium (Colace) 100 mg PO TID [facility] Last Admin: 11/04/17 18:25 Dose: 100 mg Heparin Sodium (Porcine) (Heparin) 5,000 units SC Q12 LYNNE - Labs Labs: 11/05/17 06:44 11/05/17 06:44
[2017-11-05] MEDS ORDERED: Pneumococcal 23-Valent Vaccine IM ONE (09:29)
--- NOTE | 2017-11-05 09:35 | CP.PCM.DIS ---
<Joanie Spencer E - Last Filed: 11/05/17 09:39> Provider - Provider Date of Admission: 11/04/17 12:40 Attending physician: Jorge Aguirre MD Time Spent in preparation of Discharge (in minutes): 35 Hospital Course - Lab Results Lab Results: Most Recent Lab Values WBC 5.5 K/uL (4.8-10.8) 11/05/17 06:44 RBC 4.81 Mil/uL (4.40-5.90) 11/04/17 11:38 Hgb 15.0 g/dL (12.0-18.0) 11/04/17 11:38 Hct 43.3 % (35.0-51.0) 11/04/17 11:38 MCV 90.0 fL (80.0-94.0) 11/04/17 11:38 MCH 31.2 pg (27.0-31.0) H 11/04/17 11:38 MCHC 34.7 g/dL (33.0-37.0) 11/04/17 11:38 RDW 13.5 % (11.5-14.5) 11/04/17 11:38 Plt Count 205 K/uL (130-400) 11/04/17 11:38 MPV 10.5 fL (7.2-11.7) 11/04/17 11:38 Neut % (Auto) 56.8 % (50.0-75.0) 11/05/17 06:44 Lymph % (Auto) 29.3 % (20.0-40.0) 11/05/17 06:44 Mcdonald % (Auto) 8.9 % (0.0-10.0) 11/05/17 06:44 Eos % (Auto) 4.2 % (0.0-4.0) H 11/05/17 06:44 Baso % (Auto) 0.8 % (0.0-2.0) 11/05/17 06:44 Neut # (Auto) 3.1 K/uL (1.8-7.0) 11/05/17 06:44 Lymph # (Auto) 1.6 K/uL (1.0-4.3) 11/05/17 06:44 Mcdonald # (Auto) 0.5 K/uL (0.0-0.8) 11/05/17 06:44 Eos # (Auto) 0.2 K/uL (0.0-0.7) 11/05/17 06:44 Baso # (Auto) 0.0 K/uL (0.0-0.2) 11/05/17 06:44 Sodium 141 mmol/L (132-148) 11/05/17 06:44 Potassium 4.2 mmol/L (3.6-5.2) 11/05/17 06:44 Chloride 107 mmol/L (98-107) 11/05/17 06:44 Carbon Dioxide 27 mmol/L (22-30) 11/05/17 06:44 Anion Gap 12 (10-20) 11/05/17 06:44 BUN 11 mg/dL (9-20) 11/05/17 06:44 Creatinine 0.7 mg/dL (0.8-1.5) L 11/05/17 06:44 Est GFR ( Amer) > 60 11/05/17 06:44 Est GFR (Non-Af Amer) > 60 11/05/17 06:44 Random Glucose 98 mg/dL (75-110) 11/05/17 06:44 Calcium 8.5 mg/dl (8.6-10.4) L 11/05/17 06:44 Phosphorus 2.8 mg/dL (2.5-4.5) 11/05/17 06:44 Magnesium 1.7 mg/dL (1.6-2.3) 11/05/17 06:44 Total Bilirubin 0.7 mg/dL (0.2-1.3) 11/05/17 06:44 AST 19 U/L (17-59) 11/05/17 06:44 ALT 21 U/L (21-72) D 11/05/17 06:44 Alkaline Phosphatase 50 U/L (38-126) 11/05/17 06:44 Total Protein 6.4 g/dL (6.3-8.3) 11/05/17 06:44 Albumin 3.5 g/dL (3.5-5.0) 11/05/17 06:44 Globulin 2.9 gm/dL (2.2-3.9) 11/05/17 06:44 Albumin/Globulin Ratio 1.2 (1.0-2.1) 11/05/17 06:44 Triglycerides 46 mg/dL (0-149) 11/05/17 06:44 Cholesterol 166 mg/dL (0-199) 11/05/17 06:44 LDL Cholesterol Direct 120 mg/dL (0-129) 11/05/17 06:44 HDL Cholesterol 33 mg/dL (30-70) 11/05/17 06:44 Lipase 101 U/L (23-300) 11/04/17 11:38 Free T4 1.05 ng/dL (0.78-2.19) 11/05/17 06:44 TSH 3rd Generation 2.57 mIU/L (0.46-4.68) 11/05/17 06:44 Urine Color Yellow (YELLOW) 11/04/17 11:51 Urine Clarity Clear (Clear) 11/04/17 11:51 Urine pH 5.0 (5.0-8.0) 11/04/17 11:51 Ur Specific [place] 1.026 (1.003-1.030) 11/04/17 11:51 Urine Protein Negative mg/dL (NEGATIVE) 11/04/17 11:51 Urine Glucose (UA) Normal mg/dL (Normal) 11/04/17 11:51 Urine Ketones Negative mg/dL (NEGATIVE) 11/04/17 11:51 Urine Blood Negative (NEGATIVE) 11/04/17 11:51 Urine Nitrate Negative (NEGATIVE) 11/04/17 11:51 Urine Bilirubin Negative (NEGATIVE) 11/04/17 11:51 Urine Urobilinogen Normal mg/dL (0.2-1.0) 11/04/17 11:51 Ur Leukocyte Esterase Neg Deondre/uL (Negative) 11/04/17 11:51 Urine WBC (Auto) < 1 /hpf (0-5) 11/04/17 11:51 Urine RBC (Auto) < 1 /hpf (0-3) 11/04/17 11:51 Ur Squamous Epith Cells < 1 /hpf (0-5) 11/04/17 11:51 Urine Opiates Screen Negative (NEGATIVE) 11/04/17 13:41 Urine Methadone Screen Negative (NEGATIVE) 11/04/17 13:41 Ur Barbiturates Screen Negative (NEGATIVE) 11/04/17 13:41 Ur Phencyclidine Scrn Negative (NEGATIVE) 11/04/17 13:41 Ur Amphetamines Screen Negative (NEGATIVE) 11/04/17 13:41 U Benzodiazepines Scrn Negative (NEGATIVE) 11/04/17 13:41 U Oth Cocaine Metabols Negative (NEGATIVE) 11/04/17 13:41 U Cannabinoids Screen Positive (NEGATIVE) H 11/04/17 13:41 - Hospital Course Hospital Course: HPI (As per admission): Patient is a 56M with a PMH of diverticulitis with perforation s/p colostomy reversal comes to the ED with a week of worsening abdominal pain. He states that it started in his lower abdomen radiating to the right testicle. He was seen in the ED last week and had a CT done that showed constipation with no obstruction. He then went to his PMD who ordered testicular US that was normal. He came back to the ED today with consistent abdominal pain. Nothing makes the pain better or worse. Describes the pain as a deep pressure like pain in his abdomen. The pain does not radiate. The pain is constant. Hospital Course: Patient was admitted with diagnosis of constipation. Patient was given Miralax once, Fleet once, Prune juice once and Colace 100 PO TID, subsequently, patient had 1-2 bowel movement. Patient was able to eat with no acute issues and was with normal bowel sounds on examination. Patient was admitted for observation and had no acute issues. Patient remained stable overnight. Patient was discharge home with appropriate instructions. Pertinent imaging: Abdominal obstructive series: Constipation. Non-obstructive bowel gas pattern. This is a brief summary of events. For complete course, please refer to the medical record Discharge Exam - Head Exam Head Exam: ATRAUMATIC, NORMAL INSPECTION, NORMOCEPHALIC - Eye Exam Eye Exam: EOMI, Normal appearance - ENT Exam ENT Exam: Mucous Membranes Moist - Neck Exam Neck exam: Full Rom - Respiratory Exam Respiratory Exam: NORMAL BREATHING PATTERN. absent: Accessory Muscle Use, Chest Wall Tenderness, Decreased Breath Sounds, Wheezes, Respiratory Distress Additional comments: Inspiratory crackles due to history of tobacco use - Cardiovascular Exam Cardiovascular Exam: REGULAR RHYTHM, +S1, +S2 - GI/Abdominal Exam GI & Abdominal Exam: Normal Bowel Sounds, Soft. absent: Distended, Firm, Guarding, Hernia, Tenderness - Extremities Exam Extremities exam: normal inspection - Neurological Exam Neurological exam: Alert, Normal Gait, Oriented x3 - Psychiatric Exam Psychiatric exam: Anxious - Skin Skin Exam: Normal Color Discharge Plan - Discharge Medications Prescriptions: Aspirin [Adult Aspirin Regimen] 81 mg PO DAILY #30 tablet. Atorvastatin [Lipitor] 10 mg PO DIN #30 tab Docusate [Colace] 100 mg PO BID #60 cap Polyethylene Glycol 3350 [Miralax] 17 gm PO STAT PRN #10 packet PRN Reason: Constipation - Follow Up Plan Condition: FAIR Disposition: HOME/ ROUTINE Instructions: Quitting Smoking, Marijuana Use and Addiction (DC), Constipation (DC), Constipation (GEN), Abdominal Pain (ED) Additional Instructions: The following instructions were explained to the patient and copy of these instructions will need to be provided to him upon discharge: 1). Follow up with the following physicians as already instructed by your Primary Care Physician Dr. Gregory Braxton: Dr. Tish Chow Cardiology Dr. Radha Rodrigues Urology Dr. [facility] 2). The following prescriptions were provided to you. Please have them filled at your pharmacy and use as directed: Colace 100 mg, 1 tablet by mouth 2x/day (breakfast and dinner), Dispense #60, NO refills Atorvastatin 10 mg, 1 tablet by mouth 1x/day (dinner), Dispense #30, NO refills Aspirin 81 mg, 1 tablet by mouth 1x/day (breakfast), Dispense #30, NO refills Polyethylene Glycol 17 gm Packet, Dissolve 1 packet in 8 to 12 ounces of water and drink ONLY if you have not had bowel movement in 3 to 4 days, Dispense #10, NO refills 3). Please drink at least 8 ounces of Sunsweet Prune Juice everyday. 4). Please drink 3 liters of water a day. As long as you are urinating the water out, this amount should not be a problem. 5). Walk at a brisk sustained pace for 30 minutes at least 5 times per week. 6). Please follow the above instructions. Failure to do so may have serious consequences to your health. 7). Please take care of yourself, be well, and take your out dancing as "dancing is life". Referrals: Daren Rodrigues MD [Medical Doctor] - Mendoza Braxton [Staff Provider] - Geraldo Winston MD [Medical Doctor] - Jorge Gómez - Last Filed: 05/04/18 18:45> Provider - Provider Date of Admission: 11/04/17 12:40 Attending physician: Jorge Aguirre MD Time Spent in preparation of Discharge (in minutes): 40 Hospital Course - Lab Results Lab Results: Most Recent Lab Values WBC 5.5 K/uL (4.8-10.8) 11/05/17 06:44 RBC 4.81 Mil/uL (4.40-5.90) 11/04/17 11:38 Hgb 15.0 g/dL (12.0-18.0) 11/04/17 11:38 Hct 43.3 % (35.0-51.0) 11/04/17 11:38 MCV 90.0 fL (80.0-94.0) 11/04/17 11:38 MCH 31.2 pg (27.0-31.0) H 11/04/17 11:38 MCHC 34.7 g/dL (33.0-37.0) 11/04/17 11:38 RDW 13.5 % (11.5-14.5) 11/04/17 11:38 Plt Count 205 K/uL (130-400) 11/04/17 11:38 MPV 10.5 fL (7.2-11.7) 11/04/17 11:38 Neut % (Auto) 56.8 % (50.0-75.0) 11/05/17 06:44 Lymph % (Auto) 29.3 % (20.0-40.0) 11/05/17 06:44 Mcdonald % (Auto) 8.9 % (0.0-10.0) 11/05/17 06:44 Eos % (Auto) 4.2 % (0.0-4.0) H 11/05/17 06:44 Baso % (Auto) 0.8 % (0.0-2.0) 11/05/17 06:44 Neut # (Auto) 3.1 K/uL (1.8-7.0) 11/05/17 06:44 Lymph # (Auto) 1.6 K/uL (1.0-4.3) 11/05/17 06:44 Mcdonald # (Auto) 0.5 K/uL (0.0-0.8) 11/05/17 06:44 Eos # (Auto) 0.2 K/uL (0.0-0.7) 11/05/17 06:44 Baso # (Auto) 0.0 K/uL (0.0-0.2) 11/05/17 06:44 Sodium 141 mmol/L (132-148) 11/05/17 06:44 Potassium 4.2 mmol/L (3.6-5.2) 11/05/17 06:44 Chloride 107 mmol/L (98-107) 11/05/17 06:44 Carbon Dioxide 27 mmol/L (22-30) 11/05/17 06:44 Anion Gap 12 (10-20) 11/05/17 06:44 BUN 11 mg/dL (9-20) 11/05/17 06:44 Creatinine 0.7 mg/dL (0.8-1.5) L 11/05/17 06:44 Est GFR ( Amer) > 60 11/05/17 06:44 Est GFR (Non-Af Amer) > 60 11/05/17 06:44 Random Glucose 98 mg/dL (75-110) 11/05/17 06:44 Calcium 8.5 mg/dl (8.6-10.4) L 11/05/17 06:44 Phosphorus 2.8 mg/dL (2.5-4.5) 11/05/17 06:44 Magnesium 1.7 mg/dL (1.6-2.3) 11/05/17 06:44 Total Bilirubin 0.7 mg/dL (0.2-1.3) 11/05/17 06:44 AST 19 U/L (17-59) 11/05/17 06:44 ALT 21 U/L (21-72) D 11/05/17 06:44 Alkaline Phosphatase 50 U/L (38-126) 11/05/17 06:44 Total Protein 6.4 g/dL (6.3-8.3) 11/05/17 06:44 Albumin 3.5 g/dL (3.5-5.0) 11/05/17 06:44 Globulin 2.9 gm/dL (2.2-3.9) 11/05/17 06:44 Albumin/Globulin Ratio 1.2 (1.0-2.1) 11/05/17 06:44 Triglycerides 46 mg/dL (0-149) 11/05/17 06:44 Cholesterol 166 mg/dL (0-199) 11/05/17 06:44 LDL Cholesterol Direct 120 mg/dL (0-129) 11/05/17 06:44 HDL Cholesterol 33 mg/dL (30-70) 11/05/17 06:44 Lipase 101 U/L (23-300) 11/04/17 11:38 Free T4 1.05 ng/dL (0.78-2.19) 11/05/17 06:44 TSH 3rd Generation 2.57 mIU/L (0.46-4.68) 11/05/17 06:44 Urine Color Yellow (YELLOW) 11/04/17 11:51 Urine Clarity Clear (Clear) 11/04/17 11:51 Urine pH 5.0 (5.0-8.0) 11/04/17 11:51 Ur Specific [place] 1.026 (1.003-1.030) 11/04/17 11:51 Urine Protein Negative mg/dL (NEGATIVE) 11/04/17 11:51 Urine Glucose (UA) Normal mg/dL (Normal) 11/04/17 11:51 Urine Ketones Negative mg/dL (NEGATIVE) 11/04/17 11:51 Urine Blood Negative (NEGATIVE) 11/04/17 11:51 Urine Nitrate Negative (NEGATIVE) 11/04/17 11:51 Urine Bilirubin Negative (NEGATIVE) 11/04/17 11:51 Urine Urobilinogen Normal mg/dL (0.2-1.0) 11/04/17 11:51 Ur Leukocyte Esterase Neg Deondre/uL (Negative) 11/04/17 11:51 Urine WBC (Auto) < 1 /hpf (0-5) 11/04/17 11:51 Urine RBC (Auto) < 1 /hpf (0-3) 11/04/17 11:51 Ur Squamous Epith Cells < 1 /hpf (0-5) 11/04/17 11:51 Urine Opiates Screen Negative (NEGATIVE) 11/04/17 13:41 Urine Methadone Screen Negative (NEGATIVE) 11/04/17 13:41 Ur Barbiturates Screen Negative (NEGATIVE) 11/04/17 13:41 Ur Phencyclidine Scrn Negative (NEGATIVE) 11/04/17 13:41 Ur Amphetamines Screen Negative (NEGATIVE) 11/04/17 13:41 U Benzodiazepines Scrn Negative (NEGATIVE) 11/04/17 13:41 U Oth Cocaine Metabols Negative (NEGATIVE) 11/04/17 13:41 U Cannabinoids Screen Positive (NEGATIVE) H 11/04/17 13:41 Attending/Attestation - Attestation I have personally seen and examined this patient.: Yes I have fully participated in the care of the patient.: Yes I have reviewed all pertinent clinical information, including history, physical exam and plan: Yes Notes (Text): 11/05/17 18:45 Please also see my progress note 11/05/17. Jorge Aguirre D.O.
== END 2017-11-05 10:05 | disposition home or self-care (01) ==
LOC: C.ER 10:48 → C.3T 12:40 → C.9E 12:40
PROVIDERS: ADMIT Family Medicine; ATTEND Family Medicine
DX: K59.03 Drug induced constipation (principal); F12.10 Cannabis abuse, uncomplicated; F17.210 Nicotine dependence, cigarettes, uncomplicated; N43.3 Hydrocele, unspecified; Z80.42 Family history of malignant neoplasm of prostate; Z86.73 Personal history of transient ischemic attack (TIA), and cerebral infarction without residual deficits; F41.9 Anxiety disorder, unspecified; F32.9 Major depressive disorder, single episode, unspecified
CPT/HCPCS: 36415; 74022; 80053; 80061; 80324; 80345; 80346; 80349; 80353; 80358; 80361; 81001; 83690; 83735; 83992; 84100; 84439; 84443; 85025; 85048; 96372; 96374; 99285; G0378; J1644; J2270

== ENCOUNTER 2017-12-07 10:00 | Emergency (ER) | payer OTHER ==
[2017-12-07 10:02] VITALS: BMI 28.6
[2017-12-07] MEDS ORDERED: Iohexol 240 (50 ml) PO ONE (10:44)
--- NOTE | 2017-12-07 10:46 | C.PDOC ---
History Of Present Illness 56 years old male with Hx of stroke presents to ED for complaints of chest and jaw pain associated with SOB that began 1 hour ago. Patients describes pain as sharp and states that it was present for 20 minutes while watching TV then went away. Patient also reports that he smokes 10-12 cigarettes a day. Denies sweats , nausea, vomiting or diarrhea. Patient also reports some testicular pain. Time Seen by Provider: 12/07/17 10:29 Chief Complaint (Nursing): Chest Pain History Per: Patient History/Exam Limitations: no limitations Onset/Duration Of Symptoms: Hrs Current Symptoms Are (Timing): Still Present Quality: Sharp Associated Symptoms: denies: Nausea, Diaphoresis Modifying Factors: None Exacerbating Factors: None Alleviating Factors: None Recent travel outside of the [place]: No Past Medical History Reviewed: Historical Data, Nursing Documentation, Vital Signs Vital Signs: Last Vital Signs Temp 98.5 F 12/07/17 10:07 Pulse 55 L 12/07/17 13:22 Resp 18 12/07/17 13:22 BP 137/74 12/07/17 13:22 Pulse Ox 100 12/07/17 14:28 - Medical History PMH: Anxiety, Depression, Diverticulitis (as above with perforation 2016) - [facility] Procedures BYPASS SIGMOID COLON TO CUTANEOUS, OPEN APPROACH (05/11/16) DRAINAGE OF LEFT MAIN BRONCHUS, ENDO, DIAGN (11/12/16) GROUP PSYCHOTHERAPY (12/28/16) INDIVIDUAL PSYCHOTHERAPY, SUPPORTIVE (12/28/16) REPAIR RECTUM, OPEN APPROACH (11/12/16) RESECTION OF SIGMOID COLON, OPEN APPROACH (05/11/16) Family History: States: Unknown Family Hx - Social History Hx Alcohol Use: Yes Hx Substance Use: Yes (smokes marijuana) - Immunization History Hx Tetanus Toxoid Vaccination: No Hx Influenza Vaccination: No Hx Pneumococcal Vaccination: No Review Of Systems Constitutional: Negative for: Fever, Chills, Sweats ENT: Positive for: Other (Jaw pain) Cardiovascular: Positive for: Chest Pain Respiratory: Positive for: Shortness of Breath. Negative for: Cough Gastrointestinal: Negative for: Nausea, Vomiting, Abdominal Pain, Diarrhea Genitourinary: Positive for: Other (Testicular pain ) Skin: Negative for: Rash Neurological: Negative for: Weakness, Numbness Physical Exam - Physical Exam Appears: Well, Non-toxic, No Acute Distress Skin: Warm, Dry Head: Atraumatic, Normacephalic Eye(s): bilateral: Normal Inspection, PERRL, EOMI Oral Mucosa: Moist Neck: Normal ROM, Supple Chest: Symmetrical, No Tenderness Cardiovascular: Rhythm Regular, No Murmur Respiratory: Normal Breath Sounds, No Decreased Breath Sounds, No Rales, No Rhonchi, No Wheezing Gastrointestinal/Abdominal: Soft, No Tenderness, No Guarding, No Rebound, Hernia (inguinal hernia; reducible), Other (swelling of right inguinal and scrotal region) Extremity: Normal ROM, No Pedal Edema Extremity: Bilateral: Normal Color And Temperature, Normal ROM Neurological/Psych: Oriented x3, Normal Speech Gait: Steady ED Course And Treatment O2 Sat by Pulse Oximetry: 100 (RA) Pulse Ox Interpretation: Normal - Other Rad CXR X-Ray: Viewed By Me, Read By Radiologist Interpretation: PROCEDURE: CHEST RADIOGRAPH, 1 VIEW. HISTORY: chest pain. COMPARISON: 11/17/2016. FINDINGS: LUNGS: Clear. PLEURA: No pneumothorax or pleural fluid seen. CARDIOVASCULAR: No radiographic findings to suggest acute or significant cardiovascular disease. OSSEOUS STRUCTURES: No significant abnormalities. VISUALIZED UPPER ABDOMEN: Normal. OTHER FINDINGS: None. IMPRESSION: No active disease. No acute/significant interval changes. - CT Scan/US Abdomen/Pelvis CT Other Rad Studies (CT/US): Read By Radiologist, Radiology Report Reviewed CT/US Interpretation: PROCEDURE: CT Abdomen and Pelvis with contrast. HISTORY : hernia. COMPARISON: Abdomen pelvis CT with contrast 10/25/2017. TECHNIQUE : Helical CT of the abdomen and pelvis was performed following oral contrast administration. Intravenous contrast was not administered as per referring physician request. Contrast dose: None. Radiation dose: Total exam DLP = 512.80 mGy-cm. This CT exam was performed using one or more of the following dose reduction techniques: Automated exposure control, adjustment of the mA and/ or kV according to patient size, and/or use of iterative reconstruction technique. FINDINGS: LOWER THORAX: Unremarkable. LIVER: Unremarkable. No gross lesion or ductal dilatation. GALLBLADDER AND BILE DUCTS: Unremarkable. PANCREAS: Unremarkable. No gross lesion or ductal dilatation. SPLEEN: Unremarkable. ADRENALS: Unremarkable. No mass. KIDNEYS AND URETERS: Unremarkable. No hydronephrosis. No solid mass. VASCULATURE: Unremarkable. No aortic aneurysm. BOWEL: Prior segmental resection of the distal sigmoid with rectosigmoid anastomosis identified at this time. No bowel obstruction appreciable. Limited postoperative changes noted at the left lower quadrant anterior abdominal wall prior colostomy reversal. APPENDIX: Normal appendix. PERITONEUM: Unremarkable. No free fluid. No free air. LYMPH NODES: Unremarkable. No enlarged lymph nodes. BLADDER: Unremarkable. REPRODUCTIVE: Prostate gland appears upper limits normal size. BONES: No acute fracture. OTHER FINDINGS: None. IMPRESSION: Stable abdomen pelvis CT without definite acute interval findings including bowel obstruction. Prior distal sigmoid segmental resection with anastomosis appearing stable grossly. Postoperative changes stable at left lower quadrant colostomy reversal site. Medical Decision Making Medical Decision Making: Administered Toradol. Ordered CT Abdomen & Pelvis, CXR, and blood work. CT Result: - Normal - No hernia Patient stable for discharge. Disposition - Disposition Disposition: HOME/ ROUTINE Disposition Time: 14:41 Condition: GOOD Additional Instructions: Follow up with your pcp in a few days and take tylenol for pain. Avoid lifting heavy objects Instructions: Chest Pain, Abdominal Hernia (DC) Forms: General Discharge Instructions, [facility] ([place]ian) - Clinical Impression Clinical Impression: Chest pain - Scribe Statement The provider has reviewed the documentation as recorded by the Leo Laura All medical record entries made by the Leo were at my direction and personally dictated by me. I have reviewed the chart and agree that the record accurately reflects my personal performance of the history, physical exam, medical decision making, and the department course for this patient. I have also personally directed, reviewed, and agree with the discharge instructions and disposition.
[2017-12-07] MEDS ORDERED: Iohexol 240 (50 ml) ONE (11:05)
--- NOTE | 2017-12-07 12:36 | RAD ---
PROCEDURE: CHEST RADIOGRAPH, 1 VIEW HISTORY: chest pain COMPARISON: 11/17/2016 FINDINGS: LUNGS: Clear. PLEURA: No pneumothorax or pleural fluid seen. CARDIOVASCULAR: No radiographic findings to suggest acute or significant cardiovascular disease. OSSEOUS STRUCTURES: No significant abnormalities. VISUALIZED UPPER ABDOMEN: Normal. OTHER FINDINGS: None. IMPRESSION: No active disease. No acute/significant interval changes.
[2017-12-07 13:23] VITALS: RESP 18
--- NOTE | 2017-12-07 13:40 | CT ---
PROCEDURE: CT Abdomen and Pelvis with contrast HISTORY: hernia COMPARISON: Abdomen pelvis CT with contrast 10/25/2017. TECHNIQUE: Helical CT of the abdomen and pelvis was performed following oral contrast administration. Intravenous contrast was not administered as per referring physician request. Contrast dose: None Radiation dose: Total exam DLP = 512.80 mGy-cm. This CT exam was performed using one or more of the following dose reduction techniques: Automated exposure control, adjustment of the mA and/or kV according to patient size, and/or use of iterative reconstruction technique. FINDINGS: LOWER THORAX: Unremarkable. LIVER: Unremarkable. No gross lesion or ductal dilatation. GALLBLADDER AND BILE DUCTS: Unremarkable. PANCREAS: Unremarkable. No gross lesion or ductal dilatation. SPLEEN: Unremarkable. ADRENALS: Unremarkable. No mass. KIDNEYS AND URETERS: Unremarkable. No hydronephrosis. No solid mass. VASCULATURE: Unremarkable. No aortic aneurysm. BOWEL: Prior segmental resection of the distal sigmoid with rectosigmoid anastomosis identified at this time. No bowel obstruction appreciable. Limited postoperative changes noted at the left lower quadrant anterior abdominal wall prior colostomy reversal. APPENDIX: Normal appendix. PERITONEUM: Unremarkable. No free fluid. No free air. LYMPH NODES: Unremarkable. No enlarged lymph nodes. BLADDER: Unremarkable. REPRODUCTIVE: Prostate gland appears upper limits normal size. BONES: No acute fracture. OTHER FINDINGS: None. IMPRESSION: Stable abdomen pelvis CT without definite acute interval findings including bowel obstruction. Prior distal sigmoid segmental resection with anastomosis appearing stable grossly. Postoperative changes stable at left lower quadrant colostomy reversal site.
[2017-12-07 14:44] VITALS: BP 135/76; PULSE 57; TEMP 98.3; O2SAT 99
== END 2017-12-07 14:55 | disposition home or self-care (01) ==
LOC: C.ER 10:00
DX: R07.9 Chest pain, unspecified (principal)
CPT/HCPCS: 71045; 74176; 83605; 84484; 96374; 99284; J1885; Q9966

== ENCOUNTER 2017-12-17 05:24 | Emergency (ER) | payer OTHER ==
[2017-12-17 05:24] VITALS: BMI 28.6
[2017-12-17 05:39] VITALS: PULSE 55; TEMP 97.8
--- NOTE | 2017-12-17 05:49 | C.PDOC ---
History Of Present Illness 57 year old male presents to the ER with a complaint of neck pain. Patient states he fell asleep on his couch 2 days ago and woke up with minimal pain to the right side of the neck, today patient woke up stating pain has worsened and he is unable to move his neck due to the pain. Denies headache, dizziness, or weakness/numbness of the upper extremities. Time Seen by Provider: 12/17/17 05:43 Chief Complaint (Nursing): Medical Clearance History Per: Patient History/Exam Limitations: no limitations Onset/Duration Of Symptoms: Hrs Current Symptoms Are (Timing): Still Present Recent travel outside of the [place]: No Past Medical History Reviewed: Historical Data, Nursing Documentation, Vital Signs Vital Signs: Last Vital Signs Temp 97.8 F 12/17/17 05:33 Pulse 55 L 12/17/17 05:33 Resp 20 12/17/17 05:33 BP 132/75 12/17/17 05:33 Pulse Ox 100 12/17/17 05:57 - Medical History PMH: Anxiety, Depression, Diverticulitis (as above with perforation 2016) - [facility] Procedures BYPASS SIGMOID COLON TO CUTANEOUS, OPEN APPROACH (05/11/16) DRAINAGE OF LEFT MAIN BRONCHUS, ENDO, DIAGN (11/12/16) GROUP PSYCHOTHERAPY (12/28/16) INDIVIDUAL PSYCHOTHERAPY, SUPPORTIVE (12/28/16) REPAIR RECTUM, OPEN APPROACH (11/12/16) RESECTION OF SIGMOID COLON, OPEN APPROACH (05/11/16) Family History: States: Unknown Family Hx - Social History Hx Alcohol Use: Yes Hx Substance Use: Yes (smokes marijuana) - Immunization History Hx Tetanus Toxoid Vaccination: No Hx Influenza Vaccination: No Hx Pneumococcal Vaccination: No Review Of Systems Musculoskeletal: Positive for: Neck Pain Neurological: Negative for: Weakness, Numbness, Headache Physical Exam - Physical Exam Appears: Non-toxic Skin: Normal Color, Warm, Dry Head: Atraumatic, Normacephalic Eye(s): bilateral: Normal Inspection Neck: No Midline Cervical Tenderness, Paracervical Tenderness (right), Other ( Lateral neck motion limited secondary to pain) Extremity: Normal ROM (x4) Neurological/Psych: Oriented x3, Normal Speech, Normal Motor, Normal Sensation ED Course And Treatment O2 Sat by Pulse Oximetry: 100 (Room air) Pulse Ox Interpretation: Normal Progress Note: Valium and toradol administered. Based on h/o and PE no XR indicated at this time. On reevaluation, patient reports improvement of pain, he is resting comfortably in the ER in no acute distress, vitals are stable, will discharge home with Rx and instructions to follow up with PMD. Reassessment Condition: Improved Disposition Counseled Patient/Family Regarding: Diagnosis, Need For Followup, Rx Given - Disposition Referrals: Mendoza Braxton [Staff Provider] - Disposition: HOME/ ROUTINE Disposition Time: 06:20 Condition: STABLE Additional Instructions: Please follow up with PMD in office Take meds as directed Return to ER if worse Prescriptions: Cyclobenzaprine [Cyclobenzaprine HCl] 10 mg PO BID #7 tab Naproxen [Naprosyn] 1 tab PO BID PRN #14 tab PRN Reason: Pain Instructions: Neck Sprain (DC) Forms: [employer] (Citizen Of [place]) - Clinical Impression Clinical Impression: Cervical sprain - PA / GENERAL LOT ATTENDANT / Resident Statement MD/DO has reviewed & agrees with the documentation as recorded. - Scribe Statement The provider has reviewed the documentation as recorded by the Scribsahra Nichols All medical record entries made by the Hectoribsahra were at my direction and personally dictated by me. I have reviewed the chart and agree that the record accurately reflects my personal performance of the history, physical exam, medical decision making, and the department course for this patient. I have also personally directed, reviewed, and agree with the discharge instructions and disposition.
[2017-12-17 06:51] VITALS: BP 112/74; RESP 18; O2SAT 98
== END 2017-12-17 06:52 | disposition home or self-care (01) ==
LOC: C.ER 05:24
DX: S13.4XXA Sprain of ligaments of cervical spine, initial encounter (principal); X58.XXXA Exposure to other specified factors, initial encounter
CPT/HCPCS: 96372; 99283; J1885

== ENCOUNTER 2018-01-13 10:07 | Day surgery (SDC) | payer MEDICAID ==
[2018-01-13] MEDS ORDERED: Bupivacaine 0.25% 20 ML INJ IJ ONE (11:49)
[2018-01-13] MEDS ORDERED: Propofol 10 mg/ml Inj (20 ML) ONE (12:06)
[2018-01-13] MEDS ORDERED: ceFAZolin 1 gm in NS 0 GM/0 ML BAG IVPB ONE (12:06)
[2018-01-13] MEDS ORDERED: Midazolam 2 MG/2 ML VIAL ONE (12:07)
[2018-01-13] MEDS ORDERED: ceFAZolin IV 2 gm in Dextrose 2 GM/50 ML BAG IVPB ONE (12:13)
[2018-01-13] MEDS ORDERED: HYDROmorphone 0.5 mg/0.5 ml ISec IVP PRN (12:54)
[2018-01-13] MEDS ORDERED: Oxycodone/Acetaminophen 5/325 mg Tab PO PRN (13:36)
[2018-01-13 14:20] VITALS: O2SAT 100
[2018-01-13 15:37] VITALS: BP 135/67; PULSE 66; RESP 18; TEMP 97.7
--- NOTE | 2018-01-14 | OP ---
PROCEDURE DATE: 01/13/2018 PREOPERATIVE DIAGNOSIS: Incarcerated right inguinal hernia. POSTOPERATIVE DIAGNOSIS: Incarcerated right inguinal hernia. PROCEDURE PERFORMED: Repair of incarcerated right inguinal hernia and excision of large cord lipoma. SURGEON: Partha Shannon MD ANESTHESIA General. BLOOD LOSS: 20 mL. POSTOPERATIVE CONDITION: Stable. INDICATIONS FOR SURGERY: This is a 57-year male with painful partially incarcerated right inguinal hernia, now will undergo repair. GROSS FINDINGS: There was an incarcerated small direct inguinal hernia. There was no indirect hernia sac noted; however, there was a very large cord lipoma, which was removed. DESCRIPTION OF PROCEDURE: The patient was taken to the operating room. General anesthesia was administered. The abdomen was prepped and draped. A standard right inguinal incision was made. The external oblique aponeurosis was opened, and the spermatic cord was looped with a Angel Luis drain. Dissection took place within the spermatic cord in search of the hernia sac. Larger 5-cm soft tissue tumor was encountered and removed. Bleeding from the spermatic vessel was repaired. The direct hernia was noted and was imbricated with a running 2-0 Prolene suture. The wound was irrigated with saline and closed in layers with Monocryl, subcuticular Monocryl and glue. The patient tolerated the procedure well, returned to the recovery room in stable condition. Partha Shannon MD
== END 2018-01-13 14:55 | disposition home or self-care (01) ==
LOC: C.SDS 10:07
PROVIDERS: ATTEND Surgery
DX: K40.90 Unilateral inguinal hernia, without obstruction or gangrene, not specified as recurrent (principal); D17.6 Benign lipomatous neoplasm of spermatic cord
CPT/HCPCS: 49507; 55520; 88304; J0690; J1170; J2250; J2704; J3010

== ENCOUNTER 2018-04-24 14:59 | Emergency (ER) | payer MEDICAID ==
[2018-04-24 14:59] VITALS: BMI 28.6
[2018-04-24 15:05] VITALS: PULSE 60; TEMP 98.1
--- NOTE | 2018-04-24 16:26 | C.PDOC ---
History Of Present Illness 57 y/o male presents to ED with complaints of pain and swelling to his left knee since last night after dancing. States he has had knee problems for the past seven months and has not seen a doctor. Patient put cold packs on his left knee but has not taken any medications for the pain and states he cant bend his knee. Denies fever, chills, or recent trauma. Patient is demanding an x-ray done. Time Seen by Provider: 04/24/18 15:21 Chief Complaint (Nursing): Lower Extremity Problem/Injury History Per: Patient History/Exam Limitations: no limitations Onset/Duration Of Symptoms: Days Current Symptoms Are (Timing): Still Present Past Medical History Reviewed: Historical Data, Nursing Documentation, Vital Signs Vital Signs: Last Vital Signs Temp 98.1 F 04/24/18 15:02 Pulse 60 04/24/18 15:02 Resp 18 04/24/18 15:02 BP 112/66 04/24/18 15:02 Pulse Ox 99 04/24/18 15:02 - Medical History PMH: Anxiety, Depression, Diverticulitis Denies: Crohn's Disease, HIV, Pancreatitis, Chronic Kidney Disease - [facility] Procedures BYPASS SIGMOID COLON TO CUTANEOUS, OPEN APPROACH (05/11/16) DRAINAGE OF LEFT MAIN BRONCHUS, ENDO, DIAGN (11/12/16) GROUP PSYCHOTHERAPY (12/28/16) INDIVIDUAL PSYCHOTHERAPY, SUPPORTIVE (12/28/16) REPAIR RECTUM, OPEN APPROACH (11/12/16) RESECTION OF SIGMOID COLON, OPEN APPROACH (05/11/16) Family History: States: No Known Family Hx - Social History Hx Alcohol Use: Yes Hx Substance Use: Yes (smokes marijuana) - Immunization History Hx Tetanus Toxoid Vaccination: No Hx Influenza Vaccination: No Hx Pneumococcal Vaccination: No Review Of Systems Constitutional: Negative for: Fever, Chills Cardiovascular: Negative for: Chest Pain Respiratory: Negative for: Shortness of Breath Gastrointestinal: Negative for: Nausea, Vomiting, Diarrhea Musculoskeletal: Positive for: Other (Left knee pain and swelling) Neurological: Negative for: Weakness, Numbness Physical Exam - Physical Exam Appears: Well, Non-toxic, No Acute Distress Skin: Dry Head: Atraumatic, Normacephalic Eye(s): bilateral: Normal Inspection Oral Mucosa: Moist Extremity: Tenderness (lateral tenderness to L knee; not warm), Capillary Refill (less than 2 seconds), No Deformity, Swelling (of L knee) Pulses: Left Dorsalis Pedis: Normal Neurological/Psych: Oriented x3, Normal Speech Gait: Steady ED Course And Treatment O2 Sat by Pulse Oximetry: 99 (RA) Pulse Ox Interpretation: Normal - Other Rad Knee X-Ray X-Ray: Read By Radiologist Interpretation: FINDINGS: BONES: Normal. No fracture. JOINTS: Normal. No osteoarthritis. JOINT EFFUSION: None. OTHER FINDINGS: None. IMPRESSION: No significant or acute findings to account for/ related to the clinical presentation. Medical Decision Making Medical Decision Making: Impression: Knee Pain Plan: --Knee X-Ray --Toradol --Cold pack --Knee brace xray left knee neg. d/c home nsaids. knee immobilizer Disposition Counseled Patient/Family Regarding: Studies Performed, Diagnosis, Need For Followup, Rx Given - Disposition Referrals: Sinan Ashraf III, MD [Staff Provider] - Disposition: HOME/ ROUTINE Disposition Time: 17:29 Condition: GOOD Additional Instructions: Wear knee immobilizer for support. COld compresses to knee for 20 min intervals 4 times a day. Ibupforen for ain. Follow up with orthoepdics, Dr Ashraf. Prescriptions: Ibuprofen [Motrin] 600 mg PO TID #30 tab Instructions: Knee Sprain (DC) Forms: [facility] ([place]), General Discharge Instructions - Clinical Impression Clinical Impression: Left knee sprain - PA / LOG CUT OFF SAWYER / Resident Statement MD/DO has reviewed & agrees with the documentation as recorded. - Scribe Statement The provider has reviewed the documentation as recorded by the Scribe Duyen Vasquez All medical record entries made by the Scribe were at my direction and personally dictated by me. I have reviewed the chart and agree that the record accurately reflects my personal performance of the history, physical exam, medical decision making, and the department course for this patient. I have also personally directed, reviewed, and agree with the discharge instructions and disposition.
--- NOTE | 2018-04-24 16:58 | RAD ---
Date of service: 04/24/2018 PROCEDURE: Left Knee Radiographs. HISTORY: Pain. COMPARISON: None. FINDINGS: BONES: Normal. No fracture. JOINTS: Normal. No osteoarthritis. JOINT EFFUSION: None. OTHER FINDINGS: None. IMPRESSION: No significant or acute findings to account for/ related to the clinical presentation.
[2018-04-24 17:41] VITALS: BP 118/78; RESP 16
[2018-04-27 17:28] VITALS: O2SAT 99
== END 2018-04-24 18:08 | disposition home or self-care (01) ==
LOC: C.ER 14:59
DX: S83.92XA Sprain of unspecified site of left knee, initial encounter (principal); X50.0XXA Overexertion from strenuous movement or load, initial encounter; Y93.41 Activity, dancing; Y92.9 Unspecified place or not applicable
CPT/HCPCS: 73562; 96372; 99284; J1885

== ENCOUNTER 2018-08-03 21:47 | Emergency (ER) | payer MEDICAID ==
[2018-08-03 21:47] VITALS: BMI 28.6
--- NOTE | 2018-08-03 22:42 | C.PDOC ---
Time Seen by Provider: 08/03/18 22:41 Chief Complaint (Nursing): Back Pain Past Medical History Vital Signs: Last Vital Signs Temp 97.6 F 08/03/18 22:06 Pulse 57 L 08/03/18 22:06 Resp 20 08/03/18 22:06 BP 104/72 08/03/18 22:06 Pulse Ox 100 08/03/18 22:06 - Medical History PMH: Anxiety, Depression, Diverticulitis Denies: Crohn's Disease, HIV, Pancreatitis, Chronic Kidney Disease - [facility] Procedures BYPASS SIGMOID COLON TO CUTANEOUS, OPEN APPROACH (05/11/16) DRAINAGE OF LEFT MAIN BRONCHUS, ENDO, DIAGN (11/12/16) GROUP PSYCHOTHERAPY (12/28/16) INDIVIDUAL PSYCHOTHERAPY, SUPPORTIVE (12/28/16) REPAIR RECTUM, OPEN APPROACH (11/12/16) RESECTION OF SIGMOID COLON, OPEN APPROACH (05/11/16) - Social History Hx Alcohol Use: Yes Hx Substance Use: Yes (smokes marijuana) - Immunization History Hx Tetanus Toxoid Vaccination: No Hx Influenza Vaccination: No Hx Pneumococcal Vaccination: No ED Course And Treatment O2 Sat by Pulse Oximetry: 100 Disposition Counseled Patient/Family Regarding: Studies Performed, Diagnosis - Disposition Disposition Time: 22:42
--- NOTE | 2018-08-03 23:07 | C.PDOC ---
History Of Present Illness patient presents with right sided back pain. Has been having back pain , right side for about 30-40 days, but tonight , while sitting watching tv, tried to get up and the pain was very sharp and was unable to get up from the chair due to pain. Called his sons to bring him to the hospital. No incontinence of urineor feces, although he complains of increased urinary frequency Time Seen by Provider: 08/03/18 22:41 Chief Complaint (Nursing): Back Pain History Per: Patient History/Exam Limitations: no limitations Onset/Duration Of Symptoms: Days (30) Current Symptoms Are (Timing): Worse Severity: Severe Pain Scale Rating Of: 7 Recent travel outside of the [place]: No Additional History Per: Family Past Medical History Reviewed: Historical Data, Nursing Documentation, Vital Signs Vital Signs: Last Vital Signs Temp 97.6 F 08/03/18 22:06 Pulse 57 L 08/03/18 22:06 Resp 20 08/03/18 22:06 BP 104/72 08/03/18 22:06 Pulse Ox 100 08/03/18 22:06 - Medical History PMH: Anxiety, Depression, Diverticulitis Denies: Crohn's Disease, HIV, Pancreatitis, Chronic Kidney Disease - [facility] Procedures BYPASS SIGMOID COLON TO CUTANEOUS, OPEN APPROACH (05/11/16) DRAINAGE OF LEFT MAIN BRONCHUS, ENDO, DIAGN (11/12/16) GROUP PSYCHOTHERAPY (12/28/16) INDIVIDUAL PSYCHOTHERAPY, SUPPORTIVE (12/28/16) REPAIR RECTUM, OPEN APPROACH (11/12/16) RESECTION OF SIGMOID COLON, OPEN APPROACH (05/11/16) Family History: States: No Known Family Hx - Social History Hx Alcohol Use: Yes Hx Substance Use: Yes (smokes marijuana) - Immunization History Hx Tetanus Toxoid Vaccination: No Hx Influenza Vaccination: No Hx Pneumococcal Vaccination: No Review Of Systems Constitutional: Negative for: Fever, Chills Cardiovascular: Negative for: Chest Pain Respiratory: Positive for: Shortness of Breath (mild) Gastrointestinal: Negative for: Nausea, Vomiting, Abdominal Pain Genitourinary: Positive for: Frequency (increase). Negative for: Dysuria Musculoskeletal: Positive for: Back Pain Skin: Negative for: Rash Neurological: Negative for: Weakness Psych: Positive for: Anxiety Physical Exam - Physical Exam Appears: In Acute Distress Skin: Warm, Dry Head: Normacephalic Eye(s): bilateral: Normal Inspection Oral Mucosa: Moist Neck: Supple Chest: Symmetrical, Tenderness (right midaxilary line, rib 8 point tenderness) Cardiovascular: Rhythm Regular Respiratory: No Rales, No Rhonchi, No Wheezing Gastrointestinal/Abdominal: Soft, No Tenderness, No Distention, Other (surgical scars) Back: No CVA Tenderness, No Vertebral Tenderness, Decreased ROM, Muscle Spasm Extremity: Normal ROM Extremity: Bilateral: Atraumatic Pulses: Left Dorsalis Pedis: Normal, Right Dorsalis Pedis: Normal DTR: Ankle (R): 0, Ankle (L): 0 Neurological/Psych: Oriented x3 Gait: Unable To Assess ED Course And Treatment - Laboratory Results Result Diagrams: 08/03/18 23:14 08/03/18 23:14 ECG: Interpreted By Me, Viewed By Me ECG Rhythm: Sinus Rhythm (54), Nonspecific Changes O2 Sat by Pulse Oximetry: 100 Pulse Ox Interpretation: Normal Progress Note: pt refused the abg. 2 am pt feels better. Reevaluation Time: 02:33 Reassessment Condition: Improved Medical Decision Making Medical Decision Making: Upon provider reevaluation patient is feeling better, is medically stable, and requires no further treatment in the ED at this time. Patient will be discharged home with Rx for skelaxin, tramadol . Counseling was provided and all questions were answered regarding diagnosis and need for follow up with the referred clinic. There is agreement to discharge plan. Return if symptoms persist or worsen. Disposition Counseled Patient/Family Regarding: Studies Performed, Diagnosis, Need For Followup, Rx Given - Disposition Referrals: [facility] [Outside] [facility] [Outside] Fide Klein MD [Staff Provider] - Disposition: HOME/ ROUTINE Disposition Time: 23:04 Condition: FAIR Additional Instructions: Please return if symptoms recur, or if you experience any incontinence of either stool or urine, or just not feeling well Prescriptions: Metaxalone [Skelaxin] 800 mg PO TID PRN #15 tablet PRN Reason: Muscle Spasm traMADol [Ultram] 50 mg PO TID PRN #15 tab PRN Reason: Pain, Severe (8-10) Instructions: Low Back Pain (DC), Bladder Spasms (DC) Forms: [employer] (Thai) - Clinical Impression Clinical Impression: Low back pain, Urge incontinence
[2018-08-03 23:17] LABS: BASO % 0.8 % (0.0-2.0); EOS # 0.2 K/uL (0.0-0.7); EOS % 3.9 % (0.0-4.0); HEMOGLOBIN 15.5 g/dL (12.0-18.0); LYMPH # 2.2 K/uL (1.0-4.3); LYMPH % 41.3 % (20.0-40.0); MEAN CELL VOLUME 91.8 fL (80.0-94.0); MEAN CORPUSCULAR HEMOGLOBIN 30.7 pg (27.0-31.0); MEAN CORPUSCULAR HGB CONC 33.4 g/dL (33.0-37.0); MEAN PLATELET VOLUME 10.8 fL (7.2-11.7); MONO # 0.6 K/uL (0.0-0.8); MONO % 10.4 % (0.0-10.0); NEUT # 2.4 K/uL (1.8-7.0); NEUT % 43.6 % (50.0-75.0); RBC 5.06 Mil/uL (4.40-5.90); RED CELL DISTRIBUTION WIDTH 13.2 % (11.5-14.5); WHITE BLOOD COUNT 5.4 K/uL (4.8-10.8)
[2018-08-03] MEDS ORDERED: Iodixanol 320 mg/ml 150 ml Bottle IV ONE (23:19)
[2018-08-03 23:24] LABS: INR 0.9; PROTHROMBIN TIME 10.3 SECONDS (9.7-12.2)
[2018-08-03 23:29] LABS: ALB/GLOB RATIO 1.7 (1.0-2.1); ALBUMIN 4.4 g/dL (3.5-5.0); ALT/SGPT 17 U/L (21-72); AST/SGOT 24 U/L (17-59); BLOOD UREA NITROGEN 22 mg/dL (9-20); CALCIUM 8.9 mg/dl (8.6-10.4); GFR NON-AFRICAN AMERICAN > 60; LIPASE 147 U/L (23-300)
[2018-08-04 01:57] LABS: SPERM URINE RARE /hpf; URINE BILIRUBIN NEGATIVE (NEGATIVE); URINE BLOOD NEGATIVE (NEGATIVE); URINE CLARITY Clear (Clear); URINE COLOR Yellow (YELLOW); URINE GLUCOSE (UA) NORMAL (Normal); URINE LEUKOCYTE ESTERASE NEG Leu/uL (Negative); URINE PROTEIN NEGATIVE (NEGATIVE)
[2018-08-04 03:13] VITALS: BP 122/65; PULSE 79; RESP 17; TEMP 98; O2SAT 99
--- NOTE | 2018-08-04 12:06 | CT ---
Date of service: 08/03/2018 CTA chest PE protocol Indication: sob, right sided chest pain Technique: Contiguous axial images were obtained through the chest with intravenous contrast enhancement. Sagittal and coronal reconstructions were generated and reviewed. This CT exam was performed using 1 or more of the following dose reduction techniques: Automated exposure control, adjustment of the MAA and/or kV according to patient size, and/or use of iterative reconstruction technique. IV contrast: 100 mL Omnipaque 350 IV Radiation dose (DLP): 592.32 MGy-cm. Comparison: Chest x-ray performed 12/07/17 Findings: Visualized portions of the inferior thyroid gland appear unremarkable. The mediastinal and hilar vascular structures appear within normal limits. The heart appears within normal limits of size. No large central or segmental pulmonary embolus evident. Mild paraseptal emphysema. No focal consolidation. No pleural effusion. No pneumothorax. Limited visualized portions of the upper abdomen appear grossly unremarkable. 8 mm probable splenule. Degenerative changes. Impression: Emphysematous changes. No large central or segmental pulmonary embolus identified. Preliminary impression was provided by [facility].
--- NOTE | 2018-08-04 12:25 | CT ---
Date of service: 08/04/2018 PROCEDURE: CT Lumbar Spine without contrast HISTORY: back pain COMPARISON: None available. TECHNIQUE: Axial computed tomography images were obtained of the lumbar spine without the use of intravenous contrast. Coronal and sagittal reformatted images were created and reviewed. Radiation dose: Total exam DLP = 965.31 mGy-cm. This CT exam was performed using one or more of the following dose reduction techniques: Automated exposure control, adjustment of the mA and/or kV according to patient size, and/or use of iterative reconstruction technique. FINDINGS: VERTEBRAE: Unremarkable. No fracture. Normal alignment. DISCS/SPINAL CANAL/NEURAL FORAMINA: L1-2: Unremarkable. L2-3: Unremarkable. L3-4: Unremarkable. L4-5: Unremarkable. L5-S1: Unremarkable. PARASPINAL SOFT TISSUES: Unremarkable. OTHER FINDINGS: Multilevel mild spondylosis and facet arthropathy. IMPRESSION: No fracture.
--- NOTE | 2018-08-08 22:58 | CARD ---
APPROVED REPORT Date of service: 08/03/2018 EKG Measurement Heart [id number] <Conclusion> Sinus bradycardia Otherwise normal ECG
== END 2018-08-04 03:13 | disposition home or self-care (01) ==
LOC: C.ER 21:47
DX: M54.5 Low back pain (principal); N39.41 Urge incontinence
CPT/HCPCS: 71275; 72131; 80053; 81001; 83690; 83735; 85025; 85610; 85730; 87040; 87804; 93005; 96374; 99285; J1885; Q9967